=== PATIENT | male | born 1970 | race Caucasian/White ===

== ENCOUNTER → 2017-01-14 | Outpatient (REF) | payer OTHER ==
[~2017-01-14] MED LIST: ASPI325T; METO25TA2; PLAV75TA2; ZOCO40TA
== END ==
LOC: EEVIPCON 12:34 → M LAB REF 12:34
PROVIDERS: ATTEND Physician Assistant Medical
DX: L02.511 Cutaneous abscess of right hand (principal)

== ENCOUNTER 2019-03-10 04:03 | Emergency (ER) | payer MEDICAID, OTHER, SELFPAY ==
[~2019-03-10] VITALS: Ht 177.8 cm; Wt 81.8 kg
[2019-03-10] MEDS ORDERED: ASPIRIN 81 MG CHEW TABLET PO ONE (04:15)
[2019-03-10] MEDS: NITROGLYCERIN 0.4 MG SUBL TABLET SL PRN ×3 (04:28→04:54)
[2019-03-10 04:35] LABS: BASO % 0.4 % (0.0-1.0); EOS # 0.1 10^3/uL (0.0-0.5); EOS % 0.6 % (0.0-3.0); HEMATOCRIT 47.6 % (42.0-52.0); HEMOGLOBIN 15.6 g/dl (13.5-17.5); LYMPH # 1.8 10^3/uL (1.5-5.0); LYMPH % 18.1 % (24.0-44.0); MEAN CORPUSCULAR HEMOGLOBIN 30.7 pg (27.0-33.0); MEAN CORPUSCULAR HGB CONC 32.8 g/dl (32.0-36.5); MEAN CORPUSCULAR VOLUME 93.7 fl (80.0-96.0); MONO # 1.1 10^3/uL (0.0-0.8); MONO % 10.9 % (0.0-5.0); NEUTROPHILS # 6.8 10^3/uL (1.5-8.5); NEUTROPHILS % 69.5 % (36.0-66.0); PLATELET COUNT, AUTOMATED 208 10^3/uL (150-450); RED BLOOD COUNT 5.08 10^6/uL (4.30-6.10); WHITE BLOOD COUNT 9.8 10^3/uL (4.0-10.0)
[2019-03-10] MEDS ORDERED: ISOVUE-370 76% 100ML VIAL (Q9967) As Ordered ONE (04:39)
[2019-03-10 04:45] LABS: INR 1.05; PROTHROMBIN TIME 13.4 SECONDS (11.8-14.0)
[2019-03-10 04:46] LABS: PARTIAL THROMBOPLASTIN TIME 30.2 SECONDS (25.0-38.4)
[2019-03-10 05:02] LABS: ALBUMIN 4.4 GM/DL (3.2-5.2); ALT/SGPT 26 U/L (12-78); BILIRUBIN,DIRECT 0.2 MG/DL (0.0-0.2); BILIRUBIN,TOTAL 0.7 MG/DL (0.2-1.0); BLOOD UREA NITROGEN 17 MG/DL (7-18); CALCIUM LEVEL 9.6 MG/DL (8.5-10.1); CARBON DIOXIDE LEVEL 22 MEQ/L (21-32); CHLORIDE LEVEL 110 MEQ/L (98-107); CK-MB VALUE MASS 4.1 NG/ML (<3.6); CPK CREATINE PHOSPHOKINASE 359 U/L (39-308); CREATININE FOR GFR 1.34 MG/DL (0.70-1.30); FREE T4 0.94 NG/DL (0.76-1.46); GLOMERULAR FILTRATION RATE > 60.0 (>56); GLUCOSE, FASTING 77 MG/DL (70-100); LIPASE 96 U/L (73-393); MB/CK RELATIVE INDEX 1.14 (< OR =4); POTASSIUM SERUM 4.4 MEQ/L (3.5-5.1); SODIUM LEVEL 141 MEQ/L (136-145); TOTAL PROTEIN 7.3 GM/DL (6.4-8.2); TROPONIN I 0.06 NG/ML (< 0.10)
--- NOTE | 2019-03-10 05:31 | REPVR ---
PROCEDURE INFORMATION: Exam: CT Angiography Chest With Contrast Exam date and time: 03/10/2019 4:43 AM Clinical history: 48 years old, male; Chest pain; Additional info: Chest pain rad to back R/O dissection TECHNIQUE: Imaging protocol: Computed tomographic angiography of the chest with intravenous contrast. 3D rendering: MIP and 3D reconstructed images were created and reviewed. Radiation optimization: All CT scans at this facility use at least one of these dose optimization techniques: automated exposure control; mA and/or kV adjustment per patient size (includes targeted exams where dose is matched to clinical indication); or iterative reconstruction. Contrast material: ISOVUE 370; Contrast volume: 75 ml; Contrast route: IV; COMPARISON: CT Chest with contrast 10/01/2014 9:54 PM FINDINGS: Pulmonary arteries: The study is nondiagnostic for the evaluation of pulmonary arteries due to poor opacification. Aorta: The thoracic aorta is normal in caliber with no evidence of dissection, ulcerative plaque or rupture. Lungs: There is bilateral posterior dependent lung atelectases. Pleural space: Unremarkable. No pneumothorax. No pleural effusion. Heart: Coronary vascular calcifications seen particularly in the LAD and RCA. There is apparent thickening of the left ventricle wall and interventricular septum. Liver: The liver is hypoattenuated. Lymph nodes: Unremarkable. No enlarged lymph nodes. Bones/joints: There is mild loss of height of T11 vertebral body with a large Schmorl's node in the superior endplate. This is unchanged since 2014. Soft tissues: Unremarkable. IMPRESSION: 1. No CT evidence of thoracic aortic aneurysm, dissection, ulcerative plaque or rupture. 2. Possible left ventricular hypertrophy. Correlation with echocardiography is suggested. 3. Coronary vascular calcification particularly in the LAD and RCA. 4. Fatty infiltration of the liver. Electronically signed by: Altaf Plummer On 03/10/2019 05:30:47 AM
[2019-03-10] MEDS ORDERED: HEPARIN DRIP 25,000 UNITS in IV 1 EA IV SCH (05:48)
[2019-03-10] MEDS ORDERED: CLOPIDOGREL 300 MG TAB (PLAVIX) PO STA (05:48)
[2019-03-10] MEDS ORDERED: NITROGLYCERIN 2% OINT 1 GM *U/D* PKT TOP ONE (06:00)
[2019-03-10] MEDS ORDERED: HEPARIN SOD (PORCINE) 5000 UNITS/ML VIAL IV ONE (06:00)
[2019-03-10 06:07] VITALS: BP 112/69
[2019-03-10 06:42] VITALS: BP 127/73
== END 2019-03-10 06:44 | disposition short-term general hospital (02) ==
LOC: M ED 04:03
DX: I20.0 Unstable angina (principal); K76.0 Fatty (change of) liver, not elsewhere classified; I25.84 Coronary atherosclerosis due to calcified coronary lesion; I25.2 Old myocardial infarction; I10 Essential (primary) hypertension; Z95.5 Presence of coronary angioplasty implant and graft; F17.210 Nicotine dependence, cigarettes, uncomplicated
CPT/HCPCS: 71275; 80047; 80048; 80076; 82550; 82553; 83690; 84439; 84443; 85025; 85610; 85730; 93041; 94760; 96374; 99285; Q9967

== ENCOUNTER 2019-09-24 12:32 | Day surgery (SDC) | payer OTHER ==
[~2019-09-24] VITALS: Ht 177.8 cm; Wt 102.1 kg
[2019-09-24] MEDS ORDERED: ceFAZolin SOD 2 GM in IV 1 EA IV ONE (12:45)
[2019-09-24] MEDS ORDERED: KEFL500C17 PO (13:13)
[2019-09-24] MEDS ORDERED: CLIN300C5 PO (13:13)
[2019-09-24] MEDS ORDERED: CARV6.25 PO (13:13)
[2019-09-24] MEDS ORDERED: LEVO100T5 PO (13:13)
[2019-09-24] MEDS ORDERED: ASPI81TA26 PO (13:13)
[2019-09-24] MEDS ORDERED: OXYC1TAB23 PO (13:13)
[2019-09-24] MEDS ORDERED: LISI-542 PO (13:13)
[2019-09-24] MEDS ORDERED: CLOP75TA2 PO (13:13)
[2019-09-24] MEDS ORDERED: ATOR40TA75 PO (13:13)
[2019-09-24] MEDS ORDERED: LOSA100T50 PO (13:13)
[2019-09-24] MEDS ORDERED: NITR0.4S14 SL (13:13)
[2019-09-24] MEDS ORDERED: MELA10CA PO (13:13)
[2019-09-24] MEDS ORDERED: BUPIVACAINE/EPIN 0.25% 30 ML VIAL As Ordered ONE (14:22)
[2019-09-24] MEDS ORDERED: LIDOCAINE 2% 100MG/5ML SDV (FOR ANES.) As Ordered ONE (14:55)
[2019-09-24] MEDS ORDERED: ONDANSETRON 4MG/2ML VIAL As Ordered ONE (14:55)
[2019-09-24] MEDS ORDERED: fentaNYL 250 MCG/5 ML INJECTION (J3010) As Ordered ONE (14:55)
[2019-09-24] MEDS ORDERED: dexameTHASONE 4 MG/ML 1ML VIAL (J1100 PER 1MG) As Ordered ONE (14:55)
[2019-09-24] MEDS ORDERED: MIDAZOLAM INJ 2MG/2ML VIAL (J2250 PER 1MG) As Ordered ONE (14:55)
[2019-09-24] MEDS ORDERED: propofoL 200 MG/20 ML VIAL As Ordered ONE (14:55)
[2019-09-24] MEDS ORDERED: ePHEDrine SULFATE 25 MG/5 ML(5MG/ML) SYRINGE As Ordered ONE (15:07)
[2019-09-24] MEDS ORDERED: HYDROMORPHONE HCL 0.5 MG/ 0.5 ML SYRINGE (J1170 PER 1) IV PRN (16:00)
[2019-09-24] MEDS ORDERED: oxyCODONE 5MG TAB PO PRN ×2 (16:00)
[2019-09-24] MEDS ORDERED: LR 1,000 ML IV SCH (16:00)
[2019-09-24] MEDS ORDERED: ONDANSETRON 4MG/2ML VIAL IV PRN (16:00)
[2019-09-24] MEDS ORDERED: fentaNYL 100 MCG/2 ML INJECTION (J3010) IV PRN (16:00)
[2019-09-24 16:55] VITALS: BP 145/93
--- NOTE | 2019-09-24 17:01 | RO ---
DATE OF PROCEDURE: 09/24/2019 PREPROCEDURE DIAGNOSIS: Left index finger infection with extensor tendon laceration. POSTPROCEDURE DIAGNOSIS: Left index finger infection with extensor tendon laceration, open fracture of P1 and P2 interarticular at the proximal interphalangeal (PIP) with septic arthritis of the proximal interphalangeal joint. PROCEDURE: SURGEON: Yuri Vilchis MD AIRCONDITIONING ENGINEER: None. ANESTHESIA: INDICATIONS: This is a 49-year-old male that suffered a traumatic laceration to his left index finger and subsequent infection with extensor tendon injury. He was placed on antibiotics in the emergency room (ER). We discussed operative intervention, including the benefits and risks, including, but not limited to, infection, damage to surrounding structures, incomplete relief and need for further surgery, and patient wished to proceed. TOURNIQUET TIME: 20 minutes. PREOPERATIVE ANTIBIOTICS: 2 grams of Ancef. SPECIMENS: Two cultures were taken along with specimen for Gram stain and culture. COMPLICATIONS: None. BLOOD LOSS: Minimal. DESCRIPTION OF PROCEDURE: The patient was brought back to the operating room (OR) in the supine position, underwent moderate sedation at which point we had a time-out confirming side, site, and surgery. Once in agreement, we used 10 mL of 0.25% Marcaine with epinephrine in the form of a digital block. We then prepped and draped the left hand in the usual fashion. We then elevated the tourniquet up to 250 mmHg, extended his transverse incision over the PIP proximally and distally in a zigzag oblique form, encasing most of the middle phalanx and proximal phalanx. At which point, we were able to identify the proximal and distal aspect of the extensor tendon with a laceration right at the PIP just proximal to the central slip insertion. We encountered gross purulence in subcutaneous tissue. We then extended the tendon laceration radially and ulnarly to get greater exposure. We then opened up the capsule of the PIP to expose an open fracture with cortical defect of the proximal and middle phalanx along with purulence within the joint. At which point, we used a combination of Stiefel curettes and rongeur to sharply debride both the open fractures of the middle and proximal phalanx along with irrigate thoroughly near the joints to treat the septic arthritis of the PIP along with the open fractures. Once we were happy with the debridement both deep and superficially, we repaired the extensor tendon laceration with #3-0 PDS, and then we closed the skin with #3-0 nylon. The patient was placed in an extension blocking splint with the wrist in extension of fall four fingers. Tourniquet was let down, patient was awakened and taken to the post-anesthesia care unit (PACU) in stable condition. POSTOPERATIVE PLAN: The patient is to continue with antibiotics. We will followup on the cultures and if need be, we will change the antibiotics. He will also work on pain control. Will him form an appointment with a hand physical therapist to make a Thermoplastic splint so that he can have guided range of motion exercises. The patient expressed understanding and agreement with the plan ahead of time.
== END 2019-09-24 16:57 | disposition home or self-care (01) ==
LOC: M SDC 12:32
PROVIDERS: ATTEND Orthopaedic Surgery Hand Surgery
DX: S62.641B Nondisplaced fracture of proximal phalanx of left index finger, initial encounter for open fracture (principal); S62.651A Nondisplaced fracture of middle phalanx of left index finger, initial encounter for closed fracture; L03.012 Cellulitis of left finger; I10 Essential (primary) hypertension; E03.9 Hypothyroidism, unspecified; I25.10 Atherosclerotic heart disease of native coronary artery without angina pectoris; Z98.61 Coronary angioplasty status; E78.5 Hyperlipidemia, unspecified; F41.9 Anxiety disorder, unspecified; F32.9 Major depressive disorder, single episode, unspecified; Z79.82 Long term (current) use of aspirin; Z79.899 Other long term (current) drug therapy; Z79.01 Long term (current) use of anticoagulants
CPT/HCPCS: 11011; 26418; 26735; 87070; 87075; 87077; 87186; 87205; 88304; J0690; J1100; J2250; J2405; J3010; U0002

== ENCOUNTER 2019-10-06 21:14 | Emergency (ER) | payer OTHER ==
[~2019-10-06] VITALS: Ht 177.8 cm; Wt 104.0 kg
[~2019-10-06 21:14] MED LIST changes: +ASPI81TA26 PO; +ATOR40TA75 PO; +CARV6.25 PO; +CLIN300C5 PO; +CLOP75TA2 PO; +KEFL500C17 PO; +LEVO100T5 PO; +LISI-542 PO; +LOSA100T50 PO; +MELA10CA PO; +NITR0.4S14 SL; +OXYC1TAB23 PO
[2019-10-06 21:19] VITALS: BP 190/105
[2019-10-06] MEDS ORDERED: DOXYCYCLINE (21:19)
[2019-10-06] MEDS ORDERED: OXYCOD/APAP (21:19)
== END 2019-10-06 21:53 | disposition left against medical advice (07) ==
LOC: M ED 21:14
DX: Z53.21 Procedure and treatment not carried out due to patient leaving prior to being seen by health care provider (principal)

== ENCOUNTER → 2019-12-31 | Outpatient (CLI) | payer MEDICAID ==
[~2019-12-31] MED LIST changes: +DOXYCYCLINE; +OXYCOD/APAP
== END ==
LOC: M OUTALCOH 07:43
PROVIDERS: ATTEND Psychiatry & Neurology Addiction Medicine
DX: F14.20 Cocaine dependence, uncomplicated (principal)

== ENCOUNTER 2020-01-18 08:45 | Outpatient (RCR) | payer MEDICAID | END 2020-01-20 | LOC: M OUTALCOH 08:45 | PROVIDERS: ATTEND Psychiatry & Neurology Addiction Medicine | DX: F14.20 Cocaine dependence, uncomplicated (principal); F17.200 Nicotine dependence, unspecified, uncomplicated ==

== ENCOUNTER 2020-05-22 01:58 | Emergency (ER) | payer MEDICAID ==
[~2020-05-22] VITALS: Ht 177.8 cm; Wt 109.1 kg
[~2020-05-22 01:58] MED LIST changes: -CLIN300C5 PO; +CLIN300C6 PO
--- OUTSIDE RECORDS SUMMARY | 2020-05-22 02:02 | CCD | Continuity of Care Document ---
Author Author Venkatesh SAVAGE MD Organization Unknown Address [id number], [place] [address] Phone [phone] Care Team Providers Care Crm Analyst Name Role Phone Guy Morin MD AUTM [phone] Problems Active Problems Provider Date Chronic combined systolic and diastolic heart failure ECHO Onset: 09/17/2019 Chronic ischemic heart disease ECHO Onset: Electrocardiogram abnormal ECHO Onset: 2019 Palpitations Holter/Event/Telemetry Onset: 09/17/2019 Atherosclerotic heart disease of [place] coronary arter y without angina pectoris Shant Savage MD Onset: 09/17/2019 Old myocardial infarction Shant Savage MD Onset: 2019 Patient post percutaneous transluminal coronary angiop lasty Shant Savage MD Onset: 09/17/2019 Essential hypertension Shant Savage MD Onset: 0 Mixed hyperlipidemia Shant Savage MD Onset: 09/17/2019 Obesity Shant Savage MD Onset: 09/17/2019 Precordial pain Shant Savage MD Onset: 09/17/2019 Tobacco user Shant Savage MD Onset: 09/17/2019 Counseling about tobacco use Shant Savage MD Onset: Dietary management surveillance Shant Savage MD Onset: 09/17/2019 Noncompliance with treatment Shant Savage MD Onset: Social History Type Date Description Comments Sex Unknown ETOH Use Does not consume alcohol Tobacco Use Start: Unknown Patient is a current smoker, smo kes every day up to 2ppd, started at age 14 Recreational Drug Use 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 5 miles daily Exercise Type/Frequency Does housework sporadica lly Exercise Limitations Shortness Of Breath Exercise Limitations Fatigue Allergies, Adverse Reactions, Alerts Description No Known Drug Allergies Medications Active Medications SIG Qnty Indications Ordering Provide r Date Carvedilol 25mg Tablets 2 by mouth twice a day 360tabs I10 Shant Savage MD 01/04/2020 I50.42 I25.2 Chlorthalidone 25mg Tablets 1 by mouth every day 90tabs I10 Shant Savage MD 11/23/2019 Seroquel 50mg Tablets 1 by mouth once a day at bedtime Guy Morin MD 11/12/2019 Losartan Potassium 100mg Tablets 1 by mouth every night at bedtime 30tabs I50.42 Lizbet Tristan 09/17/2019 Nitrostat 0.4mg Tablets Sub 1 sl every 5min x3 as needed for chest pain Guy Morin MD 07/22/2019 Clopidogrel Bisulfate 75mg Tablets 1 by mouth every day Guy Morin MD 07/22/[address] 1 by mouth every day Guy Morin MD 07/22/2019 Euthyrox 100mcg Tablets 1 by mouth daily 90tabs Shant Savage MD 07/22/2019 Atorvastatin Calcium 40mg Tablets 1 by mouth every night at bedtime Guy Morin MD 07/22/2019 History Medications Carvedilol 25mg Tablets 1 by mouth twice a day 180tabs I10 Shant Savage MD 11/23/2019 - 01/04/2020 I50.42 I25.2 Carvedilol 12.5mg Tablets 1 by mouth twice a day 60tabs I10 Shant Savage MD 09/17/2019 - 11/23/2019 I50.42 I25.2 Spironolactone 25mg Tablets 1 by mouth every day 30tabs I50.42 Shant Savage MD 09/17/2019 - 09/19/2019 Immunizations Description No Information Available Vital Signs Date Vital Result Comment 02/16/2020 8:05am Weight 247.00 lb Home Weight 238lb home weight Height 70 inches 5'10" BMI (Body Mass Index) 35.4 kg/m2 Heart Rate 82 /min BP Systolic Sitting 153 mmHg Omron, large cuff/Ra BP Diastolic Sitting 114 mmHg Omron, large cuff/R a 01/04/2020 7:56am Weight 227.00 lb Height 70 inches 5'10" BMI (Body Mass Index) 32.6 kg/m2 Heart Rate 84 /min BP Systolic Sitting 130 mmHg Omron large cuff, Ra BP Diastolic Sitting 101 mmHg Omron large cuff, R a Results Test Acquired Date Facility Test Result H/L Range Note Laboratory test finding 03/14/2020 [facility] [place] [address] [phone] Pro-BNP 116 pg/mL 0 - 125 Basic Metabolic Panel 03/14/[address] [facility] [place] [address] [phone] Basic Metabolic Pane (SEE NOTE) 1 Sodium 142 mEq/L 134 - 153 Potassium 5.1 mEq/L High 3.6 - 5.0 Chloride 105 mEq/L 98 - 107 Co2 30 mEq/L 22 - 30 Glucose 99 mg/dL 65 - 110 BUN 13 mg/dL 7 - 21 Creatinine 1.0 mg/dL 0.7 - 1.5 BUN/Creat 13 8 - 27 Calcium 10.3 mg/dL High 8.4 - 10.2 Anion Gap 7.0 mmol/L Low 8.0 - 16.0 Age 49 yrs Afr Amer GFR >60 mL/min Non-Aa GFR >60 mL/min 2 Laboratory test finding 09/17/2019 [facility] NT-proBNP 153 pg/mL High 0-121 3 Renal Profile 09/17/2019 [facility] Glucose 109 mg/dL High 65-99 BUN 21 mg/dL 6-24 Creatinine 1.16 mg/dL 0.76-1.27 eGFR If NonAfricn Am 73 mL/min/1.73 >59 eGFR If Africn Am 84 mL/min/1.73 >59 BUN/Creatinine Ratio 18 9-20 Sodium 140 mmol/L 134-144 Potassium 5.2 mmol/L 3.5-5.2 Chloride 105 mmol/L 96-106 Carbon Dioxide, Total 20 mmol/L 20-29 Calcium 9.8 mg/dL 8.7-10.2 Phosphorus 3.5 mg/dL 2.8-4.1 Albumin 4.5 g/dL 3.8-4.9 Bilirubin Panel 09/17/2019 [facility] [place] Bilirubin, Total <0.2 mg/dL 0.0-1.2 Bilirubin, Direct 0.08 mg/dL 0.00-0.40 Bilirubin, Indirect <.12 mg/dL 0.10-0.80 Laboratory test finding 09/17/2019 [facility] [place] PDF [id number] SEE IMAGE 1 BASIC METABOLIC PANEL 2 Male GFR Interprentation 20-49 yrs >60 mL/min Normal 50-59 yrs >56 mL/min Normal 60-69 yrs >49 mL/min Normal 70-79yrs >42 mL/min Normal 80 and above >35 mL/min Normal Female GFR Interpretation 20-39 yrs >60 mL/min Normal 40-49 yrs >58 mL/min Normal 50-59 yrs >51 mL/min Normal 60-69 yrs >45 mL/min Normal 70-79 yrs >39 mL/min Normal 80 and above >32 mL/min Normal 3 The following cut-points hav e been suggested for the use of proBNP for the diagnostic evaluation of heart failure (HF) in patients with acute dyspnea: Modality Age Optimal Cut (years) Point Diagnosis (rule in HF) <50 450 pg/mL 50 - 75 900 pg/mL >75 1800 pg/mL Exclusion (rule out HF) Age independent 300 pg/mL Procedures Description No Information Available Medical Devices Description No Information Available Encounters Type Date Location Provider Dx Diagnosis Office Visit 02/16/2020 8:00a Main Office Shant Savage MD I50.4 2 Chronic combined systolic and diastolic hrt fail I10 Essential (primary) hyperten deonna Z91.128 Patient's intentl undrdose o f meds regimen for oth reason F17.210 Nicotine dependence, cigaret mindi, uncomplicated Z87.891 Personal history of nicotine dependence Z71.6 Tobacco abuse counseling Office Visit 01/04/2020 8:00a Main Office Shant Savage MD I50.4 2 Chronic combined systolic and diastolic hrt fail I10 Essential (primary) hyperten deonna F17.210 Nicotine dependence, cigaret mindi, uncomplicated Z87.891 Personal history of nicotine dependence Z71.6 Tobacco abuse counseling Office Visit 11/23/2019 1:30p Main Office Shant Savage MD I50.4 2 Chronic combined systolic and diastolic hrt fail I10 Essential (primary) hyperten deonna F17.210 Nicotine dependence, cigaret mindi, uncomplicated Z87.891 Personal history of nicotine dependence Z71.6 Tobacco abuse counseling Office Visit 11/13/2019 8:00a Main Office Shant aSvage MD I50.4 2 Chronic combined systolic and diastolic hrt fail I10 Essential (primary) hyperten deonna Z91.14 Patient's other noncomplianc e with medication regimen F17.210 Nicotine dependence, cigaret mindi, uncomplicated Z87.891 Personal history of nicotine dependence Z71.6 Tobacco abuse counseling Office Visit 09/17/2019 8:00a Main Office Shant Savage MD I50.4 2 Chronic combined systolic and diastolic hrt fail I10 Essential (primary) hyperten deonna F17.210 Nicotine dependence, cigaret mindi, uncomplicated Z87.891 Personal history of nicotine dependence Z71.6 Tobacco abuse counseling Assessments Date Code Description Provider 02/16/2020 I50.42 Chronic combined sys tolic (congestive) and diastolic (congestive) heart failure Shant Savage MD 02/16/2020 I10 Essential (primary) hypertension Shant Savage MD 02/16/2020 Z91.128 Patient's intentiona l underdosing of medication regimen for other reason Shant Savage MD 02/16/2020 F17.210 Nicotine dependence, cigarettes, uncomplicated Shant Savage MD 02/16/2020 Z87.891 Personal history of nicotine dep endence Shant Savage MD 02/16/2020 Z71.6 Tobacco abuse counseling Shant Savage MD 01/04/2020 I50.42 Chronic combined sys tolic (congestive) and diastolic (congestive) heart failure Shant Savage MD 01/04/2020 I10 Essential (primary) hypertension Shant Savage MD 01/04/2020 F17.210 Nicotine dependence, cigarettes, uncomplicated Shant Savage MD 01/04/2020 Z87.891 Personal history of nicotine dep endence Shant Savage MD 01/04/2020 Z71.6 Tobacco abuse counseling Shant Savage MD 11/23/2019 I50.42 Chronic combined sys tolic (congestive) and diastolic (congestive) heart failure Shant Savage MD 11/23/2019 I10 Essential (primary) hypertension Shant Savage MD 11/23/2019 F17.210 Nicotine dependence, cigarettes, uncomplicated Shant Savage MD 11/23/2019 Z87.891 Personal history of nicotine dep endence Shant Savage MD 11/23/2019 Z71.6 Tobacco abuse counseling Shant Savage MD 11/13/2019 I50.42 Chronic combined sys tolic (congestive) and diastolic (congestive) heart failure Shant Savage MD 11/13/2019 I10 Essential (primary) hypertension Shant Savage MD 11/13/2019 Z91.14 Patient's other noncompliance wi th medication regimen Shant Savage MD 11/13/2019 F17.210 Nicotine dependence, cigarettes, uncomplicated Shant Savage MD 11/13/2019 Z87.891 Personal history of nicotine dep endence Shant Savage MD 11/13/2019 Z71.6 Tobacco abuse counseling Shant Savage MD 09/17/2019 I50.42 Chronic combined sys tolic (congestive) and diastolic (congestive) heart failure Shant Savage MD 09/17/2019 I10 Essential (primary) hypertension Shant Savage MD 09/17/2019 F17.210 Nicotine dependence, cigarettes, uncomplicated Shant Savage MD 09/17/2019 Z87.891 Personal history of nicotine dep endence Shant Savage MD 09/17/2019 Z71.6 Tobacco abuse counseling Shant Savage MD Plan of Treatment Future Appointment(s):* 03/29/2020 12:45 pm - [facility] at Main Office 02/16/2020 - Shant Savage MD* I50.42 Chronic combined systolic (congestive) and diastolic (congestive) heart failure* New Labs:* NT Probnp QN Ser/Plas, Ordered: 02/16/20 * BMP7 W/Egfr, Ordered: 02/16/20 * Recommendations:* Patient has been taking his medications less than half the time and that he is not taking any medication for the past 2 days. He was strongly advised to be compliant with his medications and if he does not do so, he runs the risk of increased risk of as well as worsening heart failure/shortness of breath. I suggested he set an alarm on his smart phone to help him remember to take medications. Continue losartan, carvedilol, chlorthalidone at the current dosages. NT proBNP & BMP were ordered. * I10 Essential (primary) hypertension* Recommendations:* As noted above, he was encouraged to be compliant with his medications. Continue losartan, carvedilol, chlorthalidone at the current dosages. * Z91.128 Patient's intentional underdosing of medication regimen for other reason* Recommendations:* I suggested the patient set alarms on his smart phone to help him remember to take medications. I strongly emphasized the importance of being compliant with his medications to control heart failure, shortness of breath, and systemic hypertension. I brought to the patient's attention that failure to be compliant with medications increase the risk for worsening heart failure, increased risk of cardiac , and adverse outcomes of uncontrolled systemic hypertension. * F17.210 Nicotine dependence, cigarettes, uncomplicated* Recommendations:* Patient was strongly encouraged to quit smoking. Health hazards of tobacco use were reviewed with the patient including, but not all-inclusive: COPD, lung cancer, atherosclerotic disease such as carotid artery disease, CAD, and PAD. Patient does not wish to give up cigarette smoking at this time. * Z87.891 Personal history of nicotine dependence * Z71.6 Tobacco abuse counseling * All * Follow up:* Clinic visit in 6 weeks. Functional Status Functional Condition Comment Date Status Independent with all ADL's Activ e Mental Status Description No Information Available Referrals Description No Information Available
--- OUTSIDE RECORDS SUMMARY | 2020-05-22 02:02 | CCD ---
Author Author [facility] Organization [facility] Address Unknown Phone Unavailable Care Team Providers Care Composite Bond Technician Name Role Phone LiAntonionbo PA Unavailable Unavailable Li, Zhenbo PA Unavailable Unavailable Namrata Zhenbo PA Unavailable Unavailable Antonio Ottnbo PA Unavailable Unavailable ANTECOLCristina MD Unavailable Unavailable ANTECOLCristina MD Unavailable Unavailable ANTECOLCristina MD Unavailable Unavailable ANTECOLCristina MD Unavailable Unavailable ANTECOLCristina MD Unavailable Unavailable ANTECOLCristina MD Unavailable Unavailable ANTECOLCristina MD Unavailable Unavailable ANTECOLCristina MD Unavailable Unavailable ANTECOLCristina MD Unavailable Unavailable ANTECOLCristina MD Unavailable Unavailable ANTECOLCristina MD Unavailable Unavailable ANTECOLCristina MD Unavailable Unavailable ANTECOLCristina MD Unavailable Unavailable ANTECOLCristina MD Unavailable Unavailable ANTECOLCristina MD Unavailable Unavailable ANTECOLCristina MD Unavailable Unavailable ANTECOLCristina MD Unavailable Unavailable ANTECOLCristina MD Unavailable Unavailable ANTECOLCristina MD Unavailable Unavailable ANTECOLCristina MD Unavailable Unavailable ANTECOLCristina MD Unavailable Unavailable ANTECOLCristina MD Unavailable Unavailable ANTECOLCristina MD Unavailable Unavailable ANTECOLCristina MD Unavailable Unavailable ANTECOLCristina MD Unavailable Unavailable ANTECOLCristina MD Unavailable Unavailable ANTECOLCristina MD Unavailable Unavailable ANTECOL, Cristina WILLETT MD Unavailable Unavailable ANTECOL, Cristina WILLETT MD Unavailable Unavailable ANTECOL, Cristina WILLETT MD Unavailable Unavailable ANTECOL, Cristina WILLETT MD Unavailable Unavailable ANTECOL, Cristina WILLETT MD Unavailable Unavailable ANTECOL, Cristina WILLETT MD Unavailable Unavailable ANTECOL, Cristina WILLETT MD Unavailable Unavailable ANTECOL, Cristina WILLETT MD Unavailable Unavailable ANTECOL, Cristina WILLETT MD Unavailable Unavailable ANTECOL, Cristina WILLETT MD Unavailable Unavailable ANTECOL, Cristina WILLETT MD Unavailable Unavailable ANTECOL, Cristina WILLETT MD Unavailable Unavailable ANTECOL, Cristina WILLETT MD Unavailable Unavailable ANTECOL, Cristina WILLETT MD Unavailable Unavailable ANTECOL, Cristina WILLETT MD Unavailable Unavailable ANTECOL, Cristina WILLETT MD Unavailable Unavailable ANTECOL, Cristina WILLETT MD Unavailable Unavailable ANTECOL, Cristina WILLETT MD Unavailable Unavailable ANTECOL, Cristina WILLETT MD Unavailable Unavailable ANTECOL, Cristina WILLETT MD Unavailable Unavailable ANTECOL, Cristina WILLETT MD Unavailable Unavailable ANTECOL, Cristina WILLETT MD Unavailable Unavailable ANTECOL, Cristina WILLETT MD Unavailable Unavailable ANTECOL, Cristina WILLETT MD Unavailable Unavailable ANTECOL, Cristina WILLETT MD Unavailable Unavailable ANTECOL, Cristina WILLETT MD Unavailable Unavailable ANTECOL, Cristina WILLETT MD Unavailable Unavailable ANTECOL, Cristina WILLETT MD Unavailable Unavailable Ajay Grossman MD Unavailable Unavailable Ajay Grossman MD Unavailable Unavailable Ajay Grossman MD Unavailable Unavailable Ajay Grossman MD Unavailable Unavailable Ajay Grossman MD Unavailable Unavailable Ajay Grossman MD Unavailable Unavailable Ajay Grossman MD Unavailable Unavailable Ajay Grossman MD Unavailable Unavailable Ajay Grossman MD Unavailable Unavailable Ajay Grossman MD Unavailable Unavailable Ajay Grossman MD Unavailable Unavailable Ajay Grossman MD Unavailable Unavailable Ajay Grossman MD Unavailable Unavailable Ajay Grossman MD Unavailable Unavailable Ajay Grossman MD Unavailable Unavailable Ajay Grossman MD Unavailable Unavailable Ajay Grossman MD Unavailable Unavailable Rashida Morin MD Unavailable Unavailable Rashida Morin MD Unavailable Unavailable Rashida Morin MD Unavailable Unavailable Rashida Morin MD Unavailable Unavailable Rashida Morin MD Unavailable Unavailable Rashida Morin MD Unavailable Unavailable Rashida Morin MD Unavailable Unavailable Rashida Morin MD Unavailable Unavailable Rashida Morin MD Unavailable Unavailable Rashida Morin MD Unavailable Unavailable Rashida Morin MD Unavailable Unavailable Rashida Morin MD Unavailable Unavailable Rashida Morin MD Unavailable Unavailable Rashida Morin MD Unavailable Unavailable Rashida Morin MD Unavailable Unavailable Rashida Morin MD Unavailable Unavailable Rashida Morin MD Unavailable Unavailable Rashida Morin MD Unavailable Unavailable Rashida Morin MD Unavailable Unavailable Rashida Morin MD Unavailable Unavailable Rashida Morin MD Unavailable Unavailable Rsahida Morin MD Unavailable Unavailable Rashida Morin MD Unavailable Unavailable Rashida Morin MD Unavailable Unavailable Rashida Morin MD Unavailable Unavailable Rashida Morin MD Unavailable Unavailable Rashida Morin MD Unavailable Unavailable Rashida Morin MD Unavailable Unavailable Rashida Morin MD Unavailable Unavailable Rashida Morin MD Unavailable Unavailable Rashida Morin MD Unavailable Unavailable Rashida Morin MD Unavailable Unavailable Rashida Morin MD Unavailable Unavailable Rashida Morin MD Unavailable Unavailable Rashida Morin MD Unavailable Unavailable Rashida Morin MD Unavailable Unavailable Rashida Morin MD Unavailable Unavailable Rashida Morin MD Unavailable Unavailable Rashida Morin MD Unavailable Unavailable Rashida Morin MD Unavailable Unavailable Rashida Morin MD Unavailable Unavailable Rashida Morin MD Unavailable Unavailable Rashida Morin MD Unavailable Unavailable Rashida Morin MD Unavailable Unavailable Rashida Morin MD Unavailable Unavailable Rashida Morin MD Unavailable Unavailable Rashida Morin MD Unavailable Unavailable Rashida Morin MD Unavailable Unavailable Rashida Morin MD Unavailable Unavailable Rashida Morin MD Unavailable Unavailable Rashida Morin MD Unavailable Unavailable Rashida Morin MD Unavailable Unavailable Rashida Morin MD Unavailable Unavailable Rashida Morin MD Unavailable Unavailable Rashida Morin MD Unavailable Unavailable Rashida Morin MD Unavailable Unavailable Rashida Morin MD Unavailable Unavailable Rashida Morin MD Unavailable Unavailable Rashida Morin MD Unavailable Unavailable Rashida Morin MD Unavailable Unavailable Rashida Morin MD Unavailable Unavailable Rashida Morin MD Unavailable Unavailable Rashida Morin MD Unavailable Unavailable Rashida Morin MD Unavailable Unavailable Rashida Morin MD Unavailable Unavailable Rashida Morin MD Unavailable Unavailable Rashida Morin MD Unavailable Unavailable Rashida Morin MD Unavailable Unavailable Rashida Morin MD Unavailable Unavailable Rashida Morin MD Unavailable Unavailable Rashida Morin MD Unavailable Unavailable Rashida Morin MD Unavailable Unavailable Rashida Morin MD Unavailable Unavailable Rashida Morin MD Unavailable Unavailable Rashida Morin MD Unavailable Unavailable Rashida Morin MD Unavailable Unavailable Rashida Morin MD Unavailable Unavailable Rashida Morin MD Unavailable Unavailable Rashida Morin MD Unavailable Unavailable Rashida Morin MD Unavailable Unavailable Rashida Morin MD Unavailable Unavailable Rashida Morin MD Unavailable Unavailable Rashida Morin MD Unavailable Unavailable Rashida Morin MD Unavailable Unavailable Rashida Morin MD Unavailable Unavailable Rashida Morin MD Unavailable Unavailable Rashida Morin MD Unavailable Unavailable Rashida Morin MD Unavailable Unavailable Rashida Morin MD Unavailable Unavailable Tamie Vilchis MD Unavailable Unavailable Tamie Vilchis MD Unavailable Unavailable Tamie Vilchis MD Unavailable Unavailable Tamie Vilchis MD Unavailable Unavailable Tamie Vilchis MD Unavailable Unavailable Tamie Vilchis MD Unavailable Unavailable Tamie Vilchis MD Unavailable Unavailable Tamie Vilchis MD Unavailable Unavailable Tamie Vilchis MD Unavailable Unavailable Tamie Vilchis MD Unavailable Unavailable Tamie Vilchis MD Unavailable Unavailable Tamie Vilchis MD Unavailable Unavailable Tamie Vilchis MD Unavailable Unavailable Tamie Vilchis MD Unavailable Unavailable Tamie Vilchis MD Unavailable Unavailable Tamei Vilchis MD Unavailable Unavailable Tamie Vilchis MD Unavailable Unavailable Tamie Vilchis MD Unavailable Unavailable Tamie Vilchis MD Unavailable Unavailable Tamie Vilchis MD Unavailable Unavailable Tamie Vilchis MD Unavailable Unavailable Tamie Vilchis MD Unavailable Unavailable Tamie Vilchis MD Unavailable Unavailable Tamie Vilchis MD Unavailable Unavailable Tamie Vilchis MD Unavailable Unavailable NON, PHYSICIAN STAFF Unavailable Unavailable ISELA GARCIA MD Unavailable Unavailable JOSE MAMonicaBOLIDIA GREENFIELD MD Unavailable Unavailable JOSE MAMonicaBOLIDIA GREENFIELD MD Unavailable Unavailable JOSE MAQBOLIDIA GIN MD Unavailable Unavailable JOSE MAQBOOL GIN MD Unavailable Unavailable JOSE MAQBOOL GIN MD Unavailable Unavailable JOSE MAQBOOL GIN MD Unavailable Unavailable JOSE MAQBOOL GIN Unavailable Unavailable JOSE MAQBOOL GIN Unavailable Unavailable JOSE MAQBOOL GIN Unavailable Unavailable JOSE MAQBOOL GIN MD Unavailable Unavailable JOSE MAQBOOL GIN MD Unavailable Unavailable JOSE MAQBOOL GIN MD Unavailable Unavailable JOSE MAQBOOL GIN Unavailable Unavailable JOSE, MAQBOOL GIN MD Unavailable Unavailable JOSE, MAQBOOL GIN MD Unavailable Unavailable JOSE, MAQBOOL GIN MD Unavailable Unavailable JOSE, MAQBOOL GIN MD Unavailable Unavailable JOSE, MAQBOOL GIN MD Unavailable Unavailable JOSE, MAQBOOL GIN MD Unavailable Unavailable JOSE, MAQBOOL GIN MD Unavailable Unavailable JOSE, MAQBOOL GIN MD Unavailable Unavailable JOSE, MAQBOOL GIN MD Unavailable Unavailable JOSE, MAQBOOL GIN MD Unavailable Unavailable JOSE, MAQBOOL GIN MD Unavailable Unavailable JOSE, MAQBOOL GIN MD Unavailable Unavailable OJSE, MAQBOOL GIN MD Unavailable Unavailable JOSE, MAQBOOL GIN MD Unavailable Unavailable JOSE, MAQBOOL GIN MD Unavailable Unavailable JOSE, MAQBOOL GIN MD Unavailable Unavailable JOSE, MAQBOOL GIN MD Unavailable Unavailable JOSE, MAQBOOL GIN MD Unavailable Unavailable JOSE, MAQBOOL GIN MD Unavailable Unavailable JOSE, MAQBOOL GIN MD Unavailable Unavailable JOSE, MAQBOOL GIN MD Unavailable Unavailable JOSE, MAQBOOL GIN MD Unavailable Unavailable JOSE, MAQBOOL GIN MD Unavailable Unavailable JOSE, MAQBOOL GIN MD Unavailable Unavailable JOSE, MAQBOOL GIN MD Unavailable Unavailable JOSE, MAQBOOL GIN MD Unavailable Unavailable JOSE, MAQBOOL GIN MD Unavailable Unavailable JOSE, MAQBOOL GIN MD Unavailable Unavailable JOSE, MAQBOOL GIN MD Unavailable Unavailable JOSE, MAQBOOL GIN MD Unavailable Unavailable JOSE, MAQBOOL GIN MD Unavailable Unavailable JOSE, MAQBOOL GIN MD Unavailable Unavailable JOSE, MAQBOOL GIN MD Unavailable Unavailable JOSE, MAQBOOL GIN MD Unavailable Unavailable JOSE, MAQBOOL GIN MD Unavailable Unavailable JOSE, MAQBOOL GIN MD Unavailable Unavailable JOSE, MAQBOOL GIN MD Unavailable Unavailable JOSE, MAQBOOL GIN MD Unavailable Unavailable JOSE, MAQBOOL GIN MD Unavailable Unavailable JOSE, MAQBOOL GIN MD Unavailable Unavailable JOSE, MAQBOOL GIN MD Unavailable Unavailable JOSE, MAQBOOL GIN MD Unavailable Unavailable JOSE, MAQBOOL GIN MD Unavailable Unavailable JOSE, MAQBOOL GIN MD Unavailable Unavailable JOSE, MAQBOOL GIN MD Unavailable Unavailable JOSE, MAQBOOL GIN MD Unavailable Unavailable JOSE, MAQBOOL GIN MD Unavailable Unavailable JOSE, MAQBOOL GIN MD Unavailable Unavailable JOSE, MAQBOOL GIN MD Unavailable Unavailable JOSE, MAQBOOL GIN MD Unavailable Unavailable JOSE, MAQBOOL GIN MD Unavailable Unavailable JOSE, MAQBOOL GIN MD Unavailable Unavailable JOSE, MAQBOOL GIN MD Unavailable Unavailable JOSE, MAQBOOL GIN MD Unavailable Unavailable JOSE, MAQBOOL GIN MD Unavailable Unavailable JOSE, MAQBOOL GIN MD Unavailable Unavailable JOSE, MAQBOOL GIN MD Unavailable Unavailable JOSE, MAQBOOL GIN MD Unavailable Unavailable JOSE, MAQBOOL GIN MD Unavailable Unavailable JOSE, MAQBOOL GIN MD Unavailable Unavailable JOSE, MAQBOOL GIN MD Unavailable Unavailable Tamie Vilchis MD Unavailable Unavailable Tamie Vilchis MD Unavailable Unavailable Tamie Vilchis MD Unavailable Unavailable Tamie Vilchis MD Unavailable Unavailable Tamie Vilchis MD Unavailable Unavailable Tamie Vilchis MD Unavailable Unavailable Tamie Vilchis MD Unavailable Unavailable Tamie Vilchis MD Unavailable Unavailable Tamie Vilchis MD Unavailable Unavailable Tamie Vilchis MD Unavailable Unavailable Tamie Vilchis MD Unavailable Unavailable Tamie Vilchis MD Unavailable Unavailable Tamie Vilchis MD Unavailable Unavailable Tamie Vilchis MD Unavailable Unavailable Tamie Vilchis MD Unavailable Unavailable Tamie Vilchis MD Unavailable Unavailable Tamie Vilchis MD Unavailable Unavailable Tamie Vilchis MD Unavailable Unavailable Tamie Vilchis MD Unavailable Unavailable Tamie Vilchis MD Unavailable Unavailable Tamie Vilchis MD Unavailable Unavailable Tamie Vilchis MD Unavailable Unavailable Tamie Vilchis MD Unavailable Unavailable Tamie Vilchis MD Unavailable Unavailable Tamie Vilchis MD Unavailable Unavailable Rashida Morin MD Unavailable Unavailable Rashida Morin MD Unavailable Unavailable Rashida Morin MD Unavailable Unavailable Rashida Morin MD Unavailable Unavailable Rashida Morin MD Unavailable Unavailable Rashida Morin MD Unavailable Unavailable Rashida Morin MD Unavailable Unavailable Rashida Morin MD Unavailable Unavailable Rashida Morin MD Unavailable Unavailable Rashida Morin MD Unavailable Unavailable Rashida Morin MD Unavailable Unavailable Rashida Morin MD Unavailable Unavailable Rashida Morin MD Unavailable Unavailable Rashida Morin MD Unavailable Unavailable Rashida Morin MD Unavailable Unavailable Rashida Morin MD Unavailable Unavailable Rashida Morin MD Unavailable Unavailable Rashida Morin MD Unavailable Unavailable Rashida Morin MD Unavailable Unavailable Rashida Morin MD Unavailable Unavailable Rashida Morin MD Unavailable Unavailable Rashida Morin MD Unavailable Unavailable Rashida Morin MD Unavailable Unavailable Rashida Morin MD Unavailable Unavailable Rashida Morin MD Unavailable Unavailable Rashida Morin MD Unavailable Unavailable Rashida Morin MD Unavailable Unavailable Rashida Morin MD Unavailable Unavailable Rashida Morin MD Unavailable Unavailable Rashida Morin MD Unavailable Unavailable Rashida Morin MD Unavailable Unavailable Rashida Morin MD Unavailable Unavailable Rashida Morin MD Unavailable Unavailable Rashida Morin MD Unavailable Unavailable Rashdia Morin MD Unavailable Unavailable Rashida Morin MD Unavailable Unavailable Rashida Morin MD Unavailable Unavailable Rashida oMrin MD Unavailable Unavailable Rashida Morin MD Unavailable Unavailable Rashida Morin MD Unavailable Unavailable Rashida Morin MD Unavailable Unavailable Rashida Morin MD Unavailable Unavailable Rashida Morin MD Unavailable Unavailable Rashida Morin MD Unavailable Unavailable Rashida Morin MD Unavailable Unavailable Rashida Morin MD Unavailable Unavailable Rashida Morin MD Unavailable Unavailable Rashida Morin MD Unavailable Unavailable Rashida Morin MD Unavailable Unavailable Rashida Morin MD Unavailable Unavailable Rashida Morin MD Unavailable Unavailable Rashida Morin MD Unavailable Unavailable Rashida Morin MD Unavailable Unavailable Rashida Morin MD Unavailable Unavailable Rashida Morin MD Unavailable Unavailable Rashida Morin MD Unavailable Unavailable Rashida Morin MD Unavailable Unavailable Rashida Morin MD Unavailable Unavailable Rashida Morin MD Unavailable Unavailable Rashida oMrin MD Unavailable Unavailable Rashida Morin MD Unavailable Unavailable Rashida Morin MD Unavailable Unavailable Rashida Morin MD Unavailable Unavailable Rashida Morin MD Unavailable Unavailable Rashida Morin MD Unavailable Unavailable Rashida Morin MD Unavailable Unavailable Rashida Morin MD Unavailable Unavailable Rashida Morin MD Unavailable Unavailable Rashida Morin MD Unavailable Unavailable Rashida Morin MD Unavailable Unavailable Rashida Morin MD Unavailable Unavailable Rashida Morin MD Unavailable Unavailable Rashida Morin MD Unavailable Unavailable Rashida Morin MD Unavailable Unavailable Rashida Morin MD Unavailable Unavailable Rashida Morin MD Unavailable Unavailable Rashida Morin MD Unavailable Unavailable Rashida Morin MD Unavailable Unavailable Rashida Morin MD Unavailable Unavailable Rashida Morin MD Unavailable Unavailable Rashida Morin MD Unavailable Unavailable Rashida Morin MD Unavailable Unavailable Rashida Morin MD Unavailable Unavailable Rashida Morin MD Unavailable Unavailable Rashida Morin MD Unavailable Unavailable Rashida Morin MD Unavailable Unavailable Rashida Morin MD Unavailable Unavailable Rashida Morin MD Unavailable Unavailable Rashida Morin MD Unavailable Unavailable ADIA MCKENZIE MD Unavailable Unavailable ADIA MCKENIZE MD Unavailable Unavailable ADIA MCKENZIE MD Unavailable Unavailable ADIA MCKENZIE MD Unavailable Unavailable ADIA MCKENZIE MD Unavailable Unavailable ADIA MCKENZIE MD Unavailable Unavailable ADIA MCKENZIE MD Unavailable Unavailable ADIA MCKENZIE MD Unavailable Unavailable ADIA MCKENZIE MD Unavailable Unavailable ADIA MCKENZIE MD Unavailable Unavailable ADIA MCKENZIE MD Unavailable Unavailable ADIA MCKENZIE MD Unavailable Unavailable ADIA MCKENZIE MD Unavailable Unavailable ADIA MCKENZIE MD Unavailable Unavailable ADIA MCKENZIE MD Unavailable Unavailable ADIA MCKENZIE MD Unavailable Unavailable Samantha HERNANDEZ MD Unavailable Unavailable Samantha HERNANDEZ MD Unavailable Unavailable Samantha HERNANDEZ MD Unavailable Unavailable Samantha HERNANDEZ MD Unavailable Unavailable Samantha HERNANDEZ MD Unavailable Unavailable Samantha HERNANDEZ MD Unavailable Unavailable Samantha HERNANDEZ MD Unavailable Unavailable Samantha HERNANDEZ MD Unavailable Unavailable Samantha HERNANDEZ MD Unavailable Unavailable Samantha HERNANDEZ MD Unavailable Unavailable Samantha HERNANDEZ MD Unavailable Unavailable Samantha HERNANDEZ MD Unavailable Unavailable Samantha HERNANDEZ MD Unavailable Unavailable Samantha HERNANDEZ MD Unavailable Unavailable Samantha HERNANDEZ MD Unavailable Unavailable Samantha HERNANDEZ MD Unavailable Unavailable Samantha HERNANDEZ MD Unavailable Unavailable Samantha HERNANDEZ MD Unavailable Unavailable Samantha HERNANDEZ MD Unavailable Unavailable Samantha HERNANDEZ MD Unavailable Unavailable Samantha HERNANDEZ MD Unavailable Unavailable Samantha HERNANDEZ MD Unavailable Unavailable Samantha HERNANDEZ MD Unavailable Unavailable Samantha HERNANDEZ MD Unavailable Unavailable Samantha HERNANDEZ MD Unavailable Unavailable Samantha HERNANDEZ MD Unavailable Unavailable Sophie BRENNAN MD Unavailable Unavailable VENESophie STRONG MD Unavailable Unavailable VENETAE, Sophie HOPE MD Unavailable Unavailable VENESophie STRONG MD Unavailable Unavailable VENESophie STRONG MD Unavailable Unavailable VENESophie STRONG MD Unavailable Unavailable VENESophie STRONG MD Unavailable Unavailable VENERUSophie Chun MD Unavailable Unavailable VENERUS, Sophie HOPE MD Unavailable Unavailable ANTECOL, Cristina WILLETT MD Unavailable Unavailable ANTECOL, Cristina WILLETT MD Unavailable Unavailable ANTECOL, Cristina WILLETT MD Unavailable Unavailable ANTECOL, Cristina WILLETT MD Unavailable Unavailable ANTECOL, Cristina WILLETT MD Unavailable Unavailable ANTECOL, Cristina WILLETT MD Unavailable Unavailable ANTECOL, Cristina WILLETT MD Unavailable Unavailable ANTECOL, Cristina WILLETT MD Unavailable Unavailable ANTECOL, Cristina WILLETT MD Unavailable Unavailable ANTECOL, Cristina WILLETT MD Unavailable Unavailable ANTECOL, Cristina WILLETT MD Unavailable Unavailable ANTECOL, Cristina WILLETT MD Unavailable Unavailable ANTECOL, Cristina WILLETT MD Unavailable Unavailable ANTECOL, Cristina WILLETT MD Unavailable Unavailable ANTECOL, Cristina WILLETT MD Unavailable Unavailable ANTECOL, Cristina WILLETT MD Unavailable Unavailable ANTECOL, Cristina WILLETT MD Unavailable Unavailable ANTECOL, Cristina WILLETT MD Unavailable Unavailable ANTECOL, Cristina WILLETT MD Unavailable Unavailable ANTECOL, Cristina WILLETT MD Unavailable Unavailable ANTECOL, Cristina WILLETT MD Unavailable Unavailable ANTECOL, Cristina WILLETT MD Unavailable Unavailable ANTECOL, Cristina WILLETT MD Unavailable Unavailable ANTECOL, Cristina WILLETT MD Unavailable Unavailable ANTECOL, Cristina WILLETT MD Unavailable Unavailable ANTECOL, Cristina WILLETT MD Unavailable Unavailable ANTECOL, Cristina WILLETT MD Unavailable Unavailable ANTECOL, Cristina WILLETT MD Unavailable Unavailable ANTECOL, Cristina WILLETT MD Unavailable Unavailable ANTECOL, Cristina WILLETT MD Unavailable Unavailable ANTECOL, Cristina WILLETT MD Unavailable Unavailable ANTECOL, Cristina WILLETT MD Unavailable Unavailable ANTECOL, Cristina WILLETT MD Unavailable Unavailable ANTECOL, Cristina WILLETT MD Unavailable Unavailable ANTECOL, Cristina WILLETT MD Unavailable Unavailable ANTECOL, Cristina WILLETT MD Unavailable Unavailable ANTECOL, Cristina WILLETT MD Unavailable Unavailable ANTECOL, Cristina WILLETT MD Unavailable Unavailable ANTECOL, Cristina WILLETT MD Unavailable Unavailable ANTECOL, Cristina WILLETT MD Unavailable Unavailable ANTECOL, Cristina WILLETT MD Unavailable Unavailable ANTECOL, Cristina WILLETT MD Unavailable Unavailable ANTECOL, Cristina WILLETT MD Unavailable Unavailable ANTECOL, Cristina TAMIE SAVAGE Unavailable Unavailable ANTECOL, Cristina TAMIE SAVAGE Unavailable Unavailable ANTECOL, Cristina WILLETT MD Unavailable Unavailable ANTECOL, Cristina WILLETT MD Unavailable Unavailable ANTECOL, Cristina WILLETT MD Unavailable Unavailable ANTECOL, Cristina WILLETT MD Unavailable Unavailable ANTECOL, Cristina TAMIE SAAVGE Unavailable Unavailable ANTECOL, Cristina TAMIE SAVAGE Unavailable Unavailable ANTECOL, Cristina TAMIE SAVAGE Unavailable Unavailable ANTECOL, Cristina TAMIE SAVAGE Unavailable Unavailable ANTECOL, Cristina TAMIE SAVAGE Unavailable Unavailable ANTECOL, Cristina TAMIE SAVAGE Unavailable Unavailable Re-disclosure Warning The records that you are about to access may contain information from federally-assisted alcohol or drug abuse programs. If such information is present, then the following federally mandated warning applies: This information has been disclosed to you from records protected by federal confidentiality rules (42 CFR part 2). The federal rules prohibit you from making any further disclosure of this information unless further disclosure is expressly permitted by the written consent of the person to whom it pertains or as otherwise permitted by 42 CFR part 2. A general authorization for the release of medical or other information is NOT sufficient for this purpose. The Federal rules restrict any use of the information to criminally investigate or prosecute any alcohol or drug abuse patient.The records that you are about to access may contain highly sensitive health information, the redisclosure of which is protected by Article 27-F of the [facility] Public Health law. If you continue you may have access to information: Regarding HIV / AIDS; Provided by facilities licensed or operated by the [facility] Office of Mental Health; or Provided by the [facility] Office for People With Developmental Disabilities. If such information is present, then the following [facility] mandated warning applies: This information has been disclosed to you from confidential records which are protected by state law. State law prohibits you from making any further disclosure of this information without the specific written consent of the person to whom it pertains, or as otherwise permitted by law. Any unauthorized further disclosure in violation of state law may result in a fine or chcf sentence or both. A general authorization for the release of medical or other information is NOT sufficient authorization for further disc losure. Allergies and Adverse Reactions Type Description Substance Reaction Status Data Source(s ) No Known Drug Allergies No Known Drug Allergies [facility] Hospital Encounters Encounter Providers Location Date Indications Data Source(s ) Outpatient Attender: Guy damonr: TAMIE SAVAGE MDConsultant: STAFF NON 03/14/2020 12:15:00 PM EST - 03/14/2020 01:15:00 PM [facility] Outpatient Attender: TAMIE SAVAGE MD Main Office 02/16/2020 08:00:00 AM EDT [facility] ([facility]) Outpatient Attender: Lucia Ott PAConsultant: STAFF NON 02/03/2020 05:21:00 PM EDT - 02/03/2020 05:21:00 PM EDT [facility] Outpatient Attender: TAMIE SAVAGE MD Main Office 01/04/2020 08:00:00 AM EDT [facility] ([facility]) Outpatient Attender: TAMIE SAVAGE MD Main Office 11/23/2019 01:30:00 PM EDT [facility] ([facility]) Outpatient Attender: Guy Morin MD FP 11/14/2019 04:15:01 PM EDT [facility] Outpatient Attender: TAMIE SAVAGE MD Main Office 11/13/2019 08:00:00 AM EDT [facility] ([facility]) Outpatient Attender: Guy Morin MD FP 10/27/2019 02:48:01 PM EDT [facility] Outpatient Attender: Guy LIZ 10/26/2019 09:18:00 AM EDT [facility] Outpatient Attender: Guy Morin MD FP 10/08/2019 01:43:00 PM EDT [facility] Outpatient Attender: Yuri Vilchis MDConsultant: STAFF NON 10/07/2019 10:18:27 AM EDT - 10/14/2019 02:24:00 PM EDT [facility] Patient discharged. Outpatient Attender: Guy LIZ 10/05/2019 04:34:00 PM EDT [facility] Outpatient Attender: Guy LIZ 09/29/2019 08:03:23 PM EDT [facility] Outpatient Attender: Yuri Vilchis MD Physical Therapy 06/2019 04:00:00 PM EDT [facility] ([facility]) Outpatient Attender: Guy LIZ 09/22/2019 09:53:00 AM EDT [facility] Outpatient Attender: Guy Morin MD FP 09/21/2019 04:56:02 PM EDT [facility] Outpatient Attender: Guy Morin MD 09/21/2019 04:55:00 PM EDT [facility] Outpatient Attender: Guy Morin MD 09/21/2019 01:01:00 PM EDT [facility] Outpatient Attender: TAMIE SAVAGE MD Main Office 09/17/2019 08:00:00 AM EDT [facility] ([facility]) Outpatient Attender: Guy Morin MD 09/17/2019 07:32:00 AM EDT [facility] Outpatient Attender: Guy Morin MD 09/16/2019 01:00:01 PM EDT [facility] Emergency Attender: JAYY BRENNAN MDConsultant: GIN PRESCOTT MD 09/13/2019 01:37:00 PM EDT - 09/13/2019 02:36:00 PM EDT [facility] Patient discharged. Outpatient Attender: TAMIE SAVAGE MD Main Office 07/23/2019 09:45:00 AM EDT [facility] ([facility]) Outpatient Attender: Guy Morin MD 07/15/2019 02:12:01 PM EDT [facility] Outpatient Attender: Guy Morin MD 07/15/2019 11:45:00 AM EDT [facility] Outpatient Attender: Guy Morin MD 07/15/2019 11:42:00 AM EDT [facility] Outpatient Attender: Guy Morin MD 07/15/2019 10:29:00 AM EDT [facility] Outpatient Attender: Guy Morin MD 07/15/2019 10:12:02 AM EDT [facility] Outpatient Attender: Guy Morin MD 07/15/2019 10:12:01 AM EDT [facility] Outpatient Attender: Guy Morin MD 07/15/2019 10:07:01 AM EDT [facility] Outpatient Attender: Guy Morin MD 07/15/2019 10:04:59 AM EDT [facility] Outpatient Attender: Guy Morin MD 07/15/2019 09:52:01 AM EDT [facility] Outpatient Attender: Guy Morin MD [facility] 07/15/2019 09:51:00 AM EDT [facility] Outpatient Attender: Guy Morin MD [facility] 07/15/2019 09:50:00 AM EDT [facility] Outpatient Attender: Guy Morin MD [facility] 07/15/2019 09:49:01 AM EDT [facility] Outpatient Attender: Guy Morin MD [facility] 07/15/2019 09:48:01 AM EDT [facility] Outpatient Attender: Guy Morin MD [facility] 07/15/2019 09:20:00 AM EDT [facility] Outpatient Attender: Guy Morin MD [facility] 07/15/2019 09:18:00 AM EDT [facility] Outpatient [facility] 07/15/2019 09:16:00 AM EDT [facility] Outpatient [facility] 07/14/2019 11:09:00 AM EDT [facility] Outpatient [facility] 06/25/2019 09:01:10 PM EST [facility] Outpatient [facility] 06/25/2019 11:41:01 AM EST [facility] Outpatient [facility] 06/25/2019 11:37:00 AM [facility] Outpatient 04/24/2019 10:21:00 AM [facility] Inpatient Attender: Ajay weinstein MDAttender: ADIA MCKENZIE MDAttender: MARITZA HERNANDEZ MDAdmitter: Ajay Grossman MD [id number] 08:13:00 AM [facility] - 03/11/2019 07:27:00 PM [facility] Patient discharged. Medications Medication Brand Name Start Date Product Form Dose Route Admi nistrative Instructions Pharmacy Instructions Status Indications Reaction Description Data Source(s) carvedilol 25 MG Oral Tablet Carvedilol 01/04/2020 12:00:00 AM EDT ORAL active [facility] Chlorthalidone 25 MG Oral Tablet Chlorthalidone 11/23/2019 12:00:00 A M EDT ORAL active [facility] carvedilol 25 MG Oral Tablet Carvedilol 11/23/2019 12:00:00 AM EDT ORAL completed [facility] ([facility] quetiapine 50 MG Oral Tablet [Seroquel] Seroquel 11/12/2019 12:00:0 0 AM EDT ORAL active [facility] ([facility] Doxycycline Monohydrate 100 MG Oral Capsule Doxycycline [place] hydrate 09/30/2019 12:00:00 AM EDT ORAL active M [facility] ([facility]) Acetaminophen 325 MG / Oxycodone Hydrochloride 5 MG Or al Tablet [Percocet] Percocet 09/23/2019 12:00:00 AM EDT active [facility] ([facility]) Spironolactone 25 MG Oral Tablet Spironolactone 09/17/2019 12:00:00 A M EDT ORAL completed [facility] Losartan Potassium 100 MG Oral Tablet Losartan Potassium 12:00:00 AM EDT ORAL active [facility] ([facility] carvedilol 12.5 MG Oral Tablet Carvedilol 09/17/2019 12:00:00 AM EDT ORAL completed [facility] ([facility] sacubitril 24 MG / valsartan 26 MG Oral Tablet [Entresto] En tresto 07/23/2019 12:00:00 AM EDT ORAL completed [facility] ([facility]) carvedilol 6.25 MG Oral Tablet Carvedilol 07/23/2019 12:00:00 AM EDT ORAL completed [facility] clopidogrel 75 MG Oral Tablet Clopidogrel Bisulfate 07/22/2019 1 2:00:00 AM EDT ORAL active [facility] ( [facility]) Aspirin 81 MG Delayed Release Oral Tablet Aspirin 81 2019 12:00:00 AM EDT ORAL active [facility] ( [facility]) Nitroglycerin 0.4 MG Sublingual Tablet [Nitrostat] Nitrostat 07/22/2019 12:00:00 AM EDT SUBLINGUAL active [facility] ([facility]) atorvastatin 40 MG Oral Tablet Atorvastatin Calcium 07/22/2019 1 2:00:00 AM EDT ORAL active [facility] ( [facility]) Lisinopril 5 MG Oral Tablet Lisinopril 07/22/2019 12:00:00 AM EDT ORAL completed [facility] ([facility] Levothyroxine Sodium 0.1 MG Oral Tablet [Euthyrox] Euthyrox 07/22/2019 12:00:00 AM EDT ORAL active [facility] Chantix Starting Month Ryder Chantix Starting Month Ryder 2019 12:00:00 AM EDT ORAL completed [facility] ([facility]) Insurance Providers Payer name Policy type / Coverage type Policy ID Covered green party ID Covered green party's relationship to ferguson Policy Ferguson Plan Information [facility] [id number] SP [id number] [facility] AMERICHOICE XIX -HMO [id number] 18 [id number] [facility] [place] [id number] 18 [id number] [facility] COMMUNITY PLAN MCDO [id number] SP [id number] [facility] CP DUAL COMP - RECURRING [id number] 18 [id number] Managed Care - [facility] Community Plan P [id number] S [id number] Medicaid S [id number] S [id number] Managed Care [place] P [id number] S [id number] Medicaid S [id number] S [id number] Managed Care [place] P [id number] S [id number] Medicaid S UNAVAILABLE S UNAVAILA BLE Managed Care [place] P UNAVAILABLE S UNAVAILABLE MEDICAID M [id number] S [id number] MEDICAID [id number] [employer] [id number] MEDICAID [id number] SP [id number] SELF PAY ONLY [id number] SP [id number] [facility] COMMUNITY PLAN [facility] [id number] SP [id number] [facility] MEDICAID [id number] [employer] [id number] [facility] MEDICARE [id number] [employer] [id number] [facility] [id number] [employer] [id number] [facility] SHIP [facility] [id number] SP [id number] [facility] P [id number] S [id number] SELF PAY UNAVAILABLE SP UNAVAILA BLE Problems, Conditions, and Diagnoses Code Display Name Description Problem Type Effective Dates Data Source(s) 1153627 Noncompliance with treatment Noncompliance with treatm ent Problem 11/13/2019 12:00:00 AM EDT [facility] ([facility]) [id number] Essential hypertension Essential hypertension Problem 09/24/2019 12:00:00 AM EDT [facility] ([facility] S61.203D Unspecified open wound of le ft middle finger without damage to nail, subsequent encounter Unspecified open wound of left middle fi nger without damage to nail, subsequent encounter 09/21/2019 04:54:42 PM EDT [facility] [id number] Dietary management surveillance Dietary manageme nt surveillance Problem 09/17/2019 12:00:00 AM EDT [facility] [id number] Counseling about tobacco use Counseling about tobacco use Problem 09/17/2019 12:00:00 AM EDT [facility] ([facility]) [id number] Tobacco user Tobacco user Problem 09/17/2019 12:00:00 A M EDT [facility] ([facility]) 25511287 Precordial pain Precordial pain Problem 09/17/2019 12:0 0:00 AM EDT [facility] ([facility]) 280061621 Obesity Obesity Problem 09/17/2019 12:00:00 AM ED T [facility] ([facility]) [id number] Mixed hyperlipidemia Mixed hyperlipidemia Problem 09/17/2019 12:00:00 AM EDT [facility] ([facility]) 61617780 Essential hypertension Essential hypertension Problem 09/17/2019 12:00:00 AM EDT [facility] ([facility]) [id number] Patient post percutaneous transluminal c oronary angioplasty Patient post percutaneous transluminal coronary angioplasty Problem 12:00:00 AM EDT [facility] ([facility]) 3977366 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 myocardial infarction Pr oblem 09/17/2019 12:00:00 AM EDT [facility] ([facility]) 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 Problem 09/17/2019 12:00:00 AM EDT [facility] ([facility]) [id number] Palpitations Palpitations Problem 09/17/2019 12:00:00 A M EDT [facility] ([facility]) [id number] Electrocardiogram abnormal Electrocardiogram abnormal Problem 09/17/2019 12:00:00 AM EDT [facility] ([facility]) 765793769 Chronic ischemic heart disease Chronic ischemic heart disease Problem 09/17/2019 12:00:00 AM EDT [facility] ([facility]) [id number] 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 Problem 09/17/19 12:00:00 AM EDT [facility] ([facility]) [id number] Insomnia, unspecified Insomnia, unspecified 07/15/2019 10:11:52 AM EDT [facility] 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 Darek ign lipomatous neoplasm of kidney 07/15/2019 10:11:52 AM EDT [facility] [id number] Nicotine dependence, cigarettes, uncompl icated Nicotine dependence, cigarettes, uncomplicated 07/15/2019 10:11:52 AM EDT [facility].01 Atherosclerotic heart diseas e of [place] coronary artery with other forms of angina pectoris Atherosclerotic heart disease of [place] coronary artery with other forms of angina pectoris 07/15/2019 10:11:52 AM EDT [facility] Chronic combined systolic (c ongestive) and diastolic (congestive) heart failure Chronic combined systolic (congestive) a nd diastolic (congestive) heart failure Diagnosis 03/14/2020 12:15:00 PM [facility] [id number] Laceration of extensor muscl e, fascia and tendon of left index finger at wrist and hand level, subsequent encounter Laceration of extensor muscle, fascia and tendon of left index finger at wrist and hand level, subsequent encounter Diagnosis 10/07/2019 10:25:00 AM EDT [facility] P27595 Unspecified place in unspeci fied non-institutional (private) residence as the place of occurrence of the external cause Unspecified place in unspecified non-institutional (private) residence as the place of occurrence of the external cause Diagnosis 09/13/2019 01:37:00 PM EDT [facility] [id number] Contact with other sharp obj ect(s), not elsewhere classified, initial encounter Contact with other sharp object(s), not elsewhere classified, initial encounter Diagnosis 09/13/2019 01:37:00 PM EDT [facility] Z7982 care home (current) use of aspirin parts counterman (cu rrent) use of aspirin Diagnosis 09/13/2019 01:37:00 PM EDT [facility] Z7902 parts counterman (current) use of antithromboti cs/antiplatelets care home (current) use of antithrombotics/antiplatelets Diagnosis 020 01:37:00 PM EDT [facility] I69393 Nicotine dependence, cigarettes, uncompl icated Nicotine dependence, cigarettes, uncomplicated Diagnosis 09/13/2019 01:37:00 PM EDT [facility] N42066 Cellulitis of left finger Cellulitis of left finger Di agnosis 09/13/2019 01:37:00 PM EDT [facility] [id number] Laceration without foreign b duarte of left middle finger without damage to nail, initial encounter Laceration without foreign body of left middle finger without damage to nail, initial encounter Diagnosis 09/13/2019 01:37:0 0 PM EDT [facility] [id number] Laceration without foreign b duarte of left index finger without damage to nail, initial encounter Laceration without foreign body of left index finger without damage to nail, initial encounter Diagnosis 09/13/2019 01:37:0 0 PM EDT [facility] [id number] Unspecified injury of left wrist, hand a nd finger(s), initial encounter Unspecified injury of left wrist, hand and finger(s), initial encounter Diagnosis 09/13/2019 01:37:00 PM EDT [facility] Surgeries/Procedures Procedure Description Date Indications Data Source(s) Arthrotomy Interphalangeal JT W/Explore/Drain/Remove FB 09/24/2019 12:00:00 AM EDT [facility] ([facility] REPAIR EXTENSOR TENDON FINGER W/O GRAFT EACH 0 12:00:00 AM EDT [facility] ([facility] RADEX HAND MINIMUM 3 VIEWS 09/23/2019 12:00:00 AM EDT [facility] ([facility] ECHO TTHRC R-T 2D W/WOM-MODE COMPL SPEC&COLR DOP 08/19 12:00:00 AM EDT [facility] ([facility]) XTRNL ECG < 48 HR RECORDING 08/10/2019 12:00:00 AM EDT [facility] ([facility]) XTRNL ECG CONTINUOUS RHYTHM PHYS REVIEW&INTERPJ 2019 12:00:00 AM EDT [facility] ([facility]) ECG ROUTINE ECG W/LEAST 12 LDS W/I&R 07/23/2019 12:00: 00 AM EDT [facility] ([facility]) Results ID Date Data Source [id number] 03/14/2020 12:20:00 PM EST [facility] ([facility]) Name Value Range Interpretation Code Description Data Veronica rce(s) Supporting Document(s) Sodium 142 meq/L 134-153 [facility] ([facility]) Basic Metabolic Pane Laboratory test result [facility] ([facility]) BASIC METABOLIC PANEL Potassium 5.1 meq/L 3.6-5.0 [facility] ([facility]) Chloride 105 meq/L 98-107 [facility] ([facility]) Co2 30 meq/L 22-30 [facility] ([facility]) BUN/Creat 13 8-27 [facility] ([facility]) Creatinine 1.0 mg/dL 0.7-1.5 [facility] ([facility]) BUN 13 mg/dL 7-21 [facility] ([facility]) Glucose 99 mg/dL 65-110 [facility] ([facility]) Calcium 10.3 mg/dL 8.4-10.2 [facility] ([facility]) Anion Gap 7.0 mmol/L 8.0-16.0 [facility] ([facility]) Age 49 yrs [facility] ([facility]) Non-Aa GFR Laboratory test result [facility] ([facility]) Male GFR Interprentation 20-49 yrs >60 mL/min Normal 50-59 yrs >56 mL/min Normal 60-69 yrs >49 mL/min Normal 70-79yrs >42 mL/min Normal 80 and above >35 mL/min Normal Female GFR Interpretation 20-39 yrs >60 mL/min Normal 40-49 yrs >58 mL/min Normal 50-59 yrs >51 mL/min Normal 60-69 yrs >45 mL/min Normal 70-79 yrs >39 mL/min Normal 80 and above >32 mL/min Normal Afr Amer GFR Laboratory test result [facility] NT ([facility]) ID Date Data Source [id number] 03/14/2020 12:20:00 PM EST [facility] ([facility]) Name Value Range Interpretation Code Description Data Veronica rce(s) Supporting Document(s) Natriuretic peptide.B prohormone N-Terminal [Mass/volu me] in Serum or Plasma 116 pg/mL 0-125 [facility] ([facility] ID Date Data Source [id number] 03/14/2020 01:49:00 PM EST [facility] Name Value Range Interpretation Code Description Data Veroncia rce(s) Supporting Document(s) BASIC METABOLIC PANEL [facility] BASIC METABOLIC PANEL Sodium [Moles/volume] in Serum or Plasma 142 mEq/L 134 - 153 [facility] Potassium [Moles/volume] in Serum or Plasma 5.1 mEq/L 3.6 - 5.0 H [facility] Chloride [Moles/volume] in Serum or Plasma 105 mEq/L 98 - 107 [facility] Carbon dioxide, total [Moles/volume] in Serum or Plasma 30 MEQ/L 22 - 30 [facility] Glucose [Mass/volume] in Serum or Plasma 99 MG/DL 65 - 110 [facility] BUN 13 MG/DL 7 - 21 [facility] Creatinine [Mass/volume] in Serum or Plasma 1.0 MG/DL 0.7 - 1.5 [facility] BUN/CREAT 13 8 - 27 [facility] Calcium [Mass/volume] in Serum or Plasma 10.3 MG/DL 8.4 - 10.2 H [facility] Anion gap 3 in Serum or Plasma 7.0 mmol/L 8.0 - 16.0 L [facility] AGE 49 yrs [facility] AFR AMER GFR >60 mL/min [facility] NON-AA GFR >60 mL/min [facility] ital Male GFR Inter prentation 20-49 yrs >60 mL/min Normal 50-59 yrs >56 mL/min Normal 60-69 yrs >49 mL/min Normal 70-79yrs >42 mL/min Normal 80 and above >35 mL/min Normal Female GFR Interpretation 20-39 yrs >60 mL/min Normal 40-49 yrs >58 mL/min Normal 50-59 yrs >51 mL/min Normal 60-69 yrs >45 mL/min Normal 70-79 yrs >39 mL/min Normal 80 and above >32 mL/min Normal ID Date Data Source [id number] 03/14/2020 01:42:00 PM EST [facility] Name Value Range Interpretation Code Description Data Veronica rce(s) Supporting Document(s) BNP 116 PG/ML 0 - 125 [facility] ID Date Data Source [id number] 02/03/2020 04:41:00 PM EDT [facility] Name Value Range Interpretation Code Description Data Veronica rce(s) Supporting Document(s) SARS coronavirus 2 RNA [facility] This lab was ordered by [facility] Kulwindre shane and reported by [facility]. ID Date Data Source [id number] 02/06/2020 08:08:00 AM EDT [facility] Name Value Range Interpretation Code Description Data Veronica rce(s) Supporting Document(s) SARS-CoV-2, GITA Not Detected Not Detected [facility] This nucleic acid amplification test was developed and its performancecharacteristics determined by [facility]. Nucleic acidamplification tests include PCR and TMA. This test has not been FDAcleared or approved. This test has been authorized by FDA under anEmergency Use Authorization (EUA). This test is only authorized forthe duration of time the declaration that circumstances existjustifying the authorization of the emergency use of in vitrodiagnostic tests for detection of SARS-CoV-2 virus and/or diagnosisof COVID-19 infection under section 564(b)(1) of the Act, 21 U.S.C.360bbb-3(b) (1), unless the authorization is terminated or revokedsooner.When diagnostic testing is negative, the possibility of a falsenegative result should be considered in the context of a patient'srecent exposures and the presence of clinical signs and symptomsconsistent with COVID- 19. An individual without symptoms of COVID-19and who is not shedding SARS-CoV-2 virus would expect to have anegative (not detected) result in this assay. ID Date Data Source [id number] 10/27/2019 01:19:57 PM EDT [facility] Measurements & CalculationsHeight: 70 inches (5 ft. 10 in.) 177.80 cm Weight: 236 pounds 8 oz. 107.50 kg Body Mass Index (BMI): 34.06BMI Interpretation: ObeseBody Surface Area (BSA): 2.24Weight Management Education Done (Nutrition/Physical Activity)Vital SignsTemperature: 98.1F oral Pulse Rate: 71 beats/minuteRespiratory Rate: 18 respirations/minuteBlood Pressure: 160/103 left arm sitting automaticO2 Saturation: 99% room airVital Signs performed by: Julius Moe LPN, October 27, 2019 1:27 PMInitial Intake Information From: patientRoom #: 13Infectious Disease / Travel ScreeningRecent travel for you or any close contacts? NoHave you had any close contact with anyone diagnosed with or under investigation for COVID-19 (coronavirus)? NoFever? NoRespiratory symptoms: cough, cold, congestion, shortness of breath, difficulty breathing? NoLoss of smell? NoLoss of taste? NoSmoking, Tobacco, Vaping or Smoke Exposure StatusSmoke Status: current every day smokerTobacco Use: YesAdv to Quit: YesDo you vape? NoPassive Smoke Exposure: YesHealthcare HistorySince your last office visit...Have you been admitted to the hospital? NoHave you been to an emergency room (ER) or urgent care clinic? NoHave you seen another healthcare provider? Yes - cardioHave you seen a dentist? NoIntake performed by: Julius Moe LPN, October 27, 2019 1:21 PMRate Your HealthIn general, would you say your health is? PoorPain AssessmentAre you currently having any pain which... You would like your provider to address? No Affects your activity level? NoDepression Screening - PHQ-2Over the last two weeks, have you... Had little interest or pleasure in doing things? Not at all Been feeling down, depressed, or hopeless? Not at all PHQ-2 Score: 0Anxiety Screening - VERONIQUE-2Over the last two weeks, have you been... Feeling nervous, anxious, or on edge? Not at all Unable to stop or control worrying? Not at all VERONIQUE-2 Score: 0Food InsecurityWithin the past year...Did you worry whether your food would run out before you got money to buy more? NoWas there a time when the food you bought didn't last and you didn't have money to get more? NoPatient Learning & Communication Needs Preferred learning style: visualPossible barriers: nonePatient's Language used in visit: YesLanguage: englishScreening, Brief Intervention, & Referral to Treatment (SBIRT)Pre- Screening Questions How many times have you have 5 or more drinks in a day? 0How many times have you used an illegal drug or used a prescription medication for a non-medical reason? 0Performed by: Julius Moe LPN, October 27, 2019 1:22 PMPatient History Medical History:High cholesterolHypertensionHypothyroidismObesityCongestive heart failureCoronary a rtery diseaseDeep vein thrombosis - ChronicLeg edemaMyocardial kybvqyyhdqO0Wdgrcffql of breathGERDAbdominal painInsomniaADHDAlcohol abuseSubstance abuseSurgical History:cadiac stents Q6Cakyoq History:OR - Male under age 55 (Father)High cholesterol (Father)Hypertension (Father)Cancer - Brain (Father)Social/Personal History: Advised to Quit/Tobacco Education: YesChief Complaintsleep issues/ Medication not working RM 13 History of Present Illness (HPI)49 yr old male Pt here today with complaints that he is having issues sleeping. PT also states he feels that his medication is not working. Pt denies pain at this time. Pt states he is taking all medications with no side effects. No relief of insomnia with Trazodone. Has been on Seroquel in the past with good results and no adverse effects. Does smoke and has no interest in quitting at this time. Formerly had issues with alcohol but has not had any alcohol for a long time. Drinks half a pot of coffee in the morning. No other substance use.Sees a Agricultural Equipment Sales Manager for his CAD and this has been stable for a while.HPI performed by: Guy Morin MD, October 27, 2019 2:44 PMTransitions of Care InboundProblem ReviewProblem List was reviewed and/or updated during this visit.Medication Reconciliation & ReviewMedication List was reviewed and/or updated during this visit, including review of any wzbc-xtf-okbheuk medications, herbal therapies, and/or supplements.Allergy ReviewAllergy List was reviewed and/or updated during this visit.Adult Preventive CareProvider Calculated and Reviewed all Clinical Protocols for patient today. Screening Tobacco Screening: Smoking Status: current every day smoker (10/27/2019) Tobacco Use: Currently (10/27/2019) Advised to Quit: Yes (10/27/2019)Labs/Meds/Other Counseling- Nutrition and Physical Activity:BMI Interpretation: Obese (10/27/2019) Counseling: Done (10/27/2019) Physical Activity: Done (10/27/2019)Review of Systems General: Denies dizziness, fatigue. Cardiovascular: Denies chest pain. Respiratory: Denies shortness of breath. Gastrointestinal: Denies constipation. Genitourinary: Denies burning with urination, incomplete emptying. Physical ExamGeneral Appearance: well nourished, well hydrated, no acute distressRespiratory, Auscultation: clear to auscultation bilaterally; no rales, rhonchi, or wheezesRespiratory, Effort: no intercostal retractions or use of accessory musclesCardiovascular, Auscultation: S1, S2 audible; no murmur, rub, or gallop; RRRGait & Station: normalSkin, Inspection: no rashes, lesions, or ulcerationsOrientation: oriented to time, place, and personMood & Affect: no depression, anxiety, or agitationJudgment & Insight: intactCare Management Plan Transitions of CareInboundRate Your HealthIn general, would you say your health is? PoorAssessment & Plan Problems:Assessed:Insomnia, unspecified (SAL70-G89.00) Assessment: Instructions: No response to Trazodone.Will switch to Seroquel 50 mg. Has been on this in the past with good success and no side effects.(He does have heart disease but this seems to be well compensated. He is aware of the risk of sedation and respiratory depression and will let us know if he does get dizziness or drowsiness with this.)Patient Instructions/Care Plan: Insomnia- unspecified: No response to Trazodone.Will switch to Seroquel 50 mg. Has been on this in the past with good success and no side effects.(He does have heart disease but this seems to be well compensated. He is aware of the risk of sedation and respiratory depression and will let us know if he does get dizziness or drowsiness with this.) Plan developed in collaboration with patient and/or familyMedications:SEROQUEL 50 MG ORAL TABLETCEPHALEXIN 500 MG ORAL CAPSULECLINDAMYCIN HCL 300 MG ORAL CAPSULELEVOTHYROXINE SODIUM 100 MCG INTRAVENOUS SOLUTION RECONSTITUTEDCARVEDILOL 12.5 MG ORAL TABLETDIPHENHYDRAMINE HCL 50 MG ORAL CAPSULENITROGLYCERIN 0.4 MG SUBLINGUAL TABLET SUBLINGUALCHANTIX STARTING MONTH RYDER 0.5 MG X 11 & 1 MG X 42 ORAL TABLETCVS MELATONIN 10 MG ORAL CAPSULEATORVASTATIN CALCIUM 40 MG ORAL TABLETEUTHYROX 100 MCG ORAL TABLETLISINOPRIL 5 MG ORAL TABLETASPIRIN 81 MG ORAL TABLET CHEWABLECLOPIDOGREL BISULFATE 75 MG ORAL TABLETMedication Changes:New Prescription:SEROQUEL 50 MG ORAL TABLET-One po qd. Qty: 30[Tablet] Refills: 5 Method: ElectronicRemoved:TRAZODONE HCL 50 MG ORAL TABLET-One tablet by mouth every day Qty: 30[Tablet] Refills: 2Allergies:No Known Allergies (updated 07/15/2019) Orders:Adult - Ofc Vst, EST, Level III [CPT-46471] Name Value Range Interpretation Code Description Data Veronica rce(s) Supporting Document(s) ID Date Data Source [id number] 09/24/2019 03:56:00 PM EDT [facility] ([facility] ) Name Value Range Interpretation Code Description Data Veronica rce(s) Supporting Document(s) Bacteria identified in Unspecified specimen by Anaerob e culture Laboratory test result [facility] ([facility] ) If anaerobic or aerobic growth is detected within the next 7-21 days, an addendum will follow. . . FULL REPORT IN LAB NOTES ([facility] and [facility]). NO GROWTH ANAEROBICALLY ID Date Data Source [id number] 09/24/2019 03:56:00 PM EDT [facility] ([facility]) Name Value Range Interpretation Code Description Data Veronica rce(s) Supporting Document(s) Gram Stain Laboratory test result [facility] ([facility]) FEW WBCS NO ORGANISMS SEEN Wound Culture Laboratory test result [facility] ([facility]) <content>FULL REPORT IN LAB NOTES ([facility] a nd [facility]).</content>
<content></content>
<content>ORGANISM 1: STAPHYLOCOCCUS SP COAG NEG</content>
<content></content>
<content> QUANTITY OF GROWTH FEW</content>
<content></content>
<content></content>
<content>ORGAN ISM 1: STAPHYLOCOCCUS SP COAG NEG</content>
<content></content>
<content>STAPHYLOCOCCUS SP COAG NEG: REACTION</content>
<content>ICR (INDUCIBLE CC RESISTANCE) IV ICR TEST RESULT</content>
<content>TETRACYCLINE PO 250 mg qid <=1 S</content>
<content>PENICILLIN G IV 1 mu q6H >=0.5 R</content>
<content>PENICILLIN G IV 1 mu q6h >=0.5 R</content>
<content>PENICILLIN G PO 250mg q6h fasting >=0.5 R</content>
<content> TRIMETHOPRIM/SULFAMETHOXAZOLE IV 160mg TMP & 800mg SMXq6h <=10 S</content>
<content>TRIMETHOPRIM/SULFAMETHOXAZOLE PO Bactrim DS Bid <=10 S</content>
<content>ERYTHROMYCIN IV 500mg q6h >=8 R</content>
<content>ERYTHROMYCIN PO 500mg q6h >=8 R</content>
<content>GENTAMICIN IV 80mg q8h <=0.5 S</content>
<content>CLINDAMYCIN IV 600mg q6h >=4 R</content>
<content>CLINDAMYCIN PO 150mg q6h >=4 R</content>
<content>OXACILLIN IV 500mg q6h >=4 R</content>
<content>VANCOMYCIN IV 500mg q8h 1 S</content>
<content>LINEZOLID (ZYVOX) IV 600MG Q12HR 1 S</content>
<content>LINEZOLID (ZYVOX) PO 600MG Q12HR 1 S</content>
<content>An isolate with a (+) POSITIVE ICR test is considered</content>
<content>CLINDAMYCIN RESISTANT; however, clindamycin may still</content>
<content>be effective in some patients.</content>
<content>An isolate with a (-) NEGATIVE ICR test is considered</content>
<content>CLIDAMYCIN SENSITIVE.</content>
<content></content> ID Date Data Source [id number] 09/24/2019 03:42:00 PM EDT [facility] ([facility]) Name Value Range Interpretation Code Description Data [facility](s) Supporting Document(s) Surgical pathology study Laboratory test result [facility] ([facility]) FINAL DIAGNOSIS Submitted as "index finger, left, deep tissue": Acute inflammation with tissue necrosis. Negative for malignancy. 09/28/2019 - 1027 CLINICAL DIAGNOSIS Left index finger injury, tendon tear and infection 09/25/20191422 GROSS DIAGNOSIS Received in formalin labeled "index finger, left, deep tissue" consists of a fragment of tissue, 1 x 0.5 x 0.3 cm. All in one. -OA 09/25/20191422 Signed EVGENY BROWN MD 09/28/2019 1029 ID Date Data Source [id number] 09/24/2019 09:00:00 AM EDT [facility] ([facility]) Name Value Range Interpretation Code Description Data Veronica rce(s) Supporting Document(s) Laboratory test finding (navigational concept) Laboratory test result [facility] ([facility]) A false negative result may occur if a s pecimen is improperly collected, transported or handled. False negative results may also occur if inadequate numbers of organisms are present in the specimen. As with any molecular test, mutations within the target regions of Xpert Xpress SARS-CoV-2 could affect primer and/or probe binding resulting in failure to detect the presence of virus. This test cannot rule out diseases caused by other bacterial or viral pathogens. DISCLAIMER: Testing was performed using the [employer] SARS-CoV-2 test. This test was developed and its performance characteristics determined by [employer]. This test has not been FDA cleared or approved. This test has been authorized by FDA under an Emergency Use Authorization (EUA). This test is only authorized for the duration of time the declaration that circumstances exist justifying the authorization of the emergency use of in vitro diagnostic tests for detection of SARS-CoV-2 virus and/or diagnosis of COVID-19 infection under section 564(b)(1) of the Act, 21 U.S.C. 360bbb-3(b)(1), unless the authorization is terminated or revoked sooner. ID Date Data Source [id number] 09/24/2019 08:54:00 AM EDT [facility] ([facility]) Name Value Range Interpretation Code Description Data Veronica rce(s) Supporting Document(s) Laboratory test finding (navigational concept) Laboratory test result [facility] ([facility]) ID Date Data Source [id number] 09/21/2019 01:29:45 PM EDT [facility] Measurements & CalculationsHeight: 70 inches (5 ft. 10 in.) 177.80 cm Weight: 228 pounds 103.64 kg Body Mass Index (BMI): 32.83BMI Interpretation: ObeseBody Surface Area (BSA): 2.21Weight Management Education Done (Nutrition/Physical Activity)Vital SignsTemperature: 97.9FPulse Rate: 75 beats/minuteRespiratory Rate: 18 respirations/minuteBlood Pressure: 141/95 O2 Saturation: 98% Vital Signs performed by: Dea Ellison MA, September 21, 2019 1:38 PMInitial Intake Information From: patientRoom #: 15Infectious Disease / Travel ScreeningRecent travel for you or any close contacts? NoHave you had any close contact with anyone diagnosed with or under investigation for COVID-19 (coronavirus)? NoFever? NoRespiratory symptoms: cough, cold, congestion, shortness of breath, difficulty breathing? NoLoss of smell? NoLoss of taste? NoSmoking, Tobacco, Vaping or Smoke Exposure StatusSmoke Status: current every day smokerTobacco Use: YesAdv to Quit: YesDo you vape? NoPassive Smoke Exposure: YesHealthcare HistorySince your last office visit...Have you been admitted to the hospital? NoHave you been to an emergency room (ER) or urgent care clinic? Yes - CAH finger injury Have you seen another healthcare provider? Yes - cardioHave you seen a dentist? NoIntake performed by: Dea Ellison MA, September 21, 2019 1:31 PMRate Your HealthIn general, would you say your health is? FairPain AssessmentAre you currently having any pain which... You would like your provider to address? No Affects your activity level? NoDepression Screening - PHQ-2Over the last two weeks, have you... Had little interest or pleasure in doing things? Not at all Been feeling down, depressed, or hopeless? Not at all PHQ-2 Score: 0Anxiety Screening - VERONIQUE-2Over the last two weeks, have you been... Feeling nervous, anxious, or on edge? Not at all Unable to stop or control worrying? Not at all VERONIQUE-2 Score: 0Screening, Brief Intervention, & Referral to Treatment (SBIRT)Pre-Screening Questions How many times have you have 5 or more drinks in a day? 0How many times have you used an illegal drug or used a prescription medication for a non-medical reason? 300Performed by: Dea Ellison MA, September 21, 2019 1:32 PMPatient History Medical History:High cholesterolHypertensionHypothyroidismObesityCongestive heart failureCoronary artery diseaseDeep vein thrombosis - ChronicLeg edemaMyocardial vfzqxutzjqA1Qpfrvsotk of breathGERDAbdominal painInsomniaADHDAlcohol abuseSubstance abuseSurgical History:cadiac stents F3Nuhglq History:OR - Male under age 55 (Father)High cholesterol (Father)Hypertension (Father)Cancer - Brain (Father)Social/Personal History: Advised to Quit/Tobacco Education: YesChief Complainter f/u left finger injury History of Present Illness (HPI)Deep lacerations to left third finger. Seen 2 days after injury in the ER a week ago and put on clindamycin after being given Rocephin. Still having some redness and swelling but much better. No drainage. No fever and no chills. Was offered X rays but decided not to stay and have them.HPI performed by: Guy Morin MD, September 21, 2019 1:41 PMTransitions of Care InboundProblem ReviewProblem List was reviewed and/or updated during this visit.Medication Reconciliation & ReviewMedication List was reviewed and/or updated during this visit, including review of any smhd-aqv-mlodwyh medications, herbal therapies, and/or supplements.Allergy ReviewAllergy List was reviewed and/or updated during this visit.Adult Preventive CareProvider Calculated and Reviewed all Clinical Protocols for patient today. Screening Tobacco Screening: Smoking Status: current every day smoker (09/21/2019) Tobacco Use: Currently (09/21/2019) Advised to Quit: Yes (09/21/2019)Labs/Meds/Other Counseling-Nut rition and Physical Activity:BMI Interpretation: Obese (09/21/2019) Counseling: Done (09/21/2019) Physical Activity: Done (09/21/2019)Cancer Screening Colorectal Screening: Patient refused colorectal screeningReview of Systems General: Denies dizziness, fatigue. Cardiovascular: Denies chest pain. Respiratory: Denies shortness of breath. Gastrointestinal: Denies diarrhea, constipation. Genitourinary: Denies pain with urination. Physical ExamGeneral Appearance: well nourished, well hydrated, no acute distressRespiratory, Auscultation: clear to auscultation bilaterally; no rales, rhonchi, or wh eezesRespiratory, Effort: no intercostal retractions or use of accessory musclesCardiovascular, Auscultation: S1, S2 audible; no murmur, rub, or gallop; RRRSkin, Inspection: Redness and swelling of left third finger. Decreasd ROM due to this. Strength grossly intact.Orientation: oriented to time, place, and personJudgment & Insight: intactCare Management Plan Transitions of CareInboundRate Your HealthIn general, would you say your health is? FairAssessment & Plan Problems:Added: Unspecified open wound of left middle finger without damage to nail, subsequent encounter ([id number]) Asses sment: Instructions: Slow to heal.No sign of active infection.Refer to Ortho.Patient Instructions/Care Plan: Unspecified open wound of left middle finger without damage to nail- subsequent encounter: Slow to heal.No sign of active infection.Refer to Ortho. Plan developed in collaboration with patient and/or familyMedications:CEPHALEXIN 500 MG ORAL CAPSULECLINDAMYCIN HCL 300 MG ORAL CAPSULELEVOTHYROXINE SODIUM 100 MCG INTRAVENOUS SOLUTION RECONSTITUTEDCARVEDILOL 12.5 MG ORAL TABLETDIPHENHYDRAMINE HCL 50 MG ORAL CAPSULENITROGLYCERIN 0.4 MG SUBLINGUAL TABLET SUBLINGUALCHANTIX STARTING MONTH RYDER 0.5 MG X 11 & 1 MG X 42 ORAL TABLETCVS MELATONIN 10 MG ORAL CAPSULEATORVASTATIN CALCIUM 40 MG ORAL TABLETEUTHYROX 100 MCG ORAL TABLETLISINOPRIL 5 MG ORAL TABLETASPIRIN 81 MG ORAL TABLET CHEWABLECLOPIDOGREL BISULFATE 75 MG ORAL TABLETMedication Changes:Added: CARVEDILOL 12.5 MG ORAL TABLET-one tab bidLEVOTHYROXINE SODIUM 100 MCG INTRAVENOUS SOLUTION RECONSTITUTED-one tab dailyCLINDAMYCIN HCL 300 MG ORAL CAPSULE-one cap by mouth four times a dayCEPHALEXIN 500 MG ORAL CAPSULE-one tab three times a dayAllergies:No Known Allergies (updated 07/15/2019) Orders:Adult - Ofc Vst, EST, Level III [CPT-17036] Orthopaedics Consult [CPT-30165] Name Value Range Interpretation Code Description Data Veronica rce(s) Supporting Document(s) ID Date Data Source [id number] 09/17/2019 11:38:00 AM EDT [facility] ([facility]) Name Value Range Interpretation Code Description Data Veronica rce(s) Supporting Document(s) Laboratory test finding (navigational concept) Laboratory test result [facility] ([facility]) ID Date Data Source [id number] 09/17/2019 11:38:00 AM EDT [facility] ([facility]) Name Value Range Interpretation Code Description Data Veronica rce(s) Supporting Document(s) Bilirubin.direct [Mass/volume] in Serum or Plasma 0.08 mg/dL 0.00-0.4 0 [facility] ([facility]) Bilirubin.total [Mass/volume] in Serum or Plasma Laboratory test result 0.0-1.2 [facility] ([facility]) Bilirubin.indirect [Mass/volume] in Serum or Plasma Laborato ry test result 0.10-0.80 [facility] ([facility]) ID Date Data Source [id number] 09/17/2019 11:38:00 AM EDT [facility] ([facility]) Name Value Range Interpretation Code Description Data Veronica rce(s) Supporting Document(s) Glucose 109 mg/dL 65-99 [facility] ([facility]) eGFR If NonAfricn Am 73 mL/min/1.73 [facility] ([facility]) Creatinine 1.16 mg/dL 0.76-1.27 [facility] ([facility]) Urea nitrogen [Mass/volume] in Serum or Plasma 21 mg/dL 6-24 [facility] ([facility]) eGFR If Africn Am 84 mL/min/1.73 [facility] ([facility]) Urea nitrogen/Creatinine [Mass Ratio] in Serum or Plasma 18 9 -20 [facility] ([facility]) Sodium 140 mmol/L 134-144 [facility] ([facility]) Carbon dioxide, total [Moles/volume] in Serum or Plasma 20 mmol/L 20 -29 [facility] ([facility]) Potassium [Moles/volume] in Serum or Plasma 5.2 mmol/L 3.5-5.2 [facility] ([facility]) Chloride [Moles/volume] in Serum or Plasma 105 mmol/L 96-106 [facility] ([facility]) Calcium [Mass/volume] in Serum or Plasma 9.8 mg/dL 8.7-10.2 [facility] ([facility]) Albumin [Mass/volume] in Serum or Plasma 4.5 g/dL 3.8-4.9 [facility] ([facility]) Phosphate [Moles/volume] in Serum or Plasma 3.5 mg/dL 2.8-4.1 [facility] ([facility]) ID Date Data Source [id number] 09/17/2019 11:38:00 AM EDT [facility] ([facility]) Name Value Range Interpretation Code Description Data Veronica rce(s) Supporting Document(s) Natriuretic peptide.B prohormone N-Terminal [Mass/volu me] in Serum or Plasma 153 pg/mL 0-121 [facility] ([facility]) <content>The following cut-points have b een suggested for the</content>
<content>use of proBNP for the diagnostic evaluation of heart</content>
<content>failure (HF) in patients with acute dy spnea:</content>
<content>Modality Age Optimal Cut</content>
<content>(years) Point</content>
<content> ---</content>
<content>Diagnosis (rule in HF) <50 450 pg/mL</content>
<content>50 - 75 900 pg/mL</content>
<content>>75 1800 pg/mL</content>
<content> Exclusion (rule out HF) Age independent 300 pg/mL</content>
<content></content> ID Date Data Source [id number] 09/18/2019 08:06:00 AM EDT [facility] Name Value Range Interpretation Code Description Data Veronica rce(s) Supporting Document(s) Glucose 109 mg/dL 65-99 Above high normal [facility] BUN 21 mg/dL 6-24 [facility] Creatinine 1.16 mg/dL 0.76-1.27 [facility] eGFR If NonAfricn Am 73 mL/min/1.73 >59 [facility] eGFR If Africn Am 84 mL/min/1.73 >59 [facility] BUN/Creatinine Ratio 18 9-20 [facility] Sodium 140 mmol/L 134-144 [facility] Potassium 5.2 mmol/L 3.5-5.2 [facility] Chloride 105 mmol/L 96-106 [facility] Carbon Dioxide, Total 20 mmol/L 20-29 [facility] Calcium 9.8 mg/dL 8.7-10.2 [facility] Phosphorus 3.5 mg/dL 2.8-4.1 [facility] Albumin 4.5 g/dL 3.8-4.9 [facility] ID Date Data Source [id number] 09/19/2019 06:05:00 AM EDT [facility] Name Value Range Interpretation Code Description Data Veronica rce(s) Supporting Document(s) NT-proBNP 153 pg/mL 0-121 Above high normal [facility] The following cut-points have been suggested for the use of proBNP for the diagnostic evaluation of heart failure (HF) in patients with acute dyspnea: Modality Age Optimal Cut (years) Point Diagnosis (rule in HF) <50 450 pg/mL 50 - 75 900 pg/mL > 75 1800 pg/mL Exclusion (rule out HF) Age independent 300 pg/mL ID Date Data Source [id number] 09/18/2019 08:06:00 AM EDT [facility] Name Value Range Interpretation Code Description Data Veronica rce(s) Supporting Document(s) Bilirubin, Total 0.0-1.2 [facility] Bilirubin, Direct 0.08 mg/dL 0.00-0.40 [facility] Bilirubin, Indirect 0.10-0.80 [facility] ID Date Data Source [id number] 09/13/2019 01:37:00 PM EDT [facility] 1 OrderSheet [facility] Emergency Department [address] [place] [address] Phone #: ext- [phone] 09/13/2019 13:33 Patient: WEN BERG Sex: M : 1970 Age: 49yWEIGHT:108.8 kg HEIGHT:70 inches BMI:34.4ALLERGIES: NoneCHIEF COMPLAINT: Lt, middle finger, Lt, index fingerDIAGNOSIS: Laceration - InjuryLAB ORDERSOrder Description Priority Entered Acknowledged InitialedDIAGNOSTIC STUDY ORDERSOrder Description Priority Entered Acknowledged InitialedMEDICATION/IV/DRIP/FLUID ORDERSOrder Description Priority Entered Acknowledged InitialedRocephin IM 1000 13:57 09/13/2019 14:15 Maribell Tejada RN PA;Clindamycin PO 13:57 09/13/2019 14:15 Alan mg Estrada Tejada RN PA;GENERAL ORDERSOrder Description Priority Entered Acknowledged Initialed[Electronically signed by Yolis Benton R.N. (14:42 09/13/2019)][Electronically signed by Estrada Dacosta (21:24 09/13/2019)][Electronically locked by Yolis Benton R.N. (14:42 09/13/2019)] Name Value Range Interpretation Code Description Data Veronica rce(s) Supporting Document(s) ID Date Data Source [id number] 09/13/2019 01:37:00 PM EDT [facility] 1 Medication Reconciliation Report [facility] Emergency Department [address] [place] [address] Phone #: ext- [phone] 09/13/2019 13:33 Patient: WEN BERG Sex: M : 1970 Age: 49yWeight: 108.8 kgHeight/Length: 70 in.BMI: 34.4ALLERGIES: NoneThe patient's Home Medications are listed below:CONTINUE TAKING THE FOLLOWING MEDICATIONS: Aspirin Oral 81 mg Atorvastatin Calcium Oral 40 mg, daily Carvedilol Phosphate ER Oral 6.25, 2x a day Chantix Starting Month Oral Clopidogrel Bisulfate Oral 75 mg, daily Intresto [facility] Levothyroxine Sodium Oral 100 mcg Lisinopril Oral 5 mg, daily, unknown dose Melatonin 10mg Nitro 0.4mg SLThe source(s) of the original Home Medication information:patientThe following Medications were given to the patient in the Emergency Department:Clindamycin [PO] PO 300 mg, administered: 09/13/2019 2:15:00 PM 2 Medication Reconciliation Report [facility] Emergency Department [address] [place] [address] Phone #: ext- [phone] 09/13/2019 13:33 Patient: WEN BERG Sex: M : 1970 Age: 49yRocephin [IM] IM 1 gm, administered: 09/13/2019 2:15:00 PMThe following Medications were prescribed to the patient:clindamycin HCl 300 mg capsule Take 1 capsule four times a day for 10 days -- Dispense 40 capsule.Refills: 0. Substitution permitted.[id number] - [address] [place], [place] [phone]. .Keflex 500 mg capsule Take 1 capsule three times a day as directed for 10 days -- Dispense 30capsule. Refills: 0. Substitution permitted.[id number] - [address] [place], [place] [phone]. . -- ANGEL Esparza Name Value Range Interpretation Code Description Data Veronica rce(s) Supporting Document(s) ID Date Data Source [id number] 09/13/2019 01:37:00 PM EDT [facility] 1 Medication Administration Record [facility] Emergency Department [address] [place] [address] Phone #: ext- [phone] 09/13/2019 13:33 Patient: WEN BERG Sex: M : 1970 Age: 49yWeight: 108.8 kgHeight/Length: 70 inBMI: 34.4ALLERGIES: None Date/Time Medication Administered Medication OrderedGiven ROCEPHIN [IM] (CEFTRIAXONE Rocephin IM 1000 mg14:15 09/13/2019 SODIUM)Alexsander Tejada RN Dose: 1 gm IMGiven CLINDAMYCIN [PO] Clindamycin PO 300 mg14:15 09/13/2019 Dose: 300 mg Capsules Elías Tejada RN Name Value Range Interpretation Code Description Data Veronica rce(s) Supporting Document(s) ID Date Data Source [id number] 09/13/2019 01:37:00 PM EDT [facility] 1 General Instructions [facility] Emergency Department [address] [place] [address] Phone #: ext- [phone] 09/13/2019 13:33 Patient: WEN BERG Sex: M : 1970 Age: 49yMultiple deep lacerations to the left index finger and left middle finger. Delayed evaluation. Cellulitispresent. No foreign body present or left fingernail injury.INSTRUCTIONSWarnings: COMPLICATIONS: Complications from this condition include: possible infection and possibleinjury to a tendon. Future problems may include infection, loss of function and pain.INFECTION: Watch for signs of infection (increasing heat and redness, pus- like drainage, swelling, orincreased pain). Return or see your doctor if these signs occur.GENERAL WARNINGS: Return or contact your physician immediately if your condition worsens orchanges unexpectedly, if not improving as expected, or if other problems arise. Specifically return if pain orfever worsens.Your Current Medications: Your current home medications have been reviewed.CONTINUE TAKING THE FOLLOWING MEDICATIONS:Aspirin Oral : 81 mg.Atorvastatin Calcium Oral : 40 mg daily.Carvedilol Phosphate ER Oral : 6.25 2x a day.Chantix Starting Month Ryder Oral.Clopidogrel Bisulfate Oral : 75 mg daily.Intresto *.[facility]*.Levothyroxine Sodium Oral : 100 mcg.Lisinopril Oral : 5 mg daily, unknown dose.Melatonin 10mg*.Nitro 0.4mg SL*.Prescription Medications:clindamycin HCl 300 mg capsule Take 1 capsule four times a day for 10 days -- Dispense 40 capsule.Refills: 0. Substitution permitted.[id number] - [address] [place], [place] [phone]. .Keflex 500 mg capsule Take 1 capsule three times a day as directed for 10 days -- Dispense 30capsule. Refills: 0. Substitution permitted.[facility] - [address] [place], [place] [phone]. . 2 General Instructions [facility] Emergency Department [address] [place] [address] Phone #: ext- [phone] 09/13/2019 13:33 Patient: WEN BERG [facility]#: [id number] Sex: M : 1970 Age: 49yFollow-up:Follow up with doctor Here in the ED tomorrow. Reason for referral: evaluation and treatment. Summary ofcare provided to patient.Understanding of the discharge instructions verbalized by patient. ADDITIONAL INFORMATIONOld Laceration: Not SuturedA laceration is a cut through the skin. This will usually require stitches if it is deep. However, if alaceration remains open for too long, the risk of infection increases. In your case, too much time haspassed before coming for treatment. The danger of infection from stitching at this time is too high.That is why your wound was not stitched.If the wound is spread open, it will heal by filling in from the bottom and sides. A wound that is notstitched may take 1 to 4 weeks to heal, depending on the size of the opening. You will probably havea visible scar. You can discuss revision of the scar with your healthcare provider at a later time.Home careThe following guidelines will help you care for your laceration at home: Keep the wound clean and dry. If a bandage was applied and it becomes wet or dirty, replace it. Otherwise, leave it in place for the first 24 hours, then change it once a day or as directed. The healthcare provider may prescribe an antibiotic cream or ointment to prevent infection. If you are at high risk for infection, or the wound is very dirty, your provider may prescribe an oral antibiotic medicine to prevent infection. Don't stop using this medicine until you have finished it all, or the provider tells you to stop. The healthcare provider may also prescribe medicine for pain. Follow i nstructions for taking these medicines.Clean the wound daily: After removing any bandage, wash the area with soap and water. Use a wet cotton swab to loosen and remove any blood or crust that forms. Talk with your healthcare provider before applying any antibiotic ointment to the wound. Reapply a fresh bandage. You may remove the bandage to shower as usual after the first 24 hours, but don't soak the area in water. This means no tub baths or swimming until the wound heals or your provider 3 General Instructions [facility] Emergency Department [address] [place] [address] Phone #: ext- [phone] 09/13/2019 13:33 [id number] Sex: M : 1970 Age: 49y tells you it's OK. Don't do activities that may reinjure your wound. Check the wound daily for signs of infection listed below.Follow-up careFollow up with your healthcare provider, or as advised.When to seek medical adviceCall your healthcare provider right away if any of these occur: Wound bleeding not controlled by direct pressure Signs of infection, including increasing pain in the wound, increasing wound redness or swelling, or pus or bad odor coming from the wound Fever of 100.4F (38.C) or higher, or as directed by your healthcare provider Wound edges reopen Wound changes colors Numbness around the wound Decreased movement around the injured area [id number] [employer]. [address] [place] [address]. All rights reserved. This information is not intended as asubstitute for professional medical care. Always follow your healthcare professional's instructions. You have been given the following additional information: Laceration, Old: Not Sutured(Electronically signed by ANGEL Esparza 09/13/2019 21:24) Name Value Range Interpretation Code Description Data Veronica rce(s) Supporting Document(s) ID Date Data Source [id number] 09/13/2019 01:37:00 PM EDT [facility] 1 Clinical Report - Nurses [facility] Emergency Department [address] [place] [address] Phone #: ext- [phone] 09/13/2019 13:33 [id number] Sex: M : 1970 Age: 49yTRIAGEArrived by private vehicle. Historian: patient.Triage time: 13:36 09/13/2019. Acuity: LEVEL 3.Chief Complaint: LEFT UPPER EXTREMITY PAIN, SWELLING and REDNESS.Alert.Injury occurred. Onset. (put cut himself two days ago on an AC fan). ( pt reports he taped his first twofingers up on left hand. pt woke today with hand swollen and red.Pt reports he tried to open the woundagain and soak it because of the swelling but he was unable to. pt reports significant bleeding at the time ofinjury and that it was a deep wound. pt denies DM. Pt has some yellow colored drainage around the site. Ptis now unable to bend his fingers due to swelling.). The patient has had swelling and redness. No feveror numbness.Treatment PROJECT LEAD:None. --13:43 09/13/19 Yolis Benton R.N.13:36 09/13/19. BP: 165/106. HR: 97. RR: 20. O2 saturation: 99%. Temp: 98.9 F. Pain level now 05/01.--13:43 09/13/19 Yolis Benton R.N.Weight: 108.8 kg. Height/Length: 70 inches. BMI: 34.4. --13:36 09/13/19 Yolis Benton R.N.MedicationsAspirin Oral 81 mg. --13:40 09/13/19 Yolis Benton R.N. Levothyroxine Sodium Oral 100 mcg. --13:40 09/13/19 Yolis Benton R.N. Lisinopril Oral 5 mg, daily (unknown dose). --13:40 09/13/19 Yolis Benton R.N. [facility]. --13:41 09/13/19 Yolis Benton R.N. Carvedilol Phosphate ER Oral 6.25, 2x a day. --13:51 09/13/19 Yolis Benton R.N. Atorvastatin Calcium Oral 40 mg, daily. --13:51 09/13/19 Yolis Benton R.N. Clopidogrel Bisulfate Oral 75 mg, daily. --13:52 09/13/19 Yolis Benton R.N. Intresto . --13:53 09/13/19 Yolis Benton R.N. Melatonin 10mg. --13:54 09/13/19 Yolis Benton R.N. Chantix Starting Month Ryder Oral. --13:54 09/13/19 Yolis Benton R.N. Nitro 0.4mg SL. --13:54 09/13/19 Yolis Benton R.N.The following entry was struck and corrected by Yolis Benton R.N., 13:50 (09/13/19) Reason forcorrection - other(correction). Lisinopril Oral (unknown dose). --13:40 09/13/19 Yolis Benton R.N. .AllergiesNone. --13:39 09/13/19 Yolis Benton R.N. 2 Clinical Report - Nurses [facility] Emergency Department [address] [place] [address] Phone #: ext- [phone] 09/13/2019 13:33 Patient: WEN BERG [facility]#: [id number] Sex: M : 1970 Age: 49y Medication/allergy information source: the patient. --13:43 09/13/19 Yolis Benton R.N. History PAST MEDICAL HX: Tetanus status: up-to-date. Last tetanus: (2 years ago). SOCIAL HX: Current every day smoker. Alcohol use. No drug use. The patient was offered HIV testing but declined and hepatitis C testing but declined. The patient has not traveled outside the [place] Infectious disease exposure: No infectious disease exposure. SELF HARM ASSESSMENT: Self harm assessment was performed. The patient answered "no" to the question(s) "Have you recently felt down, depressed, or hopeless?", "Do you have thoughts of harming or killing yourself?", "Do you have a plan for harming or killing yourself?", "Have you recently had thoughts about harming or killing others?", "Do you have any dangerous items in your possession?", "Have you noticed less interest or pleasure in doing things?", "Are you here because you tried to hurt yourself?" and "Have you ever tried to hurt yourself before today?". ABUSE ASSESSMENT: Abuse assessment. No suspicion of abuse. No report of abuse. NUTRITIONAL RISK ASSESSMENT: The nutritional risk assessment revealed no deficiencies. FUNCTIONAL ASSESSMENT: Functional assessment: no impairments noted. LEARNING NEEDS ASSESSMENT: The learning needs assessment revealed no barriers. FALL RISK ASSESSMENT: Fall risk assessment completed per protocol. SKIN INTEGRITY ASSESSMENT: Skin integrity risk assessment completed. No skin integrity risk identified. --13:43 09/13/19 Yolis Benton R.N.PHYSICAL ASSESSMENTAmbulatory to room.GENERAL / NEURO / PSYCH: Oriented X 4. Alert. Appears in pain and in distress.EXTREMITIES: Purulent drainage on the extremities (left hand first 2 fingers). Non-pitting edema of theleft upper extremity involving the hand. Neuro-vascular status intact to the extremity. Left index finger:swelling, erythema and 2.5 cm laceration with controlled bleeding (with drainage). Left middle finger:tenderness and 2.0 cm laceration with controlled bleeding (healing stages).SKIN: Skin intact. Skin is warm and dry. --13:48 09/13/19 Alexsander Tejada RN.NURSING PROGRESS NOTESThe plan of care for this patient has been created. Reassurance given. Call light placed in reach. Bedplaced in lowest position. Brakes of bed on. Patient ready for evaluation. --13:43 09/13/19 Yolis Benton R.N. 13:44 09/13/19. BP: 165/92. --13:44 09/13/19 Yolis Benton R.N. 3 Clinical Report - Nurses [facility] Emergency Department [address] [place] [address] Phone #: ext- [phone] 09/13/2019 13:33 Patient: WEN BERG Sex: M : 1970 Age: 49y Extremity elevated. Reassurance given. Call light placed in reach. Bed placed in lowest position. Brakes of bed on. Patient ready for evaluation- ED physician and PA notified. --13:48 09/13/19 Alexsander Tejada RN Wound cleansed with hydrogen peroxide (soaking hand). --14:06 09/13/19 Alexsander Tejada RN 14:15 09/13/2019 Cli ndamycin PO Capsules 300 mg given. Allergies verified and confirmed 5 rights. Information reviewed with patient including reason for taking this medication. Verbalizes understanding. --14:15 09/13/19 Alexsander Tejada RN 14:15 09/13/2019 Rocephin (cefTRIAXone Sodium) IM 1 gm given. Given in the right deltoid. Allergies verified and confirmed 5 rights. Information reviewed with patient including reason for taking this medication. Verbalizes understanding. --14:15 09/13/19 Alexsander Tejada RN Right hand: applied dressing consisting of Band-Aid. --14:37 09/13/19 Yolis Benton R.N.DISPOSITION / DISCHARGE Departure time: 14:35 09/13/2019. Condition at departure: stable. No learning barriers present. Discharge instructions provided and reviewed with the patient. Reviewed medication(s) side effects information. Prescription(s) sent electronically to pharmacy. Treatments reviewed. Follow up contact number. Patient verbalized understanding. Written instructions provided in Spanish. The patient was discharged by the physician painter assistant. He was discharged home and unaccompanied at time of discharge. He left ambulatory and via private vehicle. Patient driving. Medication list reviewed and validated. --14:40 09/13/19 Yolis Benton R.N. 14:39 09/13/19. BP: 160/78. MAP: 105. HR: 90. RR: 20. O2 saturation: 9%. Temp: 97.8 F. Pain level now: 05/01. --14:40 09/13/19 Yolis Benton R.N. Correction. --14:41 09/13/19 Yolis Benton R.N. 14:41 09/13/19. BP: 160/78. HR: 90. RR: 20. O2 saturation: 98%. Temp: 97.8 F. Pain level now 05/01. --14:41 09/13/19 Yolis Benton R.N.Locked/Released at 09/13/2019 14:42 by Yolis Benton R.N. Name Value Range Interpretation Code Description Data Veronica rce(s) Supporting Document(s) ID Date Data Source [id number] 09/13/2019 01:37:00 PM EDT [facility] 1 Clinical Report - Physicians/Mid Levels [facility] Emergency Department [address] [place] [address] Phone #: ext- [phone] 09/13/2019 13:33 Patient: WEN BERG Sex: M : 1970 Age: 49y Time Seen: 13:50 09/13/2019. Arrived- By private vehicle. Historian- patient.HISTORY OF PRESENT ILLNESS Chief Complaint: Injury to the left index finger and left middle finger. The injury happened 2 days ago. The patient sustained a laceration but did not sustain a burn. This was not caused by a direct blow or puncture wound or a crush injury or twisting injury. Patient did not fall. Occurred at home. ( put cut himself two days ago on an AC fan). ( pt reports he taped his first two fingers up on left hand. pt woke today with hand swollen and red.Pt reports he tried to open the wound again and soak it because of the swelling but he was unable to. pt reports significant bleeding at the time of injury and that it was a deep wound. pt denies DM. Pt has some yellow colored drainage around the site. Pt is now unable to bend his fingers due to swelling.). Patient is experiencing mild pain that has recently become worse.REVIEW OF SYSTEMSThe patient sustained a laceration. He has had swelling. No tingling, numbness, weakness or foreignbody.PAST HISTORYTetanus immunization status is up-to-date. Medications: Nitro 0.4mg SL. Chantix Starting Month Ryder Oral. Melatonin 10mg. Intresto . Clopidogrel Bisulfate Oral 75 mg, daily. Atorvastatin Calcium Oral 40 mg, daily. Carvedilol Phosphate ER Oral 6.25, 2x a day. [facility]. Lisinopril Oral 5 mg, daily (unknown dose). Levothyroxine Sodium Oral 100 mcg. Aspirin Oral 81 mg. Allerg ies: None.SOCIAL HISTORYCurrent every day smoker (cigarette). Occasional alcohol use. No drug use. 2 Clinical Report - Physicians/[facility] Emergency Department [address] [place] [address] Phone #: ext- [phone] 09/13/2019 13:33 Patient: WEN BERG Sex: M : 1970 Age: 49yPHYSICAL EXAMVital Signs: 09/13/2019 13:36 BP: 165/106. MAP: 125. HR: 97. RR: 20. O2 saturation: 99%. Temp: 98.9F. Have been reviewed as abnormal. Hypertensive. Oxygen saturation normal.Appearance: Alert. Oriented X3. No acute distress.Head: Head atraumatic.Eyes: Pupils equal, round and reactive to light. Eyes normal inspection.ENT: Ears normal. Nose normal. Pharynx normal.Neck: Normal inspection.CVS: Normal heart rate.Respiratory: No respiratory distress.Abdomen: No visible injury.Back: Normal inspection.Skin: Skin warm and dry.Extremities: Dorsal left hand: mild erythema and tenderness, moderate swelling and subcutaneouslaceration of the distal aspect of the dorsal hand. Limited extension of the index and middle finger.Neurovascular intact distally. Left index finger: mild erythema and tenderness, moderate swelling andsubcutaneous 2.0 cm laceration with controlled bleeding of the dorsal aspect and proximal phalanx; limitedmovement secondary to swelling. Neurovascular intact distally. (pt was able to flex and extend finger upuntil this morning when it was markedly swollen). Left middle finger: superficial laceration. Extremitiesotherwise negative.Neuro, Vascular and Tendons: Vascular status intact. Sensation intact. Motor intact. Tendon functionintact.Neuro: Oriented X 3.PROGRESS AND PROCEDURESCourse of Care: :Sep 13 2019. Evaluation after observation. (Discussed exam findings andconcern for cellulitis and need for ortho eval, pt does not want to stay and will treat with IM Rocephin andPO clind and close follow up.). Patient counseled in person regarding the patient's stable condition, diagnosis and need for follow-up. Patient agrees with plan of care. :Sep 13 2019. Disposition: Discharged home in good and improved condi tion (Sep 13 2019).CLINICAL IMPRESSION Multiple deep lacerations to the left index finger and left middle finger. Delayed evaluation. Cellulitis present. No foreign body present or left fingernail injury.INSTRUCTIONS Warnings: COMPLICATIONS: Complications from this condition include: possible infection and possible 3 Clinical Report - Physicians/Mid Levels [facility] Emergency Department [address] [place] [address] Phone #: ext- [phone] 09/13/2019 13:33 Patient: WEN BERG Sex: M : 1970 Age: 49y injury to a tendon. Future problems may include infection, loss of function and pain. INFECTION: Watch for signs of infection (increasing heat and redness, pus-like drainage, swelling, or increased pain). Return or see your doctor if these signs occur. GENERAL WARNINGS: Return or contact your physician immediately if your condition worsens or changes unexpectedly, if not improving as expected, or if other problems arise. Specifically return if pain or fever worsens. Your Current Medications: Your current home medications have been rev iewed. CONTINUE TAKING THE FOLLOWING MEDICATIONS: Aspirin Oral : 81 mg. Atorvastatin Calcium Oral : 40 mg daily. Carvedilol Phosphate ER Oral : 6.25 2x a day. Chantix Starting Month Ryder Oral. Clopidogrel Bisulfate Oral : 75 mg daily. Intresto *. [facility]*. Levothyroxine Sodium Oral : 100 mcg. Lisinopril Oral : 5 mg daily, unknown dose. Melatonin 10mg*. Nitro 0.4mg SL*. Prescription Medications: clindamycin HCl 300 mg capsule Take 1 capsule four times a day for 10 days -- Dispense 40 capsule. Refills: 0. Substitution permitted. [facility] - [address] [place], [place] [phone]. . Keflex 500 mg capsule Take 1 capsule three times a day as directed for 10 days -- Dispense 30 capsule. Refills: 0. Substitution permitted. [facility] - [address] [place], [place] [phone]. . Follow-up: Follow up with doctor Here in the ED tomorrow. Reason for referral: evaluation and treatment. Summary of care provided to patient. Understanding of the discharge instructions verbalized by patient.(Electronically signed by ANGEL Esparza 09/13/2019 21:24) 4Clinical Report - Physicians/Mid Levels [facility] Emergency Department [address] [place] [address] Phone #: ext- [phone] 09/13/2019 13:33 Patient: WEN BERG Sex: M : 1970 Age: 49y Name Value Range Interpretation Code Description Data Veronica rce(s) Supporting Document(s) ID Date Data Source [id number] 07/15/2019 09:20:29 AM EDT [facility] Measurements & CalculationsHeight: 70 inches (5 ft. 10 in.) 177.80 cm Weight: 217 pounds 98.64 kg Body Mass Index (BMI): 31.25BMI Interpretation: ObeseBody Surface Area (BSA): 2.16Weight Management Education Done (Nutrition/Physical Activity)Vital SignsTemperature: 97.5F oral Pulse Rate: 85 beats/minuteRespiratory Rate: 18 respirations/minuteBlood Pressure: 138/96 left arm sitting automaticO2 Saturation: 98% room airVital Signs performed by: Julius Moe MA, July 15, 2019 9:38 AMInitial Intake Information from: patientRoom #: 15Smoking, Tobacco, Vaping or Smoke Exposure StatusSmoke Status: current every day smokerTobacco Use: YesAdv to Quit: YesDo you vape? NoPassive Smoke Exposure: YesHealthcare HistorySince your last office visit...Have you been admitted to the hospital? NoHave you been to an emergency room (ER) or urgent care clinic? NoHave you seen another healthcare provider? NoHave you seen a dentist? NoIntake performed by: Julius Moe MA, July 15, 2019 9:23 AMRate Your HealthIn general, would you say your health is? FairPain AssessmentAre you currently having any pain which... You would like your provider to address? Yes Affects your activity level? YesDepression Screening - PHQ-2Over the last two weeks, have you... Had little interest or pleasure in doing things? Not at all Been feeling down, depressed, or hopeless? Not at all PHQ-2 Score: 0Anxiety Screening - VERONIQUE-2Over the last two weeks, have you been... Feeling nervous, anxious, or on edge? Not at all Unable to stop or control worrying? Not at all VERONIQUE-2 Score: 0Food InsecurityWithin the past year...Did you worry whether your food would run out before you got money to buy more? NoWas there a time when the food you bought didn't last and you didn't have money to get more? NoInfectious Disease / Travel ScreeningRecent travel for you or any close contacts? NoHave you had any close contact with anyone diagnosed with or under investigation for COVID-19 (coronavirus)? NoHave you had any of the following symptoms recently? Fever? NoRespiratory symptoms: cough, cold, congestion, shortness of breath, difficulty breathing? NoPain AssessmentPain ScaleNumeric Rating Scale: 5 / 10Location: full body Duration: 2-3 daysFrequency: DailyCharacter/Quality: achingIs the pain radiating? NoPRAPARE Sociodemographic Characteristics Race: White Ethnicity: Not or Preferred Language: EnglishFamily and Home Address: [address] [place] [address] [address] [place] [address] What is your housing situation today? I have housing Are you worried about losing your housing? NoMoney and Resources What is the highest level of school that you have finished? 9th-12th grade Employed? No Are you seeking work? No Insurance: Managed Care FidelisIn the past year, have you or any family members you live with been unable to get any of the following when it was really needed? Denies Insecurity: food, utilities, clothing, early childhood specialist, phone, legal services, otherWithin the past year did you worry whether your food would run out before you got money to buy more? NoWithin the past year was there a time when the food you bought didn't last and you didn't have money to get more? NoIn the past year, have you had trouble affording costs associated with health insurance (such as deductibles, co-payments, etc.)? YesSocial and Emotional Health How often do you see or talk to people that you care about and feel close to? 3 to 5 times a week How stressed are you? Quite a bitAdditional Optional Domains In the past 3 months, have you spent more than 2 nights in a row in a chcf, fci, snf center or juvenile correctional facility? No Has lack of transportation kept you from medical appointments or from getting your medications? Yes - medical and non-medicalIn the past year, have you had trouble getting any of the following when it was really needed (check a ll that apply)?health insurancemedical caredental caremental health careIn the past year, have you had trouble paying the costs associated with health care or medicine (such as co-payments, costs for services, prices of medicines)? Yes - with both HC and medicine costsHow confident are you that you can control and manage most of your health problems? Somewhat confident Are you a refugee? No (Country of origin: [facility]) Do you feel physically and emotionally safe where you live? Yes In the past year, have you been afraid of a partner, ex-partner? NoScreening, Brief Intervention, & Referral to Treatment (SBIRT)Pre-Screening Questions How many times have you have 5 or more drinks in a day? 0How many times have you used an illegal drug or used a prescription medication for a non- medical reason? 300Performed by: Julius Moe MA, July 15, 2019 9:27 AMDAST Have you used drugs other than those required for medical reasons? Yes Do you abuse more than one drug at a time? No Are you always able to stop using drugs when you want to? Yes Have you ever had blackouts or flashbacks as a result of drug use? No Do you ever feel bad or guilty about your drug use? No Does your spouse (or parents) ever complain about your involvement with your drugs? Yes Have you neglected your family because of your use of drugs? Yes Have you engaged in illegal activities in order to obtain drugs? Yes Have you ever experienced withdrawal symptoms (felt sick) when you stopped taking drugs? No Have you had medical problems as a result of your drug use (e.g. memory loss, hepatitis, convulsions, bleeding)? NoToday's Results: DAST Score: 4 DAST Interpretation: Brief Treatment Performed by: Julius Moe MA, July 15, 2019 9:28 AMPatient History Medical History:High cholesterolHypert ensionHypothyroidismObesityCongestive heart failureCoronary artery diseaseDeep vein thrombosis - ChronicLeg edemaMyocardial iipqyenzulY8Rdhzpsnga of breathGERDAbdominal painInsomniaADHDAlcohol abuseSubstance abuseSurgical History:cadiac stents L9Plxzcb History:OR - Male under age 55 (Father)High cholesterol (Father)Hypertension (Father)Cancer - Brain (Father)Social/Personal History: Advised to Quit/Tobacco Education: YesChief ComplaintNew PE/ establish care RM 15History of Present Illness (HPI)I, Angel Logan MA, am scribing for, and in the presence of, Abimael Donnelly DO pt is here today to establish care. pt states he has had four heart attacks in his life. pt would like a refferal for a door cutter. DO will send in refferal. pt states his first heart attack was 2008 and his last one was in february. pt states 34% of his heart works. pt states they will not put a stent in because the heart is too weak. pt states he is moderate. DO will send in medication for pt's diagnosis. Pt also wants to quit smoking, 2ppd. Pt has dailt CP and palptitations, diaphoresis. Pt to go to ER if sx get worse.Problem ReviewProblem List was reviewed and/or updated during this visit.Medication Reconciliation & ReviewMedication List was reviewed and/or updated during this visit, including review of any yhxv-cub-mccnxil medications, herbal therapies, and/or supplements.Allergy ReviewAllergy List was reviewed and/or updated during this visit. Patient has no known allergies.Adult Preventive CareProvider Calculated and Reviewed all Clinical Protocols for patient today. Screening Tobacco Screening: Smoking Status: current every day smoker (07/15/2019) Tobacco Use: Currently (07/15/2019) Advised to Quit: Yes (07/15/2019)Labs/Meds/Other Counseling-Nutrition and Physical Activity:BMI Interpretation: Obese (07/15/2019) Counseling: Done (07/15/2019) Physical Activity: Done (07/15/2019)Cancer Screening ColonoscopyReviewed:Today's Comments: Pt refused Review of Systems General: Complains of fatigue, sleep disturbances. Cardiovascular: Complains of chest pain, palpitations, SOB at night. Respiratory: Complains of shortness of breath. Physical ExamGeneral Appearance: well nourished, well hydrated, no acute distressRespiratory, Auscultation: clear to auscultation bilaterally; no rales, rhonchi, or wheezesRespiratory, Effort: no intercostal retractions or use of accessory musclesCardiovascular, Auscultation: S1, S2 audible; no murmur, rub, or gallop; RRRGait & Station: normalOrientation: oriented to time, place, and personMood & Affect: no depression, anxiety, or agitationJudgment & Insight: intactRate Your HealthIn general, would you say your health is? 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 (ICD-414.01) (WVF20-E53.118)Nicotine dependence, cigarettes, uncomplicated (QHY27-F44.210)Benign lipomatous neoplasm of kidney (YPT20-K74.71)Insomnia, unspecified (OQK51-B84.00)Medications:NITROGLY CERIN 0.4 MG SUBLINGUAL TABLET SUBLINGUALCHANTIX STARTING MONTH RYDER 0.5 MG X 11 & 1 MG X 42 ORAL TABLETCVS MELATONIN 10 MG ORAL CAPSULEATORVASTATIN CALCIUM 40 MG ORAL TABLETEUTHYROX 100 MCG ORAL TABLETLISINOPRIL 5 MG ORAL TABLETASPIRIN 81 MG ORAL TABLET CHEWABLECLOPIDOGREL BISULFATE 75 MG ORAL TABLETMedication Changes:New Prescription:CLOPIDOGREL BISULFATE 75 MG ORAL TABLET-one tablet po QD Qty: 90 Refills: 1 Method: Print then Give to PatientCLOPIDOGREL BISULFATE 75 MG ORAL TABLET-one tablet po QD Qty: 90 Refills: 1 Method: Print then Give to PatientASPIRIN 81 MG ORAL TABLET CHEWABLE-one tab po QD Qty: 90[Tablet] Refills: 1 Method: ElectronicLISINOPRIL 5 MG ORAL TABLET-one tab po QD Qty: 90[Tablet] Refills: 1 Method: ElectronicEUTHYROX 100 MCG ORAL TABLET-one tab po QD Qty: 90[Tablet] Refills: 1 Method: ElectronicATORVASTATIN CALCIUM 40 MG ORAL TABLET-one tab po QD Qty: 90[Tablet] Refills: 1 Method: ElectronicCVS MELATONIN 10 MG ORAL CAPSULE-one tab po qhs for sleep Qty: 90[Capsule] Refills: 1 Method: ElectronicCHANTIX STARTING MONTH RYDER 0.5 MG X 11 & 1 MG X 42 ORAL TABLET-as dir Qty: 1[Packet] Refills: 1 Method: ElectronicCLOPIDOGREL BISULFATE 75 MG ORAL TABLET-one tablet po QD Qty: 90 Refills: 1 Method: Print then Give to PatientNITROGLYCERIN 0.4 MG SUBLINGUAL TABLET SUBLINGUAL-one pill nder tongue for CP Qty: 25[Tablet] Refills: 5 Method: ElectronicAllergies:No Known Allergies (updated 07/15/2019) Orders:Adult - Ofc Vst, EST, Level IV [CPT-10148] Adult - Ofc Vst, NEW, Level IV [CPT-80917] Cardiology Consult [CPT-69122] COMP METABOLIC PANEL [CPT-91604] CBC W/DIFF [CPT-46414] HgBA1c [CPT-38516] LIPID PANEL [CPT-87916] TSH [CPT-48851] Vitamin D 250H Unspecified [CPT-59624] Medications:NITROGLYCERIN 0.4 MG SUBLINGUAL TABLET SUBLINGUAL (NITROGLYCERIN) one pill nder tongue for CP #25[Tablet] x 5 Route:SUBLINGUAL Entered and Authorized by: Abimael Donnelly DO Method used: Electronically to [facility] (retail) [address] [place] [address] Note to Pharmacy: Route: SUBLINGUAL; RxID: [id number] BISULFATE 75 MG ORAL TABLET (CLOPIDOGREL BISULFATE) one tablet po QD #90[Tablet] x 1 Route:ORAL Entered and Authorized by: Abimael Dnonelly DO Method used: Electronically to [facility] (retail) [address] [place] [address] Note to Pharmacy: Route: ORAL; RxID: [id number] STARTING MONTH RYDER 0.5 MG X 11 & 1 MG X 42 ORAL TABLET (VARENICLINE TARTRATE) as dir #1[Packet] x 1 Route:ORAL Entered and Authorized by: Abimael Donnelly DO Method used: Electronically to [facility] (retail) [address] [place] [address] Note to Pharmacy: Route: ORAL; RxID: [id number] MELATONIN 10 MG ORAL CAPSULE (MELATONIN) one tab po qhs for sleep #90[Capsule] x 1 Route:ORAL Entered and Authorized by: Abimael Donnelly DO Method used: Electronically to [facility] (retail) [address] [place] [address] Note to Pharmacy: Route: ORAL; RxID: [id number] CALCIUM 40 MG ORAL TABLET (ATORVASTATIN CALCIUM) one tab po QD #90[Tablet] x 1 Route:ORAL Entered and Authorized by: Abimael Donnelly DO Method used: Electronically to [facility] (retail) [address] [place] [address] Note to Pharmacy: Route: ORAL; RxID: [id number] 100 MCG ORAL TABLET (LEVOTHYROXINE SODIUM) one tab po QD #90[Tablet] x 1 Route:ORAL Entered and Authorized by: Abimael Donnelly DO Method used: Electronically to [facility] (retail) [address] [place] [address] Note to Pharmacy: Route: ORAL; RxID: [id number] 5 MG ORAL TABLET (LISINOPRIL) one tab po QD #90[Tablet] x 1 Route:ORAL Entered and Authorized by: Abimael Donnelly DO Method used: Electronically to [facility] (retail) [address] [place] [address] Note to Pharmacy: Route: ORAL; RxID: [id number] 81 MG ORAL TABLET CHEWABLE (ASPIRIN) one tab po QD #90[Tablet] x 1 Route:ORAL Entered and Authorized by: Abimael Donnelly DO Method used: Electronically to [facility] (retail) [address] [place] [address] Note to Pharmacy: Route: ORAL; RxID: [id number] BISULFATE 75 MG ORAL TABLET (CLOPIDOGREL BISULFATE) one tablet po QD #90[Tablet] x 1 Route:ORAL Entered and Authorized by: Abimael Donnelly DO Method used: Electronically to [facility] (retail) [address] [place] [address] Note to Pharmacy: Route: ORAL; RxID: [id number] BISULFATE 75 MG ORAL TABLET (CLOPIDOGREL BISULFATE) one tablet po QD #90 x 1 Route:ORAL Entered and Authorized by: Abimael Donnelly DO Method used: Print then Give to Patient Note to Pharmacy: Route: ORAL; RxID: [id number] Administered/Entered:Vaccination Group: InfluenzaSeries: 1 NOT GIVENVaccination: Flucelvax Quadrivalent PF (4y+) AdultReason Not Given: Patient decisionEntered Date: 07/15/2019 12:00 AMComments: PT refusedEntered by: Julius Moe MA Name Value Range Interpretation Code Description Data Veronica rce(s) Supporting Document(s) Procedure Vital Signs ID Date Data Source UNK Name Value Range Interpretation Code Description Data Source(s) Diastolic blood pressure--sitting 114 mm[Hg] 11 4 mm[Hg] MEDESTELA ([facility]) Omron, large cuff/Ra Systolic blood pressure--sitting 153 mm[Hg] 153 mm[Hg] MEDENT ([facility]) Omron, large cuff/Ra Heart rate 82 /min 82 /min [facility] ([facility]) Body mass index (BMI) [Ratio] 35.4 kg/m2 35.4 k g/m2 MEDENT ([facility]) Body height 70 [in_i] 70 [in_i] [facility] 5'10" Body weight 247.00 [lb_av] 247.00 [lb_av] MEDEN T ([facility]) Diastolic blood pressure--sitting 101 mm[Hg] 10 1 mm[Hg] MEDENT ([facility]) Omron large cuff, Ra Systolic blood pressure--sitting 130 mm[Hg] 130 mm[Hg] MEDENT ([facility]) Omron large cuff, Ra Heart rate 84 /min 84 /min [facility] [place] Body mass index (BMI) [Ratio] 32.6 kg/m2 32.6 k g/m2 MEDENT ([facility]) Body height 70 [in_i] 70 [in_i] [facility] ([facility] 5'10" Body weight 227.00 [lb_av] 227.00 [lb_av] MEDEN T ([facility]) Diastolic blood pressure--sitting 118 mm[Hg] 11 8 mm[Hg] MEDENT ([facility]) Omron, large cuff/Ra Systolic blood pressure--sitting 162 mm[Hg] 162 mm[Hg] MEDENT ([facility]) Omron, large cuff/Ra Heart rate 71 /min 71 /min [facility] ([facility] [place] [place] Body mass index (BMI) [Ratio] 32.9 kg/m2 32.9 k g/m2 MED[facility] ([facility]) Body height 70 [in_i] 70 [in_i] [facility] ([facility]) 5'10" Body weight 229.00 [lb_av] 229.00 [lb_av] MEDEN T ([facility]) Diastolic blood pressure--sitting 120 mm[Hg] 12 0 mm[Hg] MEDENT ([facility]) Omron large cuff, Ra Systolic blood pressure--sitting 171 mm[Hg] 171 mm[Hg] MEDENT ([facility]) Omron large cuff, Ra Heart rate 71 /min 71 /min [facility] ([facility]) Body mass index (BMI) [Ratio] 34.0 kg/m2 34.0 k g/m2 [facility] ([facility]) Body height 70 [in_i] 70 [in_i] [facility] ([facility]) 5'10" Body weight 237.00 [lb_av] 237.00 [lb_av] MEDEN T ([facility]) Body mass index (BMI) [Ratio] 33.0 kg/m2 33.0 k g/m2 MED[facility] ([facility] Body weight 230.00 [lb_av] 230.00 [lb_av] MEDEN T ([facility] ) Body height 70 [in_i] 70 [in_i] MEDENT ([facility]) 5'10" Body temperature 99.0 [degF] 99.0 [degF] [facility] ([facility] ) Diastolic blood pressure--sitting 117 mm[Hg] 11 7 mm[Hg] MEDENT ([facility]) Omron adult cuff, [place] Systolic blood pressure--sitting 170 mm[Hg] 170 mm[Hg] [facility] ([facility]) Omron adult cuff, [place] Heart rate 74 /min 74 /min [facility] ([facility] [place] [place] Body mass index (BMI) [Ratio] 32.7 kg/m2 32.7 k g/m2 [facility] ([facility]) Body height 70 [in_i] 70 [in_i] [facility] ([facility]) 5'10" Body weight 228.00 [lb_av] 228.00 [lb_av] MEDEN T ([facility]) Diastolic blood pressure--sitting 104 mm[Hg] 10 4 mm[Hg] MEDENT ([facility]) Omron large cuff, Ra Systolic blood pressure--sitting 149 mm[Hg] 149 mm[Hg] MEDENT ([facility]) Omron large cuff, Ra Heart rate 76 /min 76 /min [facility] ([facility]) Body mass index (BMI) [Ratio] 30.4 kg/m2 30.4 k g/m2 MEDESTELA ([facility]) Body height 70 [in_i] 70 [in_i] [facility]ELA ([facility]) 5'10" Body weight 212.00 [lb_av] 212.00 [lb_av] JOSY T ([facility])
[2020-05-22] MEDS ORDERED: SERO50TA PO (02:22)
[2020-05-22 02:43] LABS: HEMATOCRIT 43.9 % (42.0-52.0); HEMOGLOBIN 14.5 g/dl (13.5-17.5); MEAN CORPUSCULAR HEMOGLOBIN 29.8 pg (27.0-33.0); MEAN CORPUSCULAR VOLUME 90.3 fl (80.0-96.0); PLATELET COUNT, AUTOMATED 216 10^3/uL (150-450); RED BLOOD COUNT 4.86 10^6/uL (4.30-6.10); WHITE BLOOD COUNT 8.1 10^3/uL (4.0-10.0)
[2020-05-22 03:10] LABS: AMPHETAMINES LEVEL URINE NEGATIVE (NEGATIVE); BARBITURATES URINE NEGATIVE (NEGATIVE); BENZODIAZEPINES URINE NEGATIVE (NEGATIVE); CANNABINOIDS URINE NEGATIVE (NEGATIVE); COCAINE METABOLITE URINE NEGATIVE (NEGATIVE); METHADONE URINE NEGATIVE (NEGATIVE); OPIATES URINE NEGATIVE (NEGATIVE); PHENCYCLIDINE URINE NEGATIVE (NEGATIVE)
--- OUTSIDE RECORDS SUMMARY | 2020-05-22 03:34 | CCD ---
Author Author [facility] Organization [facility] Address Unknown Phone Unavailable Care Team Providers Care Waste Reduction Coordinator Name Role Phone LiAntonionbo PA Unavailable Unavailable Li, Zhenbo PA Unavailable Unavailable Li, Zhenbo PA Unavailable Unavailable Namrata, Zhenbo PA Unavailable Unavailable ANTECOLCristina MD Unavailable Unavailable ANTECOL, Cristina WILLETT MD Unavailable Unavailable ANTECOLCristina MD Unavailable Unavailable [...] Unavailable Unavailable NON, PHYSICIAN STAFF Unavailable Unavailable JOSE MAMonicaBOLIDIA GIN MD Unavailable Unavailable JOSE MAQBOOL GIN MD Unavailable Unavailable JOSE MAQBOLIDIA GIN MD Unavailable Unavailable JOSE MAQBOOL GIN MD Unavailable Unavailable JOSE MAQBOOL GIN Unavailable Unavailable JOSE MAQBOOL GIN MD Unavailable Unavailable JOSE MAQBOOL GIN MD Unavailable Unavailable JOSE, MAQBOOL GIN MD Unavailable Unavailable JOSE MAQBOOL GIN MD Unavailable Unavailable JOSE MAQBOOL GIN MD Unavailable Unavailable JOSE MAQBOOL GIN MD Unavailable Unavailable JOSE, MAQBOOL GIN MD Unavailable Unavailable JOSE, MAQBOOL GIN MD Unavailable Unavailable JOSE MAQBOOL GIN MD Unavailable Unavailable JOSE, MAQBOOL [...] Unavailable Unavailable Rashida Morin MD Unavailable Unavailable Rashiad Morin MD Unavailable Unavailable Rashida Morin MD [...] Unavailable Unavailable ADIA MCKENZIE MD Unavailable Unavailable DAIA MCKENZIE MD Unavailable Unavailable ADIA MCKENZIE MD [...] Unavailable Unavailable Samantha HERNANDEZ MD Unavailable Unavailable VENERUAdiel, Sophie HOPE MD Unavailable Unavailable VENERUS, Sophie HOPE MD Unavailable Unavailable VENERUS, Sophie HOPE MD Unavailable Unavailable VENERUAdiel, Sophie HPOE MD Unavailable Unavailable VENERUS, Sophie HOPE MD Unavailable Unavailable VENERUS, Sophie HOPE MD Unavailable Unavailable VENERUS, Sophie HOPE MD Unavailable Unavailable VENERUS, Sophie HOPE MD Unavailable Unavailable VENERUS, Sophie HOPE MD [...] ANTECOL, Cristina TAMIE SAVAGE Unavailable Unavailable ANTECOL, Crisitna TAMIE SAVAGE Unavailable Unavailable ANTECOL, Cristina TAMIE [...] is protected by Article 27-F of the [facility] Public Health law. If you continue you may have access to information: Regarding HIV / AIDS; Provided by facilities licensed or operated by the [facility] Office of Mental Health; or Provided by the [facility] Office for People With Developmental Disabilities. If such information is present, then the following [facility] mandated warning applies: This information has been [...] law may result in a fine or alf sentence or both. A general authorization for the release of medical or other information is NOT sufficient authorization for further disc losure. Allergies and Adverse Reactions Type Description Substance Reaction Status Data Source(s ) No Known Drug Allergies No Known Drug Allergies [facility] Encounters Encounter Providers Location Date Indications Data Source(s ) Outpatient Attender: Guy Peterson nder: TAMIE SAVAGE MDConsultant: STAFF NON 03/14/2020 12:15:00 PM EST - 03/14/2020 01:15:00 PM [facility] Outpatient Attender: TAMIE SAVAGE MD Main Office 02/16/2020 08:00:00 AM EDT [facility] ([facility]) Outpatient Attender: Lucia Ott PAConsultant: STAFF NON 02/03/2020 05:21:00 PM EDT - 02/03/2020 05:21:00 PM EDT [facility]ender: TAMIE SAVAGE MD Main Office 01/04/2020 08:00:00 AM EDT [facility] ([facility]) Outpatient Attender: TAMIE SAVAGE MD Main Office 11/23/2019 01:30:00 PM EDT [facility] ([facility]) Outpatient Attender: Guy Morin MD FP 11/14/2019 04:15:01 PM EDT [facility] Outpatient Attender: TAMIE SAVAGE MD Main Office 11/13/2019 08:00:00 AM EDT [facility] ([facility]) Outpatient Attender: Guy Morin MD FP 10/27/2019 02:48:01 PM EDT [facility] Outpatient Attender: Guy Morin MD FP 10/26/2019 09:18:00 AM EDT [facility] Outpatient Attender: Guy Morin MD FP 10/08/2019 01:43:00 PM EDT [facility] Outpatient Attender: Yuri Vilchis MDConsultant: STAFF NON 10/07/2019 10:18:27 AM EDT - 10/14/2019 02:24:00 PM EDT [facility] Patient discharged. Outpatient Attender: Guy Morin MD FP 10/05/2019 04:34:00 PM EDT [facility] Outpatient Attender: Guy Morin MD FP 09/29/2019 08:03:23 PM EDT [facility] Outpatient Attender: Yuri Vilchis MD Physical Therapy 06/2019 04:00:00 PM EDT [facility] ([facility]) Outpatient Attender: Guy Morin MD FP 09/22/2019 09:53:00 AM EDT [facility] Outpatient Attender: Guy Morin MD FP 09/21/2019 04:56:02 PM EDT [facility] Outpatient Attender: Guy Morin MD 09/21/2019 04:55:00 PM EDT [facility] Outpatient Attender: Guy Morin MD 09/21/2019 01:01:00 PM EDT [facility] Outpatient Attender: TAMIE SAVAGE MD Main Office 09/17/2019 08:00:00 AM EDT [facility] ([facility]) Outpatient Attender: Guy Morin MD 09/17/2019 07:32:00 AM EDT [facility] Outpatient Attender: Guy Morin MD 09/16/2019 01:00:01 PM EDT [facility] Emergency Attender: JAYY BRENNAN MDConsultant: GIN PRESCOTT MD 09/13/2019 01:37:00 PM EDT - 09/13/2019 02:36:00 PM EDT [facility] Patient discharged. Outpatient Attender: TAMIE SAVAGE MD Main Office 07/23/2019 09:45:00 AM EDT [facility] ([facility]) Outpatient Attender: Guy Morin MD 07/15/2019 02:12:01 PM EDT [facility] Outpatient Attender: Guy Morin MD 07/15/2019 11:45:00 AM EDT [facility] Outpatient Attender: Guy Morin MD 07/15/2019 11:42:00 AM EDT [facility] Outpatient Attender: Guy Morin MD 07/15/2019 10:29:00 AM EDT [facility] Outpatient Attender: Guy Morin MD 07/15/2019 10:12:02 AM EDT [facility] Outpatient Attender: Guy Morin MD 07/15/2019 10:12:01 AM EDT [facility] Outpatient Attender: Guy Morin MD 07/15/2019 10:07:01 AM EDT [facility] Outpatient Attender: Guy Morin MD 07/15/2019 10:04:59 AM EDT [facility] Outpatient Attender: Guy Morin MD 07/15/2019 09:52:01 AM EDT [facility] Outpatient Attender: Guy Morin MD [facility] 07/15/2019 09:51:00 AM EDT [facility] Outpatient Attender: Guy Morin MD [facility] 07/15/2019 09:50:00 AM EDT [facility] Outpatient Attender: Guy Morin MD [facility] 07/15/2019 09:49:01 AM EDT [facility] Outpatient Attender: Guy Morin MD [facility] 07/15/2019 09:48:01 AM EDT [facility] Outpatient Attender: Guy Morin MD [facility] 07/15/2019 09:20:00 AM EDT [facility] Outpatient Attender: Guy Morin MD [facility] 07/15/2019 09:18:00 AM EDT [facility] Outpatient [facility] 07/15/2019 09:16:00 AM EDT [facility] Outpatient [facility] 07/14/2019 11:09:00 AM EDT [facility] Outpatient [facility] 06/25/2019 09:01:10 PM EST [facility] Outpatient [facility] 06/25/2019 11:41:01 AM EST [facility] Outpatient [facility] 06/25/2019 11:37:00 AM [facility] Outpatient 04/24/2019 10:21:00 AM [facility] Inpatient Attender: Ajay weinstein MDAttender: ADIA MCKENZIE MDAttender: MARITZA HERNANDEZ MDAdmitter: Ajay Grossman MD [id number] 08:13:00 AM [facility] - 03/11/2019 07:27:00 PM [facility] Patient discharged. Medications Medication Brand Name Start Date Product Form Dose Route Admi nistrative Instructions Pharmacy Instructions Status Indications Reaction Description Data Source(s) carvedilol 25 MG Oral Tablet Carvedilol 01/04/2020 12:00:00 AM EDT ORAL active [facility] Chlorthalidone 25 MG Oral Tablet Chlorthalidone 11/23/2019 12:00:00 A M EDT ORAL active [facility] carvedilol 25 MG Oral Tablet Carvedilol 11/23/2019 12:00:00 AM EDT ORAL completed [facility] quetiapine 50 MG Oral Tablet [Seroquel] Seroquel 11/12/2019 12:00:0 0 AM EDT ORAL active [facility] Doxycycline Monohydrate 100 MG Oral Capsule Doxycycline [place] hydrate 09/30/2019 12:00:00 AM EDT ORAL active M [facility] ([facility]) Acetaminophen 325 MG / Oxycodone Hydrochloride 5 MG Or al Tablet [Percocet] Percocet 09/23/2019 12:00:00 AM EDT active [facility] ([facility]) Spironolactone 25 MG Oral Tablet Spironolactone 09/17/2019 12:00:00 A M EDT ORAL completed [facility] Losartan Potassium 100 MG Oral Tablet Losartan Potassium 12:00:00 AM EDT ORAL active [facility] ([facility] carvedilol 12.5 MG Oral Tablet Carvedilol 09/17/2019 12:00:00 AM EDT ORAL completed [facility] ([facility]) sacubitril 24 MG / valsartan 26 MG Oral Tablet [Entresto] En tresto 07/23/2019 12:00:00 AM EDT ORAL completed [facility] ([facility]) carvedilol 6.25 MG Oral Tablet Carvedilol 07/23/2019 12:00:00 AM EDT ORAL completed [facility]) clopidogrel 75 MG Oral Tablet Clopidogrel Bisulfate 07/22/2019 1 2:00:00 AM EDT ORAL active [facility] ( [facility]) Aspirin 81 MG Delayed Release Oral Tablet Aspirin 81 2019 12:00:00 AM EDT ORAL active [facility] ( [facility]) Nitroglycerin 0.4 MG Sublingual Tablet [Nitrostat] Nitrostat 07/22/2019 12:00:00 AM EDT SUBLINGUAL active [facility] ([facility]) atorvastatin 40 MG Oral Tablet Atorvastatin Calcium 07/22/2019 1 2:00:00 AM EDT ORAL active [facility] ( [facility]) Lisinopril 5 MG Oral Tablet Lisinopril 07/22/2019 12:00:00 AM EDT ORAL completed [facility] ([facility]) Levothyroxine Sodium 0.1 MG Oral Tablet [Euthyrox] Euthyrox 07/22/2019 12:00:00 AM EDT ORAL active [facility] Chantix Starting Month Ryder Chantix Starting Month Ryder 2019 12:00:00 AM EDT ORAL completed [facility] ([facility]) Insurance Providers Payer name Policy type / Coverage type Policy ID Covered democrat ID Covered democrat's relationship to ferguson Policy [place] Plan Information [facility] [id number] SP [id number] [facility] AMERICHOICE XIX -HMO [id number] 18 [id number] [facility] [place] [id number] 18 [id number] [facility] COMMUNITY PLAN [facility] [id number] SP [id number] [facility] CP DUAL COMP - RECURRING [id number] 18 [id number] Managed Care - [facility] Community Plan P [id number] S [id number] Medicaid S [id number] S [id number] Managed Care Decker P [id number] S [id number] Medicaid S [id number] S [id number] Managed Care Decker P [id number] S [id number] Medicaid S UNAVAILABLE S UNAVAILA BLE Managed Care Decker P UNAVAILABLE S UNAVAILABLE MEDICAID M [id number] S [id number] MEDICAID [id number] [employer] [id number] MEDICAID [id number] SP [id number] SELF PAY ONLY [id number] SP [id number] [facility] COMMUNITY PLAN [facility] [id number] SP [id number] [facility] MEDICAID [id number] [employer] [id number] [facility] MEDICARE [id number] [employer] [id number] [facility] [id number] [employer] [id number] [facility] SENIOR COMMERCIAL LOAN OFFICER DEP [id number] SP [id number] [facility] P [id number] S [id number] SELF PAY UNAVAILABLE SP UNAVAILA BLE Problems, Conditions, and Diagnoses Code Display Name Description Problem Type Effective Dates Data Source(s) 5443897 Noncompliance with treatment Noncompliance with treatm ent Problem 11/13/2019 12:00:00 AM EDT [facility] ([facility]) [id number] Essential hypertension Essential hypertension Problem 09/24/2019 12:00:00 AM EDT [facility] ([facility] S61.203D Unspecified open wound of le ft middle finger without damage to nail, subsequent encounter Unspecified open wound of left middle fi nger without damage to nail, subsequent encounter 09/21/2019 04:54:42 PM EDT [facility] [id number] Dietary management surveillance Dietary manageme nt surveillance Problem 09/17/2019 12:00:00 AM EDT [facility] [id number] Counseling about tobacco use Counseling about tobacco use Problem 09/17/2019 12:00:00 AM EDT [facility] ([facility]) [id number] Tobacco user Tobacco user Problem 09/17/2019 12:00:00 A M EDT [facility] ([facility]) 54587826 Precordial pain Precordial pain Problem 09/17/2019 12:0 0:00 AM EDT [facility] ([facility]) 201208247 Obesity Obesity Problem 09/17/2019 12:00:00 AM ED T [facility] ([facility]) [id number] Mixed hyperlipidemia Mixed hyperlipidemia Problem 09/17/2019 12:00:00 AM EDT [facility] ([facility]) 84454821 Essential hypertension Essential hypertension Problem 09/17/2019 12:00:00 AM EDT [facility] ([facility]) [id number] Patient post percutaneous transluminal c oronary angioplasty Patient post percutaneous transluminal coronary angioplasty Problem 12:00:00 AM EDT [facility] ([facility]) 8228541 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 myocardial infarction Pr oblem 09/17/2019 12:00:00 AM EDT [facility] ([facility]) 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 Problem 09/17/2019 12:00:00 AM EDT [facility] ([facility]) 94964029 Palpitations Palpitations Problem 09/17/2019 12:00:00 A M EDT [facility] ([facility]) 334509003 Electrocardiogram abnormal Electrocardiogram abnormal Problem 09/17/2019 12:00:00 AM EDT [facility] ([facility]) 721061855 Chronic ischemic heart disease Chronic ischemic heart disease Problem 09/17/2019 12:00:00 AM EDT [facility] ([facility]) [id number] 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 Problem 09/17/19 12:00:00 AM EDT [facility] ([facility]) 597100477 Insomnia, unspecified Insomnia, unspecified 07/15/2019 10:11:52 AM EDT [facility] 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 Darek ign lipomatous neoplasm of kidney 07/15/2019 10:11:52 AM EDT [facility] [id number] Nicotine dependence, cigarettes, uncompl icated Nicotine dependence, cigarettes, uncomplicated 07/15/2019 10:11:52 AM EDT [facility] 414.01 Atherosclerotic heart diseas e of [place] coronary artery with other forms of angina pectoris Atherosclerotic heart disease of [place] coronary artery with other forms of angina pectoris 07/15/2019 10:11:52 AM [facility] Chronic combined systolic (c ongestive) and diastolic (congestive) heart failure Chronic combined systolic (congestive) a nd diastolic (congestive) heart failure Diagnosis 03/14/2020 12:15:00 PM [facility] [id number] Laceration of extensor muscl e, fascia and tendon of left index finger at wrist and hand level, subsequent encounter Laceration of extensor muscle, fascia and tendon of left index finger at wrist and hand level, subsequent encounter Diagnosis 10/07/2019 10:25:00 AM EDT [facility] U22704 Unspecified place in unspeci fied non-institutional (private) residence as the place of occurrence of the external cause Unspecified place in unspecified non-institutional (private) residence as the place of occurrence of the external cause Diagnosis 09/13/2019 01:37:00 PM EDT [facility] [id number] Contact with other sharp obj ect(s), not elsewhere classified, initial encounter Contact with other sharp object(s), not elsewhere classified, initial encounter Diagnosis 09/13/2019 01:37:00 PM EDT [facility] Z7982 oil heaterman (current) use of aspirin oil heaterman (cu rrent) use of aspirin Diagnosis 09/13/2019 01:37:00 PM EDT [facility] Z7902 oil heaterman (current) use of antithromboti cs/antiplatelets longterm (current) use of antithrombotics/antiplatelets Diagnosis 020 01:37:00 PM EDT [facility] V53944 Nicotine dependence, cigarettes, uncompl icated Nicotine dependence, cigarettes, uncomplicated Diagnosis 09/13/2019 01:37:00 PM EDT [facility] Q46337 Cellulitis of left finger Cellulitis of left finger Di agnosis 09/13/2019 01:37:00 PM EDT [facility] [id number] Laceration without foreign b duarte of left middle finger without damage to nail, initial encounter Laceration without foreign body of left middle finger without damage to nail, initial encounter Diagnosis 09/13/2019 01:37:0 0 PM EDT [facility] L01446B Laceration without foreign b duarte of left index finger without damage to nail, initial encounter Laceration without foreign body of left index finger without damage to nail, initial encounter Diagnosis 09/13/2019 01:37:0 0 PM EDT [facility] [id number] Unspecified injury of left wrist, hand a nd finger(s), initial encounter Unspecified injury of left wrist, hand and finger(s), initial encounter Diagnosis 09/13/2019 01:37:00 PM EDT [facility] Surgeries/Procedures Procedure Description Date Indications Data Source(s) Arthrotomy Interphalangeal JT W/Explore/Drain/Remove FB 09/24/2019 12:00:00 AM EDT [facility] REPAIR EXTENSOR TENDON FINGER W/O GRAFT EACH 0 12:00:00 AM EDT [facility] ) RADEX HAND MINIMUM 3 VIEWS 09/23/2019 12:00:00 AM EDT [facility] ) ECHO TTHRC R-T 2D W/WOM-MODE COMPL SPEC&COLR DOP 08/19 12:00:00 AM EDT [facility] ([facility]) XTRNL ECG < 48 HR RECORDING 08/10/2019 12:00:00 AM EDT [facility] ([facility]) XTRNL ECG CONTINUOUS RHYTHM PHYS REVIEW&INTERPJ 2019 12:00:00 AM EDT [facility]) ECG ROUTINE ECG W/LEAST 12 LDS W/I&R 07/23/2019 12:00: 00 AM EDT [facility] ([facility]) Results ID Date Data Source [id number] 03/14/2020 12:20:00 PM EST [facility] ([facility]) Name Value Range Interpretation Code Description Data Veronica rce(s) Supporting Document(s) Sodium 142 meq/L 134-153 [facility] ([facility]) Basic Metabolic Pane Laboratory test result [facility] ([facility]) BASIC METABOLIC PANEL Potassium 5.1 meq/L 3.6-5.0 [facility] ([facility]) Chloride 105 meq/L 98-107 [facility] ([facility]) Co2 30 meq/L 22-30 [facility] ([facility]) BUN/Creat 13 8-27 [facility] ([facility]) Creatinine 1.0 mg/dL 0.7-1.5 [facility] ([facility]) BUN 13 mg/dL 7-21 [facility] ([facility]) Glucose 99 mg/dL 65-110 [facility] ([facility]) Calcium 10.3 mg/dL 8.4-10.2 [facility] ([facility]) Anion Gap 7.0 mmol/L 8.0-16.0 [facility] ([facility]) Age 49 yrs [facility] ([facility]) Non-Aa GFR Laboratory test result [facility] ([facility]) Male GFR Interprentation 20-49 yrs >60 mL/min [...] GFR Laboratory test result [facility] ([facility]) ID Date Data Source [id number] 03/14/2020 12:20:00 PM EST [facility] ([facility]) Name Value Range Interpretation Code Description Data Veronica rce(s) Supporting Document(s) Natriuretic peptide.B prohormone N-Terminal [Mass/volu me] in Serum or Plasma 116 pg/mL 0-125 [facility] ID Date Data Source [id number] 03/14/2020 01:49:00 PM EST [facility] Name Value Range Interpretation Code Description Data Veronica rce(s) Supporting Document(s) BASIC METABOLIC PANEL [facility] BASIC METABOLIC PANEL Sodium [Moles/volume] in Serum or Plasma 142 mEq/L 134 - 153 [facility] Potassium [Moles/volume] in Serum or Plasma 5.1 mEq/L 3.6 - 5.0 H [facility] Chloride [Moles/volume] in Serum or Plasma 105 mEq/L 98 - 107 [facility] Carbon dioxide, total [Moles/volume] in Serum or Plasma 30 MEQ/L 22 - 30 [facility] Glucose [Mass/volume] in Serum or Plasma 99 MG/DL 65 - 110 [facility] BUN 13 MG/DL 7 - 21 [facility] Creatinine [Mass/volume] in Serum or Plasma 1.0 MG/DL 0.7 - 1.5 [facility] BUN/CREAT 13 8 - 27 [facility] al Calcium [Mass/volume] in Serum or Plasma 10.3 MG/DL 8.4 - 10.2 H [facility] Anion gap 3 in Serum or Plasma 7.0 mmol/L 8.0 - 16.0 L [facility] AGE 49 yrs [facility] al AFR AMER GFR >60 mL/min [facility] Ho spital NON-AA GFR >60 mL/min [facility] ital Male GFR Inter prentation 20-49 yrs [...] >32 mL/min Normal ID Date Data Source [id number] 03/14/2020 01:42:00 PM EST [facility] Name Value Range Interpretation Code Description Data Veronica rce(s) Supporting Document(s) BNP 116 PG/ML 0 - 125 [facility] ID Date Data Source [id number] 02/03/2020 04:41:00 PM EDT [facility] Name Value Range Interpretation Code Description Data Veronica rce(s) Supporting Document(s) SARS coronavirus 2 RNA [facility] This lab was ordered by [facility] Kulwinder shane and reported by [facility]. ID Date Data Source [id number] 02/06/2020 08:08:00 AM EDT [facility] Name Value Range Interpretation Code Description Data Veronica rce(s) Supporting Document(s) SARS-CoV-2, GITA Not Detected Not Detected [facility] This nucleic acid amplification test was developed and its performancecharacteristics determined by [facility]. Nucleic acidamplification tests include PCR and [...] in this assay. ID Date Data Source [id number] 10/27/2019 01:19:57 PM EDT [facility] Measurements & CalculationsHeight: 70 [...] rtery diseaseDeep vein thrombosis - ChronicLeg edemaMyocardial lydaaeusirW7Llzogvhax of breathGERDAbdominal painInsomniaADHDAlcohol abuseSubstance abuseSurgical History:cadiac stents V2Lyjqil History:[place] - Male under age 55 (Father)High cholesterol [...] the morning. No other substance use.Sees a [facility] Floor Layer for his CAD and this has been stable for a while.HPI performed by: Guy Morin MD, October 27, 2019 2:44 PMTransitions of Care InboundProblem ReviewProblem List was reviewed and/or updated during this visit.Medication Reconciliation & ReviewMedication List was reviewed and/or updated during this visit, including review of any qwyy-yge-dpcfpwb medications, herbal therapies, and/or supplements.Allergy ReviewAllergy List [...] health is? PoorAssessment & Plan Problems:Assessed:Insomnia, unspecified (HLM08-B50.00) Assessment: Instructions: No response to Trazodone.Will switch [...] Orders:Adult - Ofc Vst, EST, Level III [CPT-97137] Name Value Range Interpretation Code Description Data Veronica rce(s) Supporting Document(s) ID Date Data Source [id number] 09/24/2019 03:56:00 PM EDT [facility] ([facility] ) Name Value Range Interpretation Code Description Data [facility] rce(s) Supporting Document(s) Bacteria identified in Unspecified specimen by Anaerob e culture Laboratory test result [facility] ([facility] ) If anaerobic or aerobic growth is detected within the next 7-21 days, an addendum will follow. . . FULL REPORT IN LAB NOTES ([facility] and [facility]). NO GROWTH ANAEROBICALLY ID Date Data Source [id number] 09/24/2019 03:56:00 PM EDT [facility] ([facility]) Name Value Range Interpretation Code Description Data Veronica rce(s) Supporting Document(s) Gram Stain Laboratory test result [facility] ([facility]) FEW WBCS NO ORGANISMS SEEN Wound Culture Laboratory test result [facility] ([facility]) <content>FULL REPORT IN LAB [...]
<content>CLIDAMYCIN SENSITIVE.</content>
<content></content> ID Date Data Source [id number] 09/24/2019 03:42:00 PM EDT [facility] ([facility]) Name Value Range Interpretation Code Description Data Veronica rce(s) Supporting Document(s) Surgical pathology study Laboratory test result [facility] ([facility]) FINAL DIAGNOSIS Submitted as "index finger, left, [...] MD 09/28/2019 1029 ID Date Data Source [id number] 09/24/2019 09:00:00 AM EDT [facility] ([facility]) Name Value Range Interpretation Code Description Data Veronica rce(s) Supporting Document(s) Laboratory test finding (navigational concept) Laboratory test result [facility] ([facility]) A false negative result [...] pathogens. DISCLAIMER: Testing was performed using the [employer] SARS-CoV-2 test. This test was developed and its performance characteristics determined by [employer]. This test has not been FDA cleared [...] or revoked sooner. ID Date Data Source [id number] 09/24/2019 08:54:00 AM EDT [facility] ([facility]) Name Value Range Interpretation Code Description Data Veronica rce(s) Supporting Document(s) Laboratory test finding (navigational concept) Laboratory test result [facility] ([facility]) ID Date Data Source [id number] 09/21/2019 01:29:45 PM EDT [facility] Measurements & CalculationsHeight: 70 [...] artery diseaseDeep vein thrombosis - ChronicLeg edemaMyocardial ordecxphkbA4Kbvswthcs of breathGERDAbdominal painInsomniaADHDAlcohol abuseSubstance abuseSurgical History:cadiac stents [id number] History:KS - Male under age 55 (Father)High cholesterol [...] during this visit, including review of any yaas-gsc-ernuxwc medications, herbal therapies, and/or supplements.Allergy ReviewAllergy List [...] finger without damage to nail, subsequent encounter (YRO96-Q69.203D) Asses sment: Instructions: Slow to heal.No sign [...] Orders:Adult - Ofc Vst, EST, Level III [CPT-82675] Orthopaedics Consult [CPT-11414] Name Value Range Interpretation Code Description Data Veronica rce(s) Supporting Document(s) ID Date Data Source [id number] 09/17/2019 11:38:00 AM EDT [facility] ([facility]) Name Value Range Interpretation Code Description Data Veronica rce(s) Supporting Document(s) Laboratory test finding (navigational concept) Laboratory test result [facility] ([facility]) ID Date Data Source [id number] 09/17/2019 11:38:00 AM EDT [facility] ([facility]) Name Value Range Interpretation Code Description Data Veronica rce(s) Supporting Document(s) Bilirubin.direct [Mass/volume] in Serum or Plasma 0.08 mg/dL 0.00-0.4 0 [facility] ([facility]) Bilirubin.total [Mass/volume] in Serum or Plasma Laboratory test result 0.0-1.2 [facility] ([facility]) Bilirubin.indirect [Mass/volume] in Serum or Plasma Laborato ry test result 0.10-0.80 [facility] ([facility]) ID Date Data Source [id number] 09/17/2019 11:38:00 AM EDT [facility] ([facility]) Name Value Range Interpretation Code Description Data Veronica rce(s) Supporting Document(s) Glucose 109 mg/dL 65-99 [facility] ([facility]) eGFR If NonAfricn Am 73 mL/min/1.73 [facility] ([facility]) Creatinine 1.16 mg/dL 0.76-1.27 [facility] ([facility]) Urea nitrogen [Mass/volume] in Serum or Plasma 21 mg/dL 6-24 [facility] ([facility]) eGFR If Africn Am 84 mL/min/1.73 [facility] ([facility]) Urea nitrogen/Creatinine [Mass Ratio] in Serum or Plasma 18 9 -20 [facility] ([facility]) Sodium 140 mmol/L 134-144 [facility] ([facility]) Carbon dioxide, total [Moles/volume] in Serum or Plasma 20 mmol/L 20 -29 [facility] ([facility]) Potassium [Moles/volume] in Serum or Plasma 5.2 mmol/L 3.5-5.2 [facility] ([facility]) Chloride [Moles/volume] in Serum or Plasma 105 mmol/L 96-106 [facility] ([facility]) Calcium [Mass/volume] in Serum or Plasma 9.8 mg/dL 8.7-10.2 [facility] ([facility]) Albumin [Mass/volume] in Serum or Plasma 4.5 g/dL 3.8-4.9 [facility] ([facility]) Phosphate [Moles/volume] in Serum or Plasma 3.5 mg/dL 2.8-4.1 [facility] ([facility]) ID Date Data Source [id number] 09/17/2019 11:38:00 AM EDT [facility] ([facility]) Name Value Range Interpretation Code Description Data Veronica rce(s) Supporting Document(s) Natriuretic peptide.B prohormone N-Terminal [Mass/volu me] in Serum or Plasma 153 pg/mL 0-121 [facility] ([facility]) <content>The following cut-points have b een suggested for the</content>
<content>use of proBNP for the diagnostic evaluation of heart</content>
<content>failure (HF) in patients with acute dy spnea:</content>
<content>Modality Age Optimal Cut</content>
<content>(years) Point</content>
<content> ---</content>
<content>Diagnosis (rule in HF) <50 450 pg/mL</content>
<content>50 - 75 900 pg/mL</content>
<content>>75 1800 pg/mL</content>
<content> Exclusion (rule out HF) Age independent 300 pg/mL</content>
<content></content> ID Date Data Source [id number] 09/18/2019 08:06:00 AM EDT [facility] Name Value [...] g/dL 3.8-4.9 [facility] ID Date Data Source [id number] 09/19/2019 06:05:00 AM EDT [facility] Name Value [...] independent 300 pg/mL ID Date Data Source [id number] 09/18/2019 08:06:00 AM EDT [facility] Name Value Range Interpretation Code Description Data Veronica rce(s) Supporting Document(s) Bilirubin, Total 0.0-1.2 [facility] Bilirubin, Direct 0.08 mg/dL 0.00-0.40 [facility] Bilirubin, Indirect 0.10-0.80 [facility] ID Date Data Source [id number] 09/13/2019 01:37:00 PM EDT [facility] 1 OrderSheet [facility] Emergency Department [address] [place] [address] Phone #: ext- [phone] 09/13/2019 13:33 Patient: WEN BERG Sex: M [...] rce(s) Supporting Document(s) ID Date Data Source [id number] 09/13/2019 01:37:00 PM EDT [facility] 1 Medication Reconciliation Report [facility] Emergency Department [address] [place] [address] Phone #: ext- [phone] 09/13/2019 13:33 Patient: WEN BERG Sex: M : 1970 Age: 49yWeight: 108.8 kgHeight/Length: 70 in.BMI: 34.4ALLERGIES: NoneThe patient's Home Medications are listed below:CONTINUE TAKING THE FOLLOWING MEDICATIONS: Aspirin Oral 81 mg Atorvastatin Calcium Oral 40 mg, daily Carvedilol Phosphate ER Oral 6.25, 2x a day Chantix Starting Month Oral Clopidogrel Bisulfate Oral 75 mg, daily Intresto [facility] Levothyroxine Sodium Oral 100 mcg Lisinopril Oral 5 mg, daily, unknown dose Melatonin 10mg Nitro 0.4mg SLThe source(s) of the original Home Medication information:patientThe following Medications were given to the patient in the Emergency Department:Clindamycin [PO] PO 300 mg, administered: 09/13/2019 2:15:00 PM 2 Medication Reconciliation Report [facility] Emergency Department [address] [place] [address] Phone #: ext- [phone] 09/13/2019 13:33 Patient: WEN BERG Sex: M : 1970 Age: 49yRocephin [IM] IM 1 gm, administered: 09/13/2019 2:15:00 PMThe following Medications were prescribed to the patient:clindamycin HCl 300 mg capsule Take 1 capsule four times a day for 10 days -- Dispense 40 capsule.Refills: 0. Substitution permitted.[facility] [address] [place], [place] [id number]. .Keflex 500 mg capsule Take 1 capsule three times a day as directed for 10 days -- Dispense 30capsule. Refills: 0. Substitution permitted.[facility] - [address], [place] [id number]. . -- ANGEL Esparza Name Value Range Interpretation Code Description Data Veronica rce(s) Supporting Document(s) ID Date Data Source [id number] 09/13/2019 01:37:00 PM EDT [facility] 1 Medication Administration Record [facility] Emergency Department [address] [place] [address] Phone #: ext- [phone] 09/13/2019 13:33 Patient: [...] rce(s) Supporting Document(s) ID Date Data Source [id number] 09/13/2019 01:37:00 PM EDT [facility] 1 General Instructions [facility] Emergency Department [address] [place] [address] Phone #: ext- [phone] 09/13/2019 13:33 Patient: [...] Oral.Clopidogrel Bisulfate Oral : 75 mg daily.Intresto *.[facility]*.Levothyroxine Sodium Oral : 100 mcg.Lisinopril Oral : 5 mg daily, unknown dose.Melatonin 10mg*.Nitro 0.4mg SL*.Prescription Medications:clindamycin HCl 300 mg capsule Take 1 capsule four times a day for 10 days -- Dispense 40 capsule.Refills: 0. Substitution permitted.Pharmacy - [facility] [address], [place] [id number]. .Keflex 500 mg capsule Take 1 capsule three times a day as directed for 10 days -- Dispense 30capsule. Refills: 0. Substitution permitted.[facility] [address], [place] [id number]. . 2 General Instructions [facility] Emergency Department [address] [place] [address] Phone #: ext- [phone] 09/13/2019 13:33 Patient: WEN BERGN: [id number] Sex: M : 1970 Age: 49yFollow-up:Follow up [...] heals or your provider 3 General Instructions [facility] Emergency Department [address] [place] [address] Phone #: ext- [phone] 09/13/2019 13:33 Patient: WEN BERG Sex: M : 1970 Age: 49y tells [...] wound Decreased movement around the injured area [id number] [employer]. [address] [place] [address]. All rights reserved. This information is not intended as asubstitute for professional medical care. Always follow your healthcare professional's instructions. You have been given the following additional information: Laceration, Old: Not Sutured(Electronically signed by ANGEL Esparza 09/13/2019 21:24) Name Value Range Interpretation Code Description Data Veronica rce(s) Supporting Document(s) ID Date Data Source [id number] 09/13/2019 01:37:00 PM EDT [facility] 1 Clinical Report - Nurses [facility] Emergency Department [address] [place] [address] Phone #: ext- [phone] 09/13/2019 13:33 Patient: WEN BERG Sex: M : 1970 Age: 49yTRIAGEArrived by [...] had swelling and redness. No feveror numbness.Treatment INSIDE SALES PERSON:None. --13:43 09/13/19 Yolis Benton R.N.13:36 09/13/19. BP: [...] (unknown dose). --13:40 09/13/19 Yolis Benton R.N. [facility]. --13:41 09/13/19 Yolis Benton R.N. Carvedilol Phosphate [...] Benton R.N. 2 Clinical Report - Nurses [facility] Emergency Department [address] [place] [address] Phone #: ext- [phone] 09/13/2019 13:33 [id number] Sex: M : 1970 Age: 49y Medication/allergy [...] Benton R.N. 3 Clinical Report - Nurses [facility] Emergency Department [address] [place] [address] Phone #: ext- [phone] 09/13/2019 13:33 Patient: WEN BERG [facility]#: [id number] Sex: M : 1970 Age: 49y Extremity [...] Patient verbalized understanding. Written instructions provided in [place]. The patient was discharged by the physician radiology practitioner assistant. He was discharged home and unaccompanied [...] rce(s) Supporting Document(s) ID Date Data Source [id number] 09/13/2019 01:37:00 PM EDT [facility] 1 Clinical Report - Physicians/Mid Levels [facility] Emergency Department [address] [place] [address] Phone #: ext- [phone] 09/13/2019 13:33 Patient: [...] Phosphate ER Oral 6.25, 2x a day. [facility]. Lisinopril Oral 5 mg, daily (unknown dose). Levothyroxine Sodium Oral 100 mcg. Aspirin Oral 81 mg. Allerg ies: None.SOCIAL HISTORYCurrent every day smoker (cigarette). Occasional alcohol use. No drug use. 2 Clinical Report - Physicians/Mid Levels [facility] Emergency Department [address] [place] [address] Phone #: ext- [phone] 09/13/2019 13:33 Patient: WEN BERG Sex: M [...] possible 3 Clinical Report - Physicians/Mid Levels [facility] Emergency Department [address] [place] [address] Phone #: ext- [phone] 09/13/2019 13:33 Patient: [...] Oral : 75 mg daily. Intresto *. [email or web address] [facility]*. Levothyroxine Sodium Oral : 100 mcg. Lisinopril Oral : 5 mg daily, unknown dose. Melatonin 10mg*. Nitro 0.4mg SL*. Prescription Medications: clindamycin HCl 300 mg capsule Take 1 capsule four times a day for 10 days -- Dispense 40 capsule. Refills: 0. Substitution permitted. [facility] [address] [place], [place] [id number]. . Keflex 500 mg capsule Take 1 capsule three times a day as directed for 10 days -- Dispense 30 capsule. Refills: 0. Substitution permitted. [facility] [address], [place] [phone]. . Follow-up: Follow up with doctor Here in the ED tomorrow. Reason for referral: evaluation and treatment. Summary of care provided to patient. Understanding of the discharge instructions verbalized by patient.(Electronically signed by ANGEL Esparza 09/13/2019 21:24) 4Clinical Report - Physicians/Mid Levels [facility] Emergency Department [address] [place] [address] Phone #: ext- [phone] 09/13/2019 13:33 Patient: WEN BERG Sex: M : 1970 Age: 49y Name Value Range Interpretation Code Description Data Veronica rce(s) Supporting Document(s) ID Date Data Source [id number] 07/15/2019 09:20:29 AM EDT [facility] Measurements & CalculationsHeight: 70 [...] or Preferred Language: EnglishFamily and Home Address: [address] [place] [address] Dr Pat[address] [place] [address] What is your housing situation today? I [...] really needed? Denies Insecurity: food, utilities, clothing, children's ministries director, phone, legal services, otherWithin the past year [...] 2 nights in a row in a [place]f, [place], fpc center or juvenile correctional facility? No Has [...] you a refugee? No (Country of origin: [place]) Do you feel physically and emotionally safe [...] use (e.g. memory loss, hepatitis, convulsions, bleeding)? Kiesha's Results: DAST Score: 4 DAST Interpretation: Brief Treatment Performed by: Julius Moe MA, July 15, 2019 9:28 AMPatient History Medical History:High cholesterolHypert ensionHypothyroidismObesityCongestive heart failureCoronary artery diseaseDeep vein thrombosis - ChronicLeg edemaMyocardial nioqddtthuP1Qwnmjrhen of breathGERDAbdominal painInsomniaADHDAlcohol abuseSubstance abuseSurgical History:cadiac stents N8Cddngc History:[place] - Male under age 55 (Father)High cholesterol [...] pt would like a refferal for a medical logistics specialist. DO will send in refferal. pt states [...] during this visit, including review of any wsxv-snj-cmaszht medications, herbal therapies, and/or supplements.Allergy ReviewAllergy List [...] & Plan Problems:Added: Atherosclerotic heart disease of [place] coronary artery with other forms of angina pectoris (ICD-414.01) (GVP73-C17.118)Nicotine dependence, cigarettes, uncomplicated (MZL07-Q53.210)Benign lipomatous neoplasm of kidney (UGQ67-L68.71)Insomnia, unspecified (VOL77-M32.00)Medications:NITROGLY CERIN 0.4 MG SUBLINGUAL TABLET SUBLINGUALCHANTIX STARTING [...] Orders:Adult - Ofc Vst, EST, Level IV [CPT-67730] Adult - Ofc Vst, NEW, Level IV [CPT-90095] Cardiology Consult [CPT-40827] COMP METABOLIC PANEL [CPT-82039] CBC W/DIFF [CPT-43962] HgBA1c [CPT-44363] LIPID PANEL [CPT-45381] TSH [CPT-82478] Vitamin D 250H Unspecified [CPT-49619] Medications:NITROGLYCERIN 0.4 MG SUBLINGUAL TABLET SUBLINGUAL (NITROGLYCERIN) one pill nder tongue for CP #25[Tablet] x 5 Route:SUBLINGUAL Entered and Authorized by: Abimael Donnelly DO Method used: Electronically to [facility] (retail) [address] [place] [address] Note to Pharmacy: Route: SUBLINGUAL; RxID: [id number] BISULFATE 75 MG ORAL TABLET (CLOPIDOGREL BISULFATE) one tablet po QD #90[Tablet] x 1 Route:ORAL Entered and Authorized by: Abimael Donnelly DO Method used: Electronically to [facility] (retail) [address] [place] [address] Note to Pharmacy: Route: ORAL; RxID: [id number] STARTING MONTH RYDER 0.5 MG X 11 & 1 MG X 42 ORAL TABLET (VARENICLINE TARTRATE) as dir #1[Packet] x 1 Route:ORAL Entered and Authorized by: Abimael Donnelly DO Method used: Electronically to [facility] (retail) [address] [place] [address] Note to Pharmacy: Route: ORAL; RxID: [id number] MELATONIN 10 MG ORAL CAPSULE (MELATONIN) one tab po qhs for sleep #90[Capsule] x 1 Route:ORAL Entered and Authorized by: Abimael Donnelly DO Method used: Electronically to [facility] (retail) [address] [place] [address] Note to Pharmacy: Route: ORAL; RxID: [id number] CALCIUM 40 MG ORAL TABLET (ATORVASTATIN CALCIUM) one tab po QD #90[Tablet] x 1 Route:ORAL Entered and Authorized by: Abimael Donnelly DO Method used: Electronically to [facility] (retail) [address] [place] [address] Note to Pharmacy: Route: ORAL; RxID: [id number] 100 MCG ORAL TABLET (LEVOTHYROXINE SODIUM) one tab po QD #90[Tablet] x 1 Route:ORAL Entered and Authorized by: Abimael Donnelly DO Method used: Electronically to [facility] (retail) [address] [place] [address] Note to Pharmacy: Route: ORAL; RxID: [id number] 5 MG ORAL TABLET (LISINOPRIL) one tab po QD #90[Tablet] x 1 Route:ORAL Entered and Authorized by: Abimael Donnelly DO Method used: Electronically to [facility] (retail) [address] [place] [address] Note to Pharmacy: Route: ORAL; RxID: [id number] 81 MG ORAL TABLET CHEWABLE (ASPIRIN) one tab po QD #90[Tablet] x 1 Route:ORAL Entered and Authorized by: Abimael Donnelly DO Method used: Electronically to [facility] (retail) [address] [place] [address] Note to Pharmacy: Route: ORAL; RxID: [id number] BISULFATE 75 MG ORAL TABLET (CLOPIDOGREL BISULFATE) one tablet po QD #90[Tablet] x 1 Route:ORAL Entered and Authorized by: Abimael Donnelly DO Method used: Electronically to [facility] (retail) [address] [place], [place] [id number] Note to Pharmacy: Route: ORAL; RxID: [id number] BISULFATE 75 MG ORAL TABLET (CLOPIDOGREL BISULFATE) one tablet po QD #90 x 1 Route:ORAL Entered and Authorized by: Abimael Donnelly DO Method used: Print then Give to Patient Note to Pharmacy: Route: ORAL; RxID: [id number] Administered/Entered:Vaccination Group: InfluenzaSeries: 1 NOT GIVENVaccination: Flucelvax Quadrivalent PF (4y+) AdultReason Not Given: Patient decisionEntered Date: 07/15/2019 12:00 AMComments: PT refusedEntered by: Julius Moe MA Name Value Range Interpretation Code Description Data Veronica rce(s) Supporting Document(s) Procedure Vital Signs ID Date Data Source UNK Name Value Range Interpretation Code Description Data Source(s) Diastolic blood pressure--sitting 114 mm[Hg] 11 4 mm[Hg] [facility] ([facility]) Omron, large cuff/Ra Systolic blood pressure--sitting 153 mm[Hg] 153 mm[Hg] [facility] ([facility] Omron, large cuff/Ra Heart rate 82 /min 82 /min [facility] ([facility]) Body mass index (BMI) [Ratio] 35.4 kg/m2 35.4 k g/m2 [facility] ([facility]) Body height 70 [in_i] 70 [in_i] [facility] 5'10" Body weight 247.00 [lb_av] 247.00 [lb_av] [facility] ([facility]) Diastolic blood pressure--sitting 101 mm[Hg] 10 1 mm[Hg] [facility] ([facility]) Omron large cuff, Ra Systolic blood pressure--sitting 130 mm[Hg] 130 mm[Hg] [facility] ([facility]) Omron large cuff, Ra Heart rate 84 /min 84 /min [facility] Body mass index (BMI) [Ratio] 32.6 kg/m2 32.6 k g/m2 [facility] ([facility]) Body height 70 [in_i] 70 [in_i] [facility] ([facility]) 5'10" Body weight 227.00 [lb_av] 227.00 [lb_av] [facility] ([facility]) Diastolic blood pressure--sitting 118 mm[Hg] 11 8 mm[Hg] [facility] ([facility]) Omron, large cuff/Ra Systolic blood pressure--sitting 162 mm[Hg] 162 mm[Hg] [facility] ([facility]) Omron, large cuff/Ra Heart rate 71 /min 71 /min [facility] Body mass index (BMI) [Ratio] 32.9 kg/m2 32.9 k g/m2 [facility] ([facility]) Body height 70 [in_i] 70 [in_i] [facility] ([facility] 5'10" Body weight 229.00 [lb_av] 229.00 [lb_av] [facility] T ([facility]) Diastolic blood pressure--sitting 120 mm[Hg] 12 0 mm[Hg] [facility] ([facility]) Omron large cuff, Ra Systolic blood pressure--sitting 171 mm[Hg] 171 mm[Hg] [facility] ([facility]) Omron large cuff, Ra Heart rate 71 /min 71 /min [facility] ([facility]) Body mass index (BMI) [Ratio] 34.0 kg/m2 34.0 k g/m2 [facility] ([facility]) Body height 70 [in_i] 70 [in_i] [facility] ([facility] 5'10" Body weight 237.00 [lb_av] 237.00 [lb_av] [facility] T ([facility]) Body mass index (BMI) [Ratio] 33.0 kg/m2 33.0 k g/m2 [facility] ([facility]) Body weight 230.00 [lb_av] 230.00 [lb_av] [facility] T ([facility]) Body height 70 [in_i] 70 [in_i] [facility] ([facility]) 5'10" Body temperature 99.0 [degF] 99.0 [degF] [facility] ([facility] [facility]) Diastolic blood pressure--sitting 117 mm[Hg] 11 7 mm[Hg] MED[facility] ([facility]) [place] adult cuff, [place] Systolic blood pressure--sitting 170 mm[Hg] 170 mm[Hg] MEDENT ([facility]) [place] adult cuff, [place] Heart rate 74 /min 74 /min MEDENT ([facility]) Body mass index (BMI) [Ratio] 32.7 kg/m2 32.7 k g/m2 [facility] ([facility]) Body height 70 [in_i] 70 [in_i] MEDENT ([facility]) 5'10" Body weight 228.00 [lb_av] 228.00 [lb_av] MEDEN T ([facility]) Diastolic blood pressure--sitting 104 mm[Hg] 10 4 mm[Hg] MEDENT ([facility]) [place] large cuff, [place] Systolic blood pressure--sitting 149 mm[Hg] 149 mm[Hg] MEDENT ([facility]) [place] large cuff, Ra Heart rate 76 /min 76 /min MEDESTELA ([facility]) Body mass index (BMI) [Ratio] 30.4 kg/m2 30.4 k g/m2 MEDESTELA ([facility]) Body height 70 [in_i] 70 [in_i] MEDESTELA ([facility]) 5'10" Body weight 212.00 [lb_av] 212.00 [lb_av] JOSY T ([facility])
[2020-05-22 03:37] LABS: ACETAMINOPHEN LEVEL < 2.0 UG/ML (10.0-30.0); ALBUMIN 4.3 GM/DL (3.2-5.2); ALT/SGPT 31 U/L (12-78); BILIRUBIN,DIRECT 0.2 MG/DL (0.0-0.2); BILIRUBIN,TOTAL 0.8 MG/DL (0.2-1.0); BLOOD UREA NITROGEN 27 MG/DL (7-18); CALCIUM LEVEL 9.5 MG/DL (8.5-10.1); CARBON DIOXIDE LEVEL 29 MEQ/L (21-32); CHLORIDE LEVEL 103 MEQ/L (98-107); CREATININE FOR GFR 1.23 MG/DL (0.70-1.30); ETHYL ALCOHOL (ETHANOL) < 0.003 % (0.000-0.010); GLOMERULAR FILTRATION RATE > 60.0 (>56); GLUCOSE, FASTING 101 MG/DL (70-100); POTASSIUM SERUM 3.6 MEQ/L (3.5-5.1); SALICYLATE LEVEL 3.4 MG/DL (5.0-30.0); SODIUM LEVEL 140 MEQ/L (136-145); TOTAL PROTEIN 7.4 GM/DL (6.4-8.2)
[2020-05-22 05:44] VITALS: BP 147/96
== END 2020-05-22 05:46 | disposition home or self-care (01) ==
LOC: M ED 01:58
DX: F43.0 Acute stress reaction (principal); F32.9 Major depressive disorder, single episode, unspecified; F17.200 Nicotine dependence, unspecified, uncomplicated
CPT/HCPCS: 36415; 80048; 80076; 80307; 84443; 85027; 99284; G0480

== ENCOUNTER 2022-01-26 09:11 | Inpatient (IN) | payer OTHER ==
[~2022-01-26] VITALS: Ht 177.8 cm; Wt 105.1 kg
[~2022-01-26 09:11] MED LIST changes: +CLIN-250 PO; -CLIN300C6 PO; +CLOPIDOGREL 75 MG TAB PO SCH; -LISI-542 PO; +LISI5TAB11 PO; +LOSA100T45 PO; -LOSA100T50 PO; +SERO50TA PO
[2022-01-26] MEDS ORDERED: APIXABAN 5 MG TAB (ELIQUIS) PO ONE (09:50)
[2022-01-26] MEDS ORDERED: cloNIDine 0.1MG TABLET PO ONE (09:50)
[2022-01-26] MEDS ORDERED: FUROSEMIDE 40 MG TAB PO ONE (09:55)
[2022-01-26] MEDS ORDERED: FUROSEMIDE 40MG/4ML VIAL (J1940) IV ONE (10:35)
[2022-01-26] MEDS ORDERED: LIDOCAINE 2% 5ML JELLY UROJET TOP ONE (10:40)
[2022-01-26 10:54] LABS: BASO % 0.2 % (0.0-1.0); EOS % 0.1 % (0.0-3.0); HEMATOCRIT 41.4 % (42.0-52.0); HEMOGLOBIN 12.7 g/dl (13.5-17.5); LYMPH # 1.4 10^3/uL (1.5-5.0); LYMPH % 12.7 % (24.0-44.0); MEAN CORPUSCULAR HEMOGLOBIN 25.3 pg (27.0-33.0); MEAN CORPUSCULAR HGB CONC 30.7 g/dl (32.0-36.5); MEAN CORPUSCULAR VOLUME 82.6 fl (80.0-96.0); MONO % 13.6 % (2.0-8.0); NEUTROPHILS # 8.1 10^3/uL (1.5-8.5); NEUTROPHILS % 72.7 % (36.0-66.0); PLATELET COUNT, AUTOMATED 163 10^3/uL (150-450); RED BLOOD COUNT 5.01 10^6/uL (4.30-6.10); WHITE BLOOD COUNT 11.2 10^3/uL (4.0-10.0)
[2022-01-26 11:39] LABS: MONO # 1.5 10^3/uL (0.0-0.8)
[2022-01-26 11:43] LABS: ALBUMIN 2.9 GM/DL (3.2-5.2); ALT/SGPT 207 U/L (12-78); BILIRUBIN,DIRECT 0.4 MG/DL (0.0-0.2); BILIRUBIN,TOTAL 1.4 MG/DL (0.2-1.0); BLOOD UREA NITROGEN 35 MG/DL (7-18); CALCIUM LEVEL 9.4 MG/DL (8.5-10.1); CARBON DIOXIDE LEVEL 18 MEQ/L (21-32); CHLORIDE LEVEL 101 MEQ/L (98-107); CREATININE FOR GFR 1.32 MG/DL (0.70-1.30); GLOMERULAR FILTRATION RATE > 60.0 (>56); GLUCOSE, FASTING 93 MG/DL (70-100); NT-PRO BNP 15317 PG/ML (<125); POTASSIUM SERUM 6.3 MEQ/L (3.5-5.1); SODIUM LEVEL 130 MEQ/L (136-145); TOTAL PROTEIN 7.4 GM/DL (6.4-8.2)
[2022-01-26] MEDS ORDERED: LIDOCAINE 1% MDV 20ML VIAL As Ordered ONE (12:40)
[2022-01-26] MEDS ORDERED: PANT20TA6 PO (14:10)
[2022-01-26] MEDS ORDERED: ALBU8.5H INH (14:10)
[2022-01-26] MEDS ORDERED: ELIQ5TAB PO (14:10)
[2022-01-26] MEDS ORDERED: CLON-412 PO (14:10)
[2022-01-26] MEDS ORDERED: HOME MED LIST COMPLETE! XX SCH (14:15)
[2022-01-26] MEDS ORDERED: FUROSEMIDE 40MG/4ML VIAL (J1940) IV SCH ×2 (15:00→21:00)
[2022-01-26 18:18] VITALS: BP 140/86
[2022-01-26] MEDS ORDERED: SODIUM CHLORIDE 0.9% INJ 10 ML SYR IV PRN (18:45)
[2022-01-26] MEDS: SODIUM CHLORIDE 0.9% INJ 10 ML SYR IV SCH (18:45)
[2022-01-26 20:29] VITALS: BP 152/90
[2022-01-26] MEDS ORDERED: PANTOPRAZOLE 20 MG TAB PO SCH (21:00)
[2022-01-26] MEDS: CARVedilol 6.25 MG TAB PO SCH (21:00)
[2022-01-26] MEDS: cloNIDine 0.1MG TABLET PO SCH (21:00)
[2022-01-26] MEDS: QUEtiapine FUMARATE 50MG TAB PO SCH (22:00)
[2022-01-26] MEDS: PANTOPRAZOLE 20 MG TAB PO SCH (22:01)
[2022-01-26] MEDS: APIXABAN 5 MG TAB (ELIQUIS) PO SCH (22:02)
[2022-01-26 23:35] VITALS: BP 149/92
[2022-01-27 04:00] VITALS: BP 103/76
[2022-01-27] MEDS: LEVOTHYROXINE 100MCG TABLET (0.1MG) PO SCH (05:55)
[2022-01-27 07:53] VITALS: BP 117/83
[2022-01-27] MEDS ORDERED: FUROSEMIDE 40MG/4ML VIAL (J1940) IV SCH (09:00)
[2022-01-27] MEDS: ASPIRIN 81MG ENTERIC TABLET PO SCH (10:00)
[2022-01-27] MEDS: ATORVASTATIN 20 MG TAB PO SCH (10:00)
[2022-01-27] MEDS: CARVedilol 6.25 MG TAB PO SCH ×2 (10:01→20:49)
[2022-01-27] MEDS: cloNIDine 0.1MG TABLET PO SCH ×2 (10:01→20:49)
[2022-01-27] MEDS: APIXABAN 5 MG TAB (ELIQUIS) PO SCH ×2 (10:01→20:50)
[2022-01-27 10:31] LABS: BASO % 0.1 % (0.0-1.0); EOS # 0.1 10^3/uL (0.0-0.5); EOS % 0.5 % (0.0-3.0); HEMATOCRIT 39.5 % (42.0-52.0); HEMOGLOBIN 11.8 g/dl (13.5-17.5); LYMPH # 1.7 10^3/uL (1.5-5.0); LYMPH % 14.2 % (24.0-44.0); MEAN CORPUSCULAR HEMOGLOBIN 24.7 pg (27.0-33.0); MEAN CORPUSCULAR HGB CONC 29.9 g/dl (32.0-36.5); MEAN CORPUSCULAR VOLUME 82.6 fl (80.0-96.0); MONO # 1.3 10^3/uL (0.0-0.8); MONO % 10.6 % (2.0-8.0); NEUTROPHILS # 8.8 10^3/uL (1.5-8.5); NEUTROPHILS % 74.1 % (36.0-66.0); PLATELET COUNT, AUTOMATED 132 10^3/uL (150-450); RED BLOOD COUNT 4.78 10^6/uL (4.30-6.10); WHITE BLOOD COUNT 11.9 10^3/uL (4.0-10.0)
[2022-01-27 10:57] LABS: BLOOD UREA NITROGEN 36 MG/DL (7-18); CALCIUM LEVEL 8.8 MG/DL (8.5-10.1); CARBON DIOXIDE LEVEL 27 MEQ/L (21-32); CHLORIDE LEVEL 105 MEQ/L (98-107); CREATININE FOR GFR 1.19 MG/DL (0.70-1.30); GLOMERULAR FILTRATION RATE > 60.0 (>56); GLUCOSE, FASTING 124 MG/DL (70-100); MAGNESIUM LEVEL 1.9 MG/DL (1.8-2.4); POTASSIUM SERUM 3.9 MEQ/L (3.5-5.1); SODIUM LEVEL 138 MEQ/L (136-145)
[2022-01-27 12:00] VITALS: BP 131/81
[2022-01-27] MEDS: POTASSIUM CHLORIDE 10MEQ SR TABLET PO SCH ×2 (13:14→20:50)
[2022-01-27 15:11] LABS: ALBUMIN 2.5 GM/DL (3.2-5.2); ALT/SGPT 210 U/L (12-78); BILIRUBIN,DIRECT 0.7 MG/DL (0.0-0.2); BILIRUBIN,TOTAL 1.2 MG/DL (0.2-1.0); NT-PRO BNP 10507 PG/ML (<125)
[2022-01-27] MEDS ORDERED: FUROSEMIDE 40MG/4ML VIAL (J1940) IV ONE ×2 (16:00→22:00)
[2022-01-27 16:41] VITALS: BP 132/94
[2022-01-27] MEDS ORDERED: KETOROLAC 30 MG/ML 1ML VIAL IV ONE (17:00)
[2022-01-27] MEDS: SODIUM CHLORIDE 0.9% INJ 10 ML SYR IV SCH (17:24)
[2022-01-27 19:47] VITALS: BP 131/93
[2022-01-27] MEDS: QUEtiapine FUMARATE 50MG TAB PO SCH (20:48)
[2022-01-27] MEDS: PANTOPRAZOLE 20 MG TAB PO SCH (20:49)
[2022-01-28] VITALS (7 sets, daily range): BP systolic 120–149; BP diastolic 78–102
[2022-01-28] MEDS ORDERED: diphenhydrAMINE 25MG CAP PO ONE
[2022-01-28] MEDS: LEVOTHYROXINE 100MCG TABLET (0.1MG) PO SCH (05:30)
[2022-01-28 05:55] LABS: HEMOGLOBIN 11.3 g/dl (13.5-17.5); RED BLOOD COUNT 4.59 10^6/uL (4.30-6.10); WHITE BLOOD COUNT 11.6 10^3/uL (4.0-10.0)
[2022-01-28 05:56] LABS: BASO % 0.2 % (0.0-1.0); EOS # 0.1 10^3/uL (0.0-0.5); EOS % 1.1 % (0.0-3.0); HEMATOCRIT 38.5 % (42.0-52.0); LYMPH # 1.7 10^3/uL (1.5-5.0); LYMPH % 14.6 % (24.0-44.0); MEAN CORPUSCULAR HEMOGLOBIN 24.6 pg (27.0-33.0); MEAN CORPUSCULAR HGB CONC 29.4 g/dl (32.0-36.5); MEAN CORPUSCULAR VOLUME 83.9 fl (80.0-96.0); MONO # 1.1 10^3/uL (0.0-0.8); MONO % 9.3 % (2.0-8.0); NEUTROPHILS # 8.6 10^3/uL (1.5-8.5); NEUTROPHILS % 74.2 % (36.0-66.0); PLATELET COUNT, AUTOMATED 131 10^3/uL (150-450)
[2022-01-28 06:30] LABS: BLOOD UREA NITROGEN 38 MG/DL (7-18); CALCIUM LEVEL 8.1 MG/DL (8.5-10.1); CARBON DIOXIDE LEVEL 28 MEQ/L (21-32); CHLORIDE LEVEL 106 MEQ/L (98-107); CREATININE FOR GFR 1.23 MG/DL (0.70-1.30); GLOMERULAR FILTRATION RATE > 60.0 (>56); GLUCOSE, FASTING 112 MG/DL (70-100); MAGNESIUM LEVEL 1.8 MG/DL (1.8-2.4); POTASSIUM SERUM 3.5 MEQ/L (3.5-5.1); SODIUM LEVEL 139 MEQ/L (136-145)
[2022-01-28] MEDS: ATORVASTATIN 20 MG TAB PO SCH (08:36)
[2022-01-28] MEDS: CARVedilol 6.25 MG TAB PO SCH ×2 (08:36→21:05)
[2022-01-28] MEDS: cloNIDine 0.1MG TABLET PO SCH ×2 (08:36→21:05)
[2022-01-28] MEDS: APIXABAN 5 MG TAB (ELIQUIS) PO SCH ×2 (08:36→21:05)
[2022-01-28] MEDS: ASPIRIN 81MG ENTERIC TABLET PO SCH (08:36)
[2022-01-28] MEDS: POTASSIUM CHLORIDE 10MEQ SR TABLET PO SCH ×2 (08:36→21:05)
[2022-01-28 08:53] LABS: ALBUMIN 2.2 GM/DL (3.2-5.2); ALT/SGPT 157 U/L (12-78); BILIRUBIN,DIRECT 0.5 MG/DL (0.0-0.2); BILIRUBIN,TOTAL 0.9 MG/DL (0.2-1.0); NT-PRO BNP 6530 PG/ML (<125); TOTAL PROTEIN 5.9 GM/DL (6.4-8.2)
[2022-01-28] MEDS: FUROSEMIDE 40MG/4ML VIAL (J1940) IV SCH ×2 (12:35→23:39)
[2022-01-28 14:41] LABS: ABG BASE EXCESS -1.1 (-2.0-2.0); ABG HCO3 22.4 MEQ/L (22.0-26.0); ABG O2 SATURATION 96.7 % (95.0-99.0); ABG PARTIAL PRESSURE CO2 33.6 mmHg (35.0-45.0); ABG PARTIAL PRESSURE O2 84.9 mmHg (75.0-100.0); ABG STANDARD HCO3 23.6 MEQ/L (22.0-26.0); ABG TOTAL CO2 23.4 MEQ/L (22.0-29.0); ABG pH (ARTERIAL) 7.442 UNITS (7.350-7.450)
[2022-01-28] MEDS: SODIUM CHLORIDE 0.9% INJ 10 ML SYR IV SCH (17:54)
[2022-01-28] MEDS: QUEtiapine FUMARATE 50MG TAB PO SCH (21:05)
[2022-01-28] MEDS: PANTOPRAZOLE 20 MG TAB PO SCH (21:05)
[2022-01-28] MEDS: oxyCODONE 5MG TAB PO PRN (21:22)
[2022-01-29 04:30] VITALS: BP 123/88
[2022-01-29] MEDS ORDERED: oxyCODONE 5MG TAB PO ONE (05:00)
[2022-01-29] MEDS: LEVOTHYROXINE 100MCG TABLET (0.1MG) PO SCH (06:24)
[2022-01-29 06:50] LABS: BASO % 0.3 % (0.0-1.0); EOS # 0.1 10^3/uL (0.0-0.5); EOS % 1.2 % (0.0-3.0); HEMATOCRIT 39.4 % (42.0-52.0); HEMOGLOBIN 11.8 g/dl (13.5-17.5); LYMPH # 1.8 10^3/uL (1.5-5.0); LYMPH % 15.4 % (24.0-44.0); MEAN CORPUSCULAR HEMOGLOBIN 25.1 pg (27.0-33.0); MEAN CORPUSCULAR HGB CONC 29.9 g/dl (32.0-36.5); MEAN CORPUSCULAR VOLUME 83.7 fl (80.0-96.0); MONO # 1.2 10^3/uL (0.0-0.8); MONO % 10.7 % (2.0-8.0); NEUTROPHILS # 8.3 10^3/uL (1.5-8.5); NEUTROPHILS % 71.5 % (36.0-66.0); PLATELET COUNT, AUTOMATED 169 10^3/uL (150-450); RED BLOOD COUNT 4.71 10^6/uL (4.30-6.10); WHITE BLOOD COUNT 11.6 10^3/uL (4.0-10.0)
[2022-01-29 07:20] LABS: ALBUMIN 2.3 GM/DL (3.2-5.2); ALT/SGPT 125 U/L (12-78); BILIRUBIN,DIRECT 0.5 MG/DL (0.0-0.2); BILIRUBIN,TOTAL 0.8 MG/DL (0.2-1.0); BLOOD UREA NITROGEN 26 MG/DL (7-18); CALCIUM LEVEL 8.1 MG/DL (8.5-10.1); CARBON DIOXIDE LEVEL 29 MEQ/L (21-32); CHLORIDE LEVEL 105 MEQ/L (98-107); CREATININE FOR GFR 0.96 MG/DL (0.70-1.30); GLOMERULAR FILTRATION RATE > 60.0 (>56); GLUCOSE, FASTING 130 MG/DL (70-100); MAGNESIUM LEVEL 1.7 MG/DL (1.8-2.4); POTASSIUM SERUM 3.7 MEQ/L (3.5-5.1); SODIUM LEVEL 138 MEQ/L (136-145)
[2022-01-29 07:44] VITALS: BP 114/85
[2022-01-29] MEDS ORDERED: MAG SULF 1GM/100ML (MAG RUN) 1 GM in IV 1 EA IV ONE (08:00)
[2022-01-29] MEDS: ASPIRIN 81MG ENTERIC TABLET PO SCH (09:05)
[2022-01-29] MEDS: POTASSIUM CHLORIDE 10MEQ SR TABLET PO SCH ×2 (09:05→21:54)
[2022-01-29] MEDS: cloNIDine 0.1MG TABLET PO SCH ×2 (09:06→21:55)
[2022-01-29] MEDS: ATORVASTATIN 20 MG TAB PO SCH (09:06)
[2022-01-29] MEDS: APIXABAN 5 MG TAB (ELIQUIS) PO SCH ×2 (09:07→21:56)
[2022-01-29] MEDS: CARVedilol 6.25 MG TAB PO SCH ×2 (09:07→21:55)
[2022-01-29 11:42] VITALS: BP 120/95
[2022-01-29] MEDS: FUROSEMIDE 40MG/4ML VIAL (J1940) IV SCH (12:31)
[2022-01-29] MEDS: oxyCODONE 5MG TAB PO PRN (12:33)
[2022-01-29 15:45] VITALS: BP 131/90
[2022-01-29] MEDS: SODIUM CHLORIDE 0.9% INJ 10 ML SYR IV SCH (18:32)
[2022-01-29 20:00] VITALS: BP 138/95
[2022-01-29] MEDS: PANTOPRAZOLE 20 MG TAB PO SCH (21:00)
[2022-01-29] MEDS: MAGNESIUM OXIDE 400MG TAB (MAG-OX) PO SCH (21:55)
[2022-01-29] MEDS: QUEtiapine FUMARATE 50MG TAB PO SCH (21:55)
[2022-01-29 23:59] VITALS: BP 136/97
[2022-01-30] VITALS (7 sets, daily range): BP systolic 111–136; BP diastolic 82–100; PULSE 70
[2022-01-30] MEDS: FUROSEMIDE 40MG/4ML VIAL (J1940) IV SCH (00:01)
[2022-01-30 04:29] LABS: BASO # 0.1 10^3/uL (0.0-0.2); BASO % 0.5 % (0.0-1.0); EOS # 0.2 10^3/uL (0.0-0.5); EOS % 1.9 % (0.0-3.0); HEMATOCRIT 38.6 % (42.0-52.0); HEMOGLOBIN 11.6 g/dl (13.5-17.5); LYMPH % 19.3 % (24.0-44.0); MEAN CORPUSCULAR HEMOGLOBIN 25.1 pg (27.0-33.0); MEAN CORPUSCULAR HGB CONC 30.1 g/dl (32.0-36.5); MEAN CORPUSCULAR VOLUME 83.4 fl (80.0-96.0); MONO # 1.1 10^3/uL (0.0-0.8); MONO % 10.9 % (2.0-8.0); NEUTROPHILS # 6.8 10^3/uL (1.5-8.5); NEUTROPHILS % 66.4 % (36.0-66.0); PLATELET COUNT, AUTOMATED 200 10^3/uL (150-450); RED BLOOD COUNT 4.63 10^6/uL (4.30-6.10); WHITE BLOOD COUNT 10.2 10^3/uL (4.0-10.0)
[2022-01-30 05:04] LABS: BLOOD UREA NITROGEN 23 MG/DL (7-18); CARBON DIOXIDE LEVEL 31 MEQ/L (21-32); CHLORIDE LEVEL 105 MEQ/L (98-107); CREATININE FOR GFR 1.05 MG/DL (0.70-1.30); GLOMERULAR FILTRATION RATE > 60.0 (>56); GLUCOSE, FASTING 111 MG/DL (70-100); MAGNESIUM LEVEL 1.7 MG/DL (1.8-2.4); SODIUM LEVEL 140 MEQ/L (136-145)
[2022-01-30] MEDS: LEVOTHYROXINE 100MCG TABLET (0.1MG) PO SCH (06:01)
[2022-01-30] MEDS: ASPIRIN 81MG ENTERIC TABLET PO SCH (08:18)
[2022-01-30] MEDS: ATORVASTATIN 20 MG TAB PO SCH (08:18)
[2022-01-30] MEDS: MAGNESIUM OXIDE 400MG TAB (MAG-OX) PO SCH (08:18)
[2022-01-30] MEDS: POTASSIUM CHLORIDE 10MEQ SR TABLET PO SCH (08:18)
[2022-01-30] MEDS: APIXABAN 5 MG TAB (ELIQUIS) PO SCH (08:18)
[2022-01-30] MEDS: cloNIDine 0.1MG TABLET PO SCH (08:19)
[2022-01-30] MEDS: CARVedilol 6.25 MG TAB PO SCH (08:20)
[2022-01-30] MEDS ORDERED: MAG SULF 1GM/100ML (MAG RUN) 1 GM in IV 1 EA IV ONE (09:15)
[2022-01-30] MEDS: MIDODRINE 5 MG TAB PO SCH ×3 (09:42→16:11)
[2022-01-30] MEDS ORDERED: FUROSEMIDE 40MG/4ML VIAL (J1940) IV SCH (10:00)
[2022-01-30] MEDS ORDERED: LASI40TA9 PO (15:51)
[2022-01-30] MEDS ORDERED: POTA-141 PO (15:51)
[2022-01-30] MEDS ORDERED: ENTR1TAB PO (15:51)
[2022-01-30] MEDS ORDERED: METO25TA PO ×2 (15:53→17:21)
[2022-01-30] MEDS ORDERED: SELF1KIT MC (15:53)
[2022-01-30] MEDS ORDERED: NEOSPORIN OINT 0.9 GM PKT TOP ONE (16:00)
[2022-01-30] MEDS ORDERED: ENTRESTO 24-26MG TABLET (SACUBITRIL/VALSARTAN) PO SCH (16:00)
== END 2022-01-30 17:19 | disposition left against medical advice (07) | DRG 194 ==
LOC: M ED 09:11 → M ED INP 14:45 → ENRESERV 16:57 → M PCU 18:07
PROVIDERS: ADMIT Internal Medicine Nephrology; ATTEND Internal Medicine Nephrology
PROC: B246ZZZ Ultrasonography of Right and Left Heart (ICD-10-PCS; 2022-01-26)
PROC: 05HB33Z Insertion of Infusion Device into Right Basilic Vein, Percutaneous Approach (ICD-10-PCS; principal; 2022-01-26 12:09)
DX: I11.0 Hypertensive heart disease with heart failure (principal); N17.9 Acute kidney failure, unspecified; J90 Pleural effusion, not elsewhere classified; E87.5 Hyperkalemia; I73.9 Peripheral vascular disease, unspecified; Z95.2 Presence of prosthetic heart valve; Z79.01 Long term (current) use of anticoagulants; I25.2 Old myocardial infarction; Z86.718 Personal history of other venous thrombosis and embolism; E66.9 Obesity, unspecified; I25.10 Atherosclerotic heart disease of native coronary artery without angina pectoris; Z95.5 Presence of coronary angioplasty implant and graft; I87.8 Other specified disorders of veins; E03.9 Hypothyroidism, unspecified; F32.A Depression, unspecified; F41.9 Anxiety disorder, unspecified; G89.29 Other chronic pain; F90.9 Attention-deficit hyperactivity disorder, unspecified type; Z87.891 Personal history of nicotine dependence; Z20.822 Contact with and (suspected) exposure to COVID-19; R00.0 Tachycardia, unspecified; Z79.82 Long term (current) use of aspirin; Z79.890 Hormone replacement therapy; Z79.899 Other long term (current) drug therapy; Z91.199 Patient's noncompliance with other medical treatment and regimen due to unspecified reason; D63.8 Anemia in other chronic diseases classified elsewhere; E78.5 Hyperlipidemia, unspecified; Z95.820 Peripheral vascular angioplasty status with implants and grafts; I50.23 Acute on chronic systolic (congestive) heart failure

== ENCOUNTER 2023-08-08 15:32 | Inpatient (IN) | payer OTHER ==
[~2023-08-08] VITALS: Ht 177.8 cm; Wt 119.2 kg
[2023-08-08] VITALS (26 sets, daily range): BP systolic 72–144; BP diastolic 45–93; TEMP 98.2–104.7; O2SAT 81–100
[~2023-08-08 15:32] MED LIST changes: +ALBU8.5H INH; +CLON-412 PO; -CLOPIDOGREL 75 MG TAB PO SCH; +ELIQ5TAB PO; +ENTR1TAB PO; +LASI40TA9 PO; -LOSA100T45 PO; +LOSA100T46 PO; +METO25TA PO; +PANT20TA6 PO; +POTA-141 PO; +SELF1KIT MC
[2023-08-08 15:55] LABS: VENOUS BASE EXCESS -7.8 (-2.0-2.0); VENOUS HCO3 18.5 MMOL/L (23.0-27.0); VENOUS O2 SATURATION 45.1 % (60.0-80.0); VENOUS PARTIAL PRESSURE CO2 40.4 mmHg (38.0-50.0); VENOUS PH 7.278 UNITS (7.330-7.430); VENOUS STANDARD HCO3 17.1 MMOL/L; VENOUS TOTAL CO2 19.7 MMOL/L (24.0-28.0)
[2023-08-08] MEDS ORDERED: ACETAMINOPHEN 325 MG TAB PO ONE (15:55)
[2023-08-08] MEDS ORDERED: VANCOMYCIN HCL 1,000 MG, VIAL MATE ADAPTER 1 EACH in D5W 250 ML IV ONE ×2 (16:00→17:00)
[2023-08-08 16:02] LABS: HEMATOCRIT 44.3 % (42.0-52.0); HEMOGLOBIN 14.3 g/dl (13.5-17.5); MEAN CORPUSCULAR HEMOGLOBIN 29.5 pg (27.0-33.0); MEAN CORPUSCULAR HGB CONC 32.3 g/dl (32.0-36.5); MEAN CORPUSCULAR VOLUME 91.3 fl (80.0-96.0); RED BLOOD COUNT 4.85 10^6/uL (4.30-6.10); WHITE BLOOD COUNT 9.7 10^3/uL (4.0-10.0)
[2023-08-08 16:17] LABS: PLATELET COUNT, AUTOMATED 64 10^3/uL (150-450)
[2023-08-08 16:22] LABS: INR 1.42; PROTHROMBIN TIME 16.9 SECONDS (12.5-14.5)
[2023-08-08 16:24] LABS: CK-MB VALUE MASS 1.7 NG/ML (<3.6)
[2023-08-08 16:26] LABS: LYMPHOCYTES 5 % (16-44); METAMYELOCYTES 3 % (0-0); MONOCYTES 2 % (0-5); NEUTROPHILS 75 % (28-66)
[2023-08-08 16:27] LABS: PLATELET ESTIMATE DECREASED (NORMAL); TOXIC VACUOLATION 1+
[2023-08-08 16:28] LABS: THYROXINE (T4) 7.1 UG/DL (4.5-10.9)
[2023-08-08 16:29] LABS: THYROID STIMULATING HORMONE 10.683 uIU/ML (0.55-4.78)
[2023-08-08 16:43] LABS: ETHYL ALCOHOL (ETHANOL) < 0.003 % (0.000-0.010)
[2023-08-08 16:45] LABS: SALICYLATE LEVEL < 3.0 MG/DL (<30)
[2023-08-08] MEDS: MIDAZOLAM INJ 2MG/2ML VIAL IV STA (16:51)
[2023-08-08] MEDS: cefTRIAXone SOD 2 GM in D5W MINI-BAG PLUS 50 ML IV ONE (16:51)
[2023-08-08 16:52] LABS: ALBUMIN 2.7 G/DL (3.2-5.2); ALKALINE PHOSPHATASE 63 U/L (46-116); ALT/SGPT 37 U/L (7.0-40); AST/SGOT 39 U/L (<34); BILIRUBIN,DIRECT 0.4 MG/DL (<0.4); BILIRUBIN,TOTAL 0.7 MG/DL (0.3-1.2); BLOOD UREA NITROGEN 42 MG/DL (9-23); CALCIUM LEVEL 8.3 MG/DL (8.5-10.1); CARBON DIOXIDE LEVEL 23 MMOL/L (20-31); CHLORIDE LEVEL 102 MMOL/L (98-107); CPK CREATINE PHOSPHOKINASE 74 U/L (46-171); CREATININE FOR GFR 2.34 MG/DL (0.70-1.30); GLUCOSE, FASTING 183 MG/DL (60-100); MB/CK RELATIVE INDEX 2.29 (< OR =4); POTASSIUM SERUM 4.5 MMOL/L (3.5-5.1); SODIUM LEVEL 135 MMOL/L (136-145); TOTAL PROTEIN 6.4 G/DL (5.7-8.2)
[2023-08-08] MEDS: NS 1,000 ML IV ONE (16:52)
[2023-08-08] MEDS: ACETAMINOPHEN 650MG SUPP PR ONE (17:11)
[2023-08-08 17:20] LABS: OSMOLALITY SERUM 302 MOSM/KG (275-295)
[2023-08-08 17:58] LABS: CK-MB VALUE MASS 2.6 NG/ML (<3.6)
[2023-08-08 18:01] LABS: CPK CREATINE PHOSPHOKINASE 84 U/L (46-171); MB/CK RELATIVE INDEX 3.09 (< OR =4)
[2023-08-08] MEDS: VANCOMYCIN HCL 1,000 MG, VIAL MATE ADAPTER 1 EACH in D5W 250 ML IV ONE ×2 (18:25→20:20)
[2023-08-08] MEDS: LR 1,000 ML IV ONE (18:27)
[2023-08-08] MEDS: ACETAMINOPHEN *IV* 1,000 MG in IV 1 EA IV PRN (18:28)
[2023-08-08] MEDS ORDERED: HALOPERIDOL 5MG/ML 1ML VIAL As Ordered ONE (18:38)
[2023-08-08] MEDS: HALOPERIDOL 5MG/ML 1ML VIAL IV PRN (18:41)
[2023-08-08] MEDS: HALOPERIDOL 5MG/ML 1ML VIAL IV STA (18:45)
[2023-08-08] MEDS ORDERED: OLANZapine INTRAMUSCULAR 10MG VIAL IM ONE (18:50)
[2023-08-08] MEDS ORDERED: dexmedeTOMIDine (4MCG/ML)200MCG/50ML BTL (PRECEDEX) As Ordered ONE (18:50)
[2023-08-08] MEDS: dexmedeTOMidine 200 MCG in IV 1 EA IV SCH ×2 (18:58→21:46)
[2023-08-08] MEDS: OLANZapine INTRAMUSCULAR 10MG VIAL IM PRN (19:14)
[2023-08-08] MEDS ORDERED: FURO40TA2 PO (19:39)
[2023-08-08] MEDS ORDERED: CARV3.12 PO (19:39)
[2023-08-08] MEDS ORDERED: ATOR80TA59 PO (19:39)
[2023-08-08] MEDS ORDERED: QUET100T2 PO (19:39)
[2023-08-08] MEDS ORDERED: HOME MED LIST COMPLETE! XX SCH (19:45)
[2023-08-08] MEDS: SODIUM BICARBONATE 150 MEQ in STERILE WATER LITER BAG 1,000 ML IV SCH (19:55)
[2023-08-08] MEDS: HYDROCORTISONE 100MG/2ML VIAL IV ONE (21:47)
[2023-08-08] MEDS: NOREPINEPHRINE 4MG IN D5 250ML 4 MG in IV 1 EA IV SCH (22:50)
[2023-08-08 23:33] LABS: VENOUS BASE EXCESS -13.1 (-2.0-2.0); VENOUS HCO3 12.7 MMOL/L (23.0-27.0); VENOUS PH 7.245 UNITS (7.330-7.430); VENOUS STANDARD HCO3 14.6 MMOL/L; VENOUS TOTAL CO2 13.6 MMOL/L (24.0-28.0)
[2023-08-08] MEDS: NS 1,000 ML IV SCH (23:46)
[2023-08-09] VITALS (73 sets, daily range): BP systolic 67–130; BP diastolic 42–95; TEMP 97.5–102.4; O2SAT 69–100
[2023-08-09 03:15] LABS: HEPATITIS C VIRUS ABY INDEX > 11.00 INDEX (<0.8)
[2023-08-09 06:01] LABS: ABG BASE EXCESS -5.4 (-2.0-2.0); ABG O2 SATURATION 98.7 % (95.0-99.0); ABG PARTIAL PRESSURE CO2 25.8 mmHg (35.0-45.0); ABG PARTIAL PRESSURE O2 115.1 mmHg (75.0-100.0); ABG STANDARD HCO3 20.1 MMOL/L. (22.0-26.0); ABG TOTAL CO2 17.8 MMOL/L (22.0-29.0); ABG pH (ARTERIAL) 7.436 UNITS (7.350-7.450)
[2023-08-09] MEDS: HALOPERIDOL 5MG/ML 1ML VIAL IM STA (06:43)
[2023-08-09] MEDS: NS 250 ML IV SCH ×2 (06:49→07:28)
[2023-08-09] MEDS: dexmedeTOMidine 200 MCG in IV 1 EA IV SCH (08:23)
[2023-08-09] MEDS: PANTOPRAZOLE 40MG VIAL IV SCH (08:35)
[2023-08-09] MEDS ORDERED: MIDAZOLAM INJ 2MG/2ML VIAL As Ordered ONE (08:43)
[2023-08-09] MEDS: MIDAZOLAM INJ 2MG/2ML VIAL IV ONE (08:53)
[2023-08-09] MEDS: LR 500 ML IV ONE (09:38)
[2023-08-09 09:40] LABS: HEMATOCRIT 39.3 % (42.0-52.0); MEAN CORPUSCULAR HGB CONC 33.1 g/dl (32.0-36.5); MEAN CORPUSCULAR VOLUME 87.7 fl (80.0-96.0); RED BLOOD COUNT 4.48 10^6/uL (4.30-6.10); WHITE BLOOD COUNT 10.4 10^3/uL (4.0-10.0)
[2023-08-09 09:42] LABS: PLATELET COUNT, AUTOMATED 34 10^3/uL (150-450)
[2023-08-09 10:14] LABS: FIBRINOGEN 511 MG/DL (268-480); INR 1.33; PROTHROMBIN TIME 16.1 SECONDS (12.5-14.5)
[2023-08-09] MEDS: NS IV ONE (10:17)
[2023-08-09 10:24] LABS: ALBUMIN 2.5 G/DL (3.2-5.2); BILIRUBIN,TOTAL 0.5 MG/DL (0.3-1.2); CALCIUM LEVEL 7.5 MG/DL (8.5-10.1); CREATININE FOR GFR 1.77 MG/DL (0.70-1.30); GLOMERULAR FILTRATION RATE 42.7 (>56); POTASSIUM SERUM 4.2 MMOL/L (3.5-5.1); TOTAL PROTEIN 5.7 G/DL (5.7-8.2)
[2023-08-09 11:19] LABS: D-DIMER QUANT > 20.00 ug/mL (<0.5)
[2023-08-09] MEDS: VANCOMYCIN HCL 750 MG, VIAL MATE ADAPTER 1 EACH in D5W 250 ML IV SCH (12:14)
[2023-08-09] MEDS ORDERED: VANCOMYCIN HCL 750 MG, VIAL MATE ADAPTER 1 EACH in D5W 250 ML IV SCH (13:00)
[2023-08-09] MEDS: VANCOMYCIN HCL 500 MG in D5W MINI-BAG PLUS 100 ML IV SCH (13:40)
[2023-08-09] MEDS: cefTRIAXone SOD 2 GM in D5W MINI-BAG PLUS 50 ML IV SCH (16:39)
[2023-08-09] MEDS: HALOPERIDOL 5MG/ML 1ML VIAL IV STA (18:51)
[2023-08-10] VITALS (59 sets, daily range): BP systolic 82–115; BP diastolic 51–82; TEMP 101.1–103.1; O2SAT 87–100
[2023-08-10 06:12] LABS: HEMATOCRIT 39.6 % (42.0-52.0); HEMOGLOBIN 13.1 g/dl (13.5-17.5); MEAN CORPUSCULAR HGB CONC 33.1 g/dl (32.0-36.5); MEAN CORPUSCULAR VOLUME 87.8 fl (80.0-96.0); RED BLOOD COUNT 4.51 10^6/uL (4.30-6.10); WHITE BLOOD COUNT 10.7 10^3/uL (4.0-10.0)
[2023-08-10 06:15] LABS: PLATELET COUNT, AUTOMATED 23 10^3/uL (150-450)
[2023-08-10] MEDS: ALBUTEROL SULFATE 2.5MG/0.5ML INH NEB SOLN NEB PRN (06:20)
[2023-08-10 06:34] LABS: ALBUMIN 2.1 G/DL (3.2-5.2); BILIRUBIN,TOTAL 0.4 MG/DL (0.3-1.2); CALCIUM LEVEL 7.1 MG/DL (8.5-10.1); CREATININE FOR GFR 1.54 MG/DL (0.70-1.30); GLOMERULAR FILTRATION RATE 50.2 (>56); POTASSIUM SERUM 4.4 MMOL/L (3.5-5.1); TOTAL PROTEIN 5.1 G/DL (5.7-8.2)
[2023-08-10] MEDS: PIPERACILLIN/TAZOBACTAM SOD 4.5 GM in D5W MINI-BAG PLUS 50 ML IV SCH (07:43)
[2023-08-10] MEDS: dexmedeTOMidine 200 MCG in IV 1 EA IV SCH (09:17)
[2023-08-10] MEDS: cefTRIAXone SOD 2 GM in D5W MINI-BAG PLUS 50 ML IV SCH (10:57)
[2023-08-10] MEDS: CLINDAMYCIN 900 MG in IV 1 EA IV SCH (11:53)
[2023-08-10] MEDS ORDERED: dexmedeTOMidine 200 MCG in IV 1 EA IV SCH (15:35)
[2023-08-10 15:40] LABS: ABG BASE EXCESS -2.7 (-2.0-2.0); ABG HCO3 18.1 MMOL/L (22.0-26.0); ABG O2 SATURATION 96.4 % (95.0-99.0); ABG PARTIAL PRESSURE CO2 22.4 mmHg (35.0-45.0); ABG PARTIAL PRESSURE O2 74.3 mmHg (75.0-100.0); ABG STANDARD HCO3 22.2 MMOL/L. (22.0-26.0); ABG TOTAL CO2 18.8 MMOL/L (22.0-29.0); ABG pH (ARTERIAL) 7.525 UNITS (7.350-7.450)
[2023-08-10] MEDS: QUEtiapine FUMARATE 100 MG TAB PO SCH (20:13)
[2023-08-11] VITALS (15 sets, daily range): BP systolic 103–124; BP diastolic 64–87; TEMP 99.7–101.7; O2SAT 95–97
[2023-08-11 04:36] LABS: HEMATOCRIT 36.8 % (42.0-52.0); HEMOGLOBIN 12.2 g/dl (13.5-17.5); MEAN CORPUSCULAR HEMOGLOBIN 29.3 pg (27.0-33.0); MEAN CORPUSCULAR HGB CONC 33.2 g/dl (32.0-36.5); MEAN CORPUSCULAR VOLUME 88.2 fl (80.0-96.0); RED BLOOD COUNT 4.17 10^6/uL (4.30-6.10); WHITE BLOOD COUNT 10.1 10^3/uL (4.0-10.0)
[2023-08-11 04:42] LABS: PLATELET COUNT, AUTOMATED 19 10^3/uL (150-450)
[2023-08-11 05:04] LABS: ALBUMIN 2.1 G/DL (3.2-5.2); BILIRUBIN,TOTAL 0.7 MG/DL (0.3-1.2); CALCIUM LEVEL 7.1 MG/DL (8.5-10.1); CREATININE FOR GFR 1.5 MG/DL (0.70-1.30); GLOMERULAR FILTRATION RATE 51.7 (>56); POTASSIUM SERUM 3.8 MMOL/L (3.5-5.1); TOTAL PROTEIN 5.2 G/DL (5.7-8.2)
[2023-08-11] MEDS: LR 1,000 ML IV SCH (09:02)
[2023-08-11 11:37] LABS: MAGNESIUM LEVEL 1.9 MG/DL (1.8-2.4)
[2023-08-11] MEDS: SILVER SULFADIAZINE 1% CR 50 GM JAR TOP SCH (12:20)
[2023-08-12] VITALS (12 sets, daily range): BP systolic 91–149; BP diastolic 62–100; TEMP 99.1–102; O2SAT 94–98
[2023-08-12] MEDS: LEVALBUTEROL 1.25MG 0.5ML CONCENTRATE NEB NEB ONE (00:24)
[2023-08-12] MEDS: HALOPERIDOL 5MG/ML 1ML VIAL IM STA (00:25)
[2023-08-12 04:44] LABS: HEMATOCRIT 35.9 % (42.0-52.0); HEMOGLOBIN 11.8 g/dl (13.5-17.5); MEAN CORPUSCULAR HEMOGLOBIN 29.1 pg (27.0-33.0); MEAN CORPUSCULAR HGB CONC 32.9 g/dl (32.0-36.5); MEAN CORPUSCULAR VOLUME 88.4 fl (80.0-96.0); RED BLOOD COUNT 4.06 10^6/uL (4.30-6.10); WHITE BLOOD COUNT 9.8 10^3/uL (4.0-10.0)
[2023-08-12 04:46] LABS: PLATELET COUNT, AUTOMATED 20 10^3/uL (150-450)
[2023-08-12 05:18] LABS: ALKALINE PHOSPHATASE 50 U/L (46-116); ALT/SGPT 25 U/L (7.0-40); AST/SGOT 43 U/L (<34); BILIRUBIN,TOTAL 0.8 MG/DL (0.3-1.2); BLOOD UREA NITROGEN 34 MG/DL (9-23); CALCIUM LEVEL 7.1 MG/DL (8.5-10.1); CARBON DIOXIDE LEVEL 22 MMOL/L (20-31); CHLORIDE LEVEL 105 MMOL/L (98-107); CREATININE FOR GFR 1.18 MG/DL (0.70-1.30); GLOMERULAR FILTRATION RATE > 60.0 (>56); GLUCOSE, FASTING 112 MG/DL (60-100); POTASSIUM SERUM 3.8 MMOL/L (3.5-5.1); SODIUM LEVEL 138 MMOL/L (136-145); TOTAL PROTEIN 5.1 G/DL (5.7-8.2)
[2023-08-12] MEDS ORDERED: IPRATROPIUM 0.5MG/ALBUTEROL 2.5MG INH SOL UD 3ML (DUONEB) NEB PRN (08:25)
[2023-08-12] MEDS ORDERED: LEVALBUTEROL 1.25MG 0.5ML CONCENTRATE NEB NEB PRN (09:05)
[2023-08-12] MEDS: METOPROLOL SUCC *XL* 12.5MG PER 1/2 TAB (TopROL *XL*) PO SCH (09:11)
[2023-08-12] MEDS: NICOTINE 21MG/24HR 1 EA TRANSDERMAL TD SCH (09:13)
[2023-08-12 09:27] LABS: CK-MB VALUE MASS 2.4 NG/ML (<3.6)
[2023-08-12 09:28] LABS: CPK CREATINE PHOSPHOKINASE 161 U/L (46-171); MB/CK RELATIVE INDEX 1.49 (< OR =4)
[2023-08-12] MEDS ORDERED: MORPHINE 2 MG/ML 1ML VIAL As Ordered ONE (11:30)
[2023-08-12] MEDS: LEVALBUTEROL 1.25MG 0.5ML CONCENTRATE NEB NEB SCH (12:00)
[2023-08-12] MEDS ORDERED: ONDANSETRON 4MG ORAL DISINTEGRATING TAB PO PRN (19:30)
[2023-08-12] MEDS: MORPHINE 10MG/0.5ML ORAL CONCENTRATE SOLUTION U/D SL PRN (20:57)
[2023-08-12] MEDS: LORazepam 1 MG TAB PO PRN (22:18)
[2023-08-12] MEDS: ACETAMINOPHEN TAB 650MG DOSE (2X325MG) PO PRN (22:18)
[2023-08-13] MEDS: ALBUTEROL SULFATE 2.5MG/0.5ML INH NEB SOLN NEB PRN (00:23)
[2023-08-13] MEDS: ATROPINE SULFATE 1% OPHTH SOLN 2ML BTL SL PRN (18:28)
[2023-08-13] MEDS: MORPHINE 10MG/0.5ML ORAL CONCENTRATE SOLUTION U/D SL PRN (23:15)
[2023-08-13] MEDS: LORazepam 2 MG TAB PO PRN (23:16)
[2023-08-14] MEDS ORDERED: SCOPOLAMINE 1MG TRANSDERMAL PATCH TOP SCH (23:00)
== END 2023-08-14 22:50 | disposition expired | DRG 720 ==
LOC: M ED 15:32 → EDBD 15:32 → M ED INP 17:03 → M ICU 17:45 → M MS5PR 08-12 23:15
PROVIDERS: ADMIT Internal Medicine Pulmonary Disease; ATTEND Student in an Organized Health Care Education/Training Program
PROC: B246ZZZ Ultrasonography of Right and Left Heart (ICD-10-PCS; principal; 2023-08-09)
PROC: 02HV33Z Insertion of Infusion Device into Superior Vena Cava, Percutaneous Approach (ICD-10-PCS; 2023-08-09)
DX: A41.9 Sepsis, unspecified organism (principal); I21.A1 Myocardial infarction type 2; G93.41 Metabolic encephalopathy; I50.23 Acute on chronic systolic (congestive) heart failure; E87.20 Acidosis, unspecified; D69.59 Other secondary thrombocytopenia; R65.21 Severe sepsis with septic shock; N17.9 Acute kidney failure, unspecified; I11.0 Hypertensive heart disease with heart failure; E66.01 Morbid (severe) obesity due to excess calories; L97.929 Non-pressure chronic ulcer of unspecified part of left lower leg with unspecified severity; B19.20 Unspecified viral hepatitis C without hepatic coma; E03.9 Hypothyroidism, unspecified; E78.5 Hyperlipidemia, unspecified; F17.200 Nicotine dependence, unspecified, uncomplicated; G47.33 Obstructive sleep apnea (adult) (pediatric); I25.10 Atherosclerotic heart disease of native coronary artery without angina pectoris; I25.2 Old myocardial infarction; I73.9 Peripheral vascular disease, unspecified; I87.2 Venous insufficiency (chronic) (peripheral); L03.115 Cellulitis of right lower limb; L03.116 Cellulitis of left lower limb; Z66 Do not resuscitate; Z95.2 Presence of prosthetic heart valve; Z95.5 Presence of coronary angioplasty implant and graft; Z95.820 Peripheral vascular angioplasty status with implants and grafts; Z79.01 Long term (current) use of anticoagulants; Z79.82 Long term (current) use of aspirin; Z79.890 Hormone replacement therapy; Z79.899 Other long term (current) drug therapy; I46.9 Cardiac arrest, cause unspecified; B95.61 Methicillin susceptible Staphylococcus aureus infection as the cause of diseases classified elsewhere